=== PATIENT | female | born 1940 | race Caucasian/White ===

== ENCOUNTER 2022-03-02 12:36 | Outpatient (CLI) | payer MEDICARE, BC, SELFPAY | END 2022-03-02 12:37 | disposition home or self-care (01) | LOC: CT 03-21 10:59 | PROVIDERS: Visit Provider Orthopaedic Surgery Sports Medicine | DX: Z41.9 Encounter for procedure for purposes other than remedying health state, unspecified (principal) | CPT/HCPCS: 73200 ==

== ENCOUNTER 2022-03-07 11:00 | Outpatient (RCR) | payer MEDICARE, BC, SELFPAY ==
--- NOTE | 2022-02-07 13:14 | PT.OPDNX ---
PT [place] [facility] Daily [facility] Start: 01/25/22 15:46 Freq: Status: Active Protocol: Document 01/25/22 15:46 ENM (Rec: 01/25/22 15:50 ENM [id number]) E-Signed By Pearl Nguyen DPT PT OP Daily Progress Note Visit Information Note Type No Charge Visit Number 0 Cancellation Note Cancelled Documentation This documentation is for the purpose of transferring information from old EMR to new EMR only. It is not attached to any specific visit or billing. Insurance Information Recert Due Date 02/08/22 Insurance Name Medicare B Medical Diagnosis s/p right reverse TSA Treating Diagnosis right shoulder pain, decreased shoulder ROM, decreased shoulder strength, impaired posture Referring MD Dr. Ventura Home Exercise Home Exercise Comments seated cane flexion, towel slides, OTB rows and shoulder ext Access Code: [email or web address] URL: [email or web address] Date: 12/14/2021 Prepared by: Pearl Nguyen Exercises Supine Shoulder Flexion AAROM with Hands Clasped - 2-3 x daily - 7 x weekly - 1 sets - 5 reps - 20- 30s hold Supine Shoulder Flexion Extension AAROM with Dowel - 2 -3 x daily - 7 x weekly - 1 sets - 10 reps Standing Shoulder External Rotation AAROM with Dowel - 2- 3 x daily - 7 x weekly - 1 sets - 10 reps Objective Other/Pertinent Objective PROM R: flexion 129 with stretch felt at end range abduction 104 ER 67 IR 65 AROM 76 flexion in standing Functional Test Performed & Score SPADI: pain 22/50 44% disability 85/130 Patient Instructed in Risks/Benefits Yes Therapeutic Exercise Therapeutic Exercise: To Restore UBE resistance 75% level 4 x4 Functional Status mins (2 fwd and backwards) supine flexion AROM 2x7 (weak still while performing) seated flexion 2x8 (slight discomfort) seated scaption 2x8 standing towel slide flexion x10 (trialed diagonal but painful) OTB R row x15 (added to HEP) OTB R shoulder ext x15 (added to HEP) standing robbers AROM x10 (RUE only) Manual Therapy Techniques Manual Therapy Techniques STM to mid-distal biceps as most tone and tension in this area Plan of Care Physical Therapy Goals In 3-4 visits: 1. Patient will improve elbow extension without biceps tightness for full elbow ROM MET 2. Patient will display L shoulder PROM elevation >120 in order to progress to AROM MET 3. Patient will implement proper body mechanics with cooking to decrease occurrance of neck tightness MET In 6-10 visits: 1. Patient will be ind with HEP and self management of symptoms 2. Patient will display pain free AROM elevation >120 in order to reach into cupboards comfortably 3. Patient will be able to wash hair without any difficulty or pain 4. Patient will be able to bake and cook with no shoulder pain following for improved cooking tolerance MET 5. Patient will improve SPADI from 85/130 to 72 (MDC 13) to demonstrate improvements in QOL Daily Plan of Care Continue per POC Daily Plan of Care Comments Plan: progress AROM flexion serratus punches in standing WB ex as able AAROM ball roll on wall robber with resistance as able lawnmower Recertification Information Clinical Certification # #[id number] Patient's H.I.C.N.# # I Certify That I Have Established All Therapy Services/Plan Physician Signature Shows Agreement Dates & Medical Necessity Physician Comment/Change Comment or Changes Physician Signature & Date Please Sign/Date Here Physician NPI Number # Document 02/07/22 08:56 ENM (Rec: 02/07/22 10:48 ENM [id number]) E-Signed By Pearl Nguyen DPT PT OP Daily Progress Note Visit Information Note Type Daily Note,Recert/Progress Note Visit Number 10 Insurance Information Recert Due Date 05/08/22 Insurance Name Medicare B Medical Diagnosis s/p right reverse TSA Treating Diagnosis right shoulder pain, decreased shoulder ROM, decreased shoulder strength, impaired posture Referring MD Dr. Ventura Subjective Subjective Patient states that she was working in the garden and she tripped then caught herself. Both of her shoulders have been sore but more on the right side. Today it is feeling better but painful and hard to use the arm. It is still tough reaching all the way into the cupboard. Pain Comments mild-moderate anterior right shoulder, mod in L shoulder Home Exercise Home Exercise Comments seated cane flexion, towel slides, OTB rows and shoulder ext Access Code: [email or web address] URL: [email or web address] Date: 12/14/2021 Prepared by: Pearl Nguyen Exercises Supine Shoulder Flexion AAROM with Hands Clasped - 2-3 x daily - 7 x weekly - 1 sets - 5 reps - 20- 30s hold Supine Shoulder Flexion Extension AAROM with Dowel - 2 -3 x daily - 7 x weekly - 1 sets - 10 reps Standing Shoulder External Rotation AAROM with Dowel - 2- 3 x daily - 7 x weekly - 1 sets - 10 reps Objective Other/Pertinent Objective PROM R: Flexion 129 with stretch felt at end range Abduction 104 AROM R: 70 flexion in standing supine AROM able to perform x3 times before fatigue and pain tender to palpation along short head of biceps Functional Test Performed & Score SPADI: pain 22/50 44% disability 85/130 Patient Instructed in Risks/Benefits Yes Therapeutic Exercise Therapeutic Exercise Minutes (minutes) 18 Therapeutic Exercise: To Restore supine salutes 2x10 Functional Status standing scaption x10 (unable to perform on L due to pain) towel slide incline 2x10 ( fatigued at end of set) pulleys flexion x2 mins ( reporting improvements in pain while performing) Discussed icing to help with symptoms felt in anterior R shoulder after the fall as well as focus on towel slides and pulleys for home along with TB rows *difficulty with AROM this session able to perform 3 reps before pain as well as serratus punches Manual Therapy Techniques Manual Therapy Minutes (minutes) 9 Manual Therapy Techniques STM to mid-distal biceps as most tone and tension in this area *patient reporting improved pains following Treatment Minutes Timed Code Treatment Minutes 27 Total Treatment Time 27 Billing Units Manual Therapy Units 1 Therapeutic Exercise Units 1 Assessment/Impression Assessment/Impression Patient is over 3 months out from reverse total shoulder ( DOS 11/01/21). Patient has made steady improvements in shoulder PROM since start of PT. Now displaying shoulder flexion PROM >120 and abduction >100. Patients shoulder AROM continues to be limited to less than 90 deg in supine and standing. AROM more limited this session compared to last likely due to patients recent fall. Therapist reinforced to patient continuing to work on HEP as well as icing to help with symptoms of soreness from fall in the garden. Therapist will contact MD about current slow gains in motion as patient does not have as much active range of the right shoulder as one would expect this far out from surgery. Will reassess and progress patient as able next session. Plan of Care Physical Therapy Goals In 3-4 visits: 1. Patient will improve elbow extension without biceps tightness for full elbow ROM MET 2. Patient will display L shoulder PROM elevation >120 in order to progress to AROM MET 3. Patient will implement proper body mechanics with cooking to decrease occurrance of neck tightness MET In 6-10 visits: 1. Patient will be ind with HEP and self management of symptoms 2. Patient will display pain free AROM elevation >120 in order to reach into cupboards comfortably 3. Patient will be able to wash hair without any difficulty or pain 4. Patient will be able to bake and cook with no shoulder pain following for improved cooking tolerance MET 5. Patient will improve SPADI from 85/130 to 72 (MDC 13) to demonstrate improvements in QOL Daily Plan of Care Continue per POC Daily Plan of Care Comments Plan: progress AROM flexion serratus punches in standing deltoid strengthening WB ex as able AAROM ball roll on wall robber with resistance as able lawnmower Recertification Information Clinical Certification # #[id number] Patient's H.I.C.N.# # Initial Certification Date 11/16/21 Most Recent Visit 02/07/22 Recertification Start Date 02/07/22 Recertification Due Date 05/08/22 Reasons to Continue Skilled Therapy Patient continues to benefit from skilled PT to further progress functional shoulder strength and ROM. Patient has made steady improvements in shoulder PROM since start of PT. Shoulder AROM has been very slow to progress and limited to less than 90 deg. Rehabilitation Potential fair Continued Plan of Care and Interventions Plan to continue with manual therapy as needed to improve joint mobility and tissue tension. As well as therapeutic exercise to increase functional range and strength. I Certify That I Have Established All Therapy Services/Plan Physician Signature Shows Agreement Dates & Medical Necessity Physician Comment/Change Comment or Changes Physician Signature & Date Please Sign/Date Here Physician NPI Number #
== END 2022-03-07 13:27 | disposition home or self-care (01) ==
PROVIDERS: PCP Family Medicine; Visit Provider Orthopaedic Surgery Sports Medicine
DX: M25.511 Pain in right shoulder (principal)
CPT/HCPCS: 97110; 97140

== ENCOUNTER 2022-03-21 14:07 | Outpatient (CLI) | payer MEDICARE, BC, SELFPAY ==
[2022-03-21 17:55] LABS: Chloride* 103 mmol/L (96-114); Potassium* 4.4 mmol/L (3.6-5.1); Sodium* 139 mmol/L (135-149)
[2022-03-21 17:58] LABS: Blood Urea Nitrogen* 20 mg/dL (7-30); Calcium* 9.4 mg/dL (8.4-10.6); Carbon Dioxide* 28 mmol/L (20-32); Creatinine* 0.8 mg/dL (0.5-1.5); Estimated Glomerular Filt Rate 73 ml/min; Glucose* 97 mg/dL (60-115)
[2022-03-21 20:12] LABS: SARS PCR* Negative SARS-CoV-2 (Negative)
== END 2022-03-21 14:08 | disposition home or self-care (01) ==
PROVIDERS: Visit Provider Family Medicine
DX: Z20.822 Contact with and (suspected) exposure to COVID-19 (principal); Z01.818 Encounter for other preprocedural examination
CPT/HCPCS: 80048; 87635

== ENCOUNTER 2022-03-23 08:26 | Day surgery (SDC) | payer MEDICARE, BC, SELFPAY ==
[2022-03-23] VITALS (22 sets, daily range): BP systolic 98–141; BP diastolic 54–79; PULSE 61–78; RESP 16–20; TEMP 35.4–36.8; O2SAT 90–99; BMI 28.1
[2022-03-23] MEDS: CELECOXIB 200 MG CAPSULE PO (09:00)
[2022-03-23] MEDS: OXYCODONE (CR) 10 MG TAB.ER.12H PO (09:00)
[2022-03-23] MEDS: ACETAMINOPHEN 500 MG TABLET 1000 MG PO ×2 (09:00→18:25)
[2022-03-23] MEDS: SODIUM CHLORIDE 0.9 % (FLUSH) 10 ML SYRINGE IVF (09:15)
[2022-03-23] MEDS: LACTATED RINGERS 1000 ML 1,000 ML 100 ML IV (09:15)
[2022-03-23] MEDS: fentaNYL 100 MCG/2 ML inj IVP (09:54)
[2022-03-23] MEDS: MIDAZOLAM HCL 1 MG/ML inj IVP (09:54)
--- NOTE | 2022-03-23 09:58 | SUR.PREOP ---
TIME?OUT:?0953 PT/RN/MDA?VERIFICATION?OF?SURGICAL?SITE,?PROCEDURE,?AND?CONSENT OBTAINED?PRIOR?TO?INVASIVE?PROCEDURE.
--- NOTE | 2022-03-23 09:59 | W.PM.NB ---
Nerve Block Nerve Block Time Seen by Provider: 09:59 Date Seen: 03/23/22 Type of block requested by surgeon for post-operative analgesia: interscalene Side: left Time out performed: Yes Verification of patient name: Yes Verification of date of : Yes Site marking: site marked Name of person performing procedure: Richie Continuous monitoring Was continuous monitoring of O2 sat, B/P, insurance claims representative, recorded every 15 minutes?: Yes Procedure Checklist: sterile prep, needles and gloves Ultrasound guided. Images saved: Yes Medications given in 5ml increments after negative aspiration: Ropivicaine %: 0.5 mL: 20 Needle gauge: 22 Decadron (mg): 10 Precedex (mcg): 25 Patient tolerated procedure well: Yes Block Charges Block Charge (with Pro Fee): Brachial Plexus Use of Ultrasound Machine for Block: Yes- US Guidance/pain block
--- NOTE | 2022-03-23 10:40 | CRLHL7_ITS ---
For Patients: As a result of the Cures Act, medical imaging exams and procedure reports are released immediately into your electronic medical record. You may view this report before your referring provider. If you have questions, please contact your health care provider. Indication: POST OP Technique: Four views left shoulder Findings/Impression: Hardware from a reverse left total shoulder arthroplasty is in satisfactory position. Bone alignment is normal. No sign of acute fracture. Postop changes are within normal limits. Dictated by Yonatan Kay MD @ 03/24/2022 8:26:16 AM (Electronically Signed)
[2022-03-23] MEDS: CEFAZOLIN 2 GM in 0.9 % SODIUM CHLORIDE Mini-bag 100 ML IVPB (10:48)
--- NOTE | 2022-03-23 12:08 | PM.ORPRC ---
Procedure Note Date of procedure: 03/23/22 Procedure: PREOPERATIVE DIAGNOSIS: 1. Left shoulder cuff tear arthropathy 2. Left long head of the biceps tendinopathy and tenosynovitis POSTOPERATIVE DIAGNOSIS: 1. Left shoulder cuff tear arthropathy 2. Left long head of the biceps tendinopathy and tenosynovitis PROCEDURE: 1. Left reverse shoulder arthroplasty. 2. Left long head of biceps open tenodesis SURGEON: Kristofer Ventura MD. [employer] DIV[employer] DIRECTOR: Roberth Barry PA-C; Stan ESCOBAR - Of note, a skilled blood and plasma laboratory assistant was critical for this case to aid in patient positioning, tissue retraction, limb manipulation/positioning, retraction for glenoid exposure, which was challenging, awareness and protection of critical structures, and closure. ANESTHESIA: General plus supraclavicular block IMPLANTS: DJ0 surgical Altivate humeral stem size 10 small shell, short with P2 porous coating vitamin E neutral poly small socket insert RSP glenoid base plate P2 porous coating with 4 perimeter locking screws 32 neutral glenosphere with retaining screw COMPLICATIONS: None evident INDICATIONS: The patient is a pleasant 81-year-old female who has experienced severe left shoulder pain and difficulty with use. Workup included imaging which revealed severe osteoarthrosis along with concern for rotator cuff quality. Physical exam was consistent with associated pain. Given the deformity, the dysfunction, and the pain, and failure of nonoperative management, recommendation was made for surgery. * Of note, the humeral head was resting subluxed anteriorly/anterosuperiorly during positioning and preparation. It was reducible with a posterior directed force, but was greater than 50% subluxed. This is consistent with her cuff tear arthropathy pathology. DESCRIPTION OF PROCEDURE: Following a thorough discussion of risks, benefits, and alternatives, consent was obtained and the left shoulder was marked. The patient was brought to the operating room and placed supine on the operating table. Induction of anesthesia was undertaken. 1 g IV Ancef and 1 g tranexamic acid was administered within 1 hr of incision preoperatively. Appropriate time-out was performed identifying proper patient, site, and procedure. The operative extremity was prepped and draped in the appropriate sterile fashion using ChloraPrep after the patient was positioned in the lazy beach chair position with head in neutral alignment and all bony prominences well padded. A longitudinal incision was made for deltopectoral approach. Deltoid was retracted laterally. Cephalic vein was retracted laterally as well. The clavipectoral fascia was identified and divided longitudinally staying lateral to the conjoined tendon / coracoid. The conjoined tendon was protected with a blunt Hohmann. The long head of the biceps tendon was identified and the bicipital sheath released. The upper 1/5 of the pectoralis major was also released from its insertion. The long head of the biceps was tenodesed to the pectoralis major tendon. The remaining proximal tendon tissue was excised. The rotator cuff was inspected and found to have good integrity with the subscapularis but fair integrity with a supraspinatus], and a decision for a reverse shoulder arthroplasty was confirmed. The long head of biceps, of note, was significant flattened, thickened, with abundant tenosynovitis. A subscapularis cuff of tissue was left via tenotomy for later repair with the remaining subscapularis released in a subperiosteal fashion with the Bovie. This was tagged for later repair. The 3 sisters were cauterized. The upper subscapularis was released from the capsule with a curved Bishop scissors towards the glenoid. The inferior subscapularis was divided from the capsular tissue on its caudal surface with particular caution for the axillary nerve. This was palpated anterior to the subscapularis both prior to and near the finish of the case. Inferior humeral head osteophytes were excised with caution taken throughout the case with regards to the axillary nerve. The humerus was dislocated, and humeral head cut completed. The Sizer was placed and the central drill hole created. Then a protector plate was applied. We turned our attention to the glenoid. The humerus was retracted posteriorly. The subscap was protected anteriorly and the labrum/long head biceps origin was excised circumferentially. The capsule was released along the anterior and inferior portions of the glenoid cautiously with a Contreras elevator being careful not to penetrate deep. The glenoid had appropriate exposure, and was prepared with the cannulated system with a target of approximately 5-10? of inferior tilt and neutral anteversion (patient had 4 ? of retroversion initially). After placing the guide pin, the tap was placed followed by the glenoid reaming with the 2 different sized Reamer. Following this, preparation was complete with this central drill, the real base plate was opened, and inserted, and excellent purchase was achieved with the central screw. Peripheral screws were then drilled, measured, and placed accordingly again achieving excellent purchase. The glenosphere was then placed consistent with the preoperative plan utilizing the above noted glenosphere. After securing the glenosphere with the locking torque limited screw, attention was turned back to the humerus. A canal finer was placed followed by various reamers. The real humeral stem was then opened and inserted with excellent metaphyseal fit and stability. Trial poly was placed and the shoulder reduced. Excellent reduction and stability achieved. At this stage, the trial implants were removed, and the real implants inserted. A 3 minute Betadine soak was performed followed by a thorough irrigation with normal saline. Subscapularis was repaired with # 1 PDS to the cuff of tissue on the lesser tuberosity. Excellent reapproximation of tissue achieved. No rotator interval tissue repair was possible as the supraspinatus was nonexistent. Hemostasis was found to be appropriate. The deltopectoral interval was reapproximated with 0 Vicryl, subcutaneous and subcuticular closure was then performed with number 2-0 Vicryl and 4-0 Monocryl, respectively. A skilled blood and plasma laboratory assistant was critical for this case to aid in patient positioning, tissue retraction, limb manipulation/positioning, retraction for glenoid exposure, which was challenging, awareness and protection of critical structures, and closure. PLAN: 1. Sling at all times for the operative upper extremity. 2. AROM of elbow, forearm, wrist, and digits as tolerated. 3. PT/OT consults for education and assistance. 4. Social consult for discharge planning. 5. 23 hr perioperative antibiotics. 6. Early ambulation, and SCDs for DVT prophylaxis. 7. Admit to the hospital for the above 8. Analgesics p.r.n.
--- NOTE | 2022-03-23 12:44 | SUR.OPER ---
Patient transferred to OR3 from Same day surgery via bed. Patient was assisted to transfer to OR table. Patient was positioned per SAND TECHNICIAN and PA. patient was covered with warm blankets x2 to provide warmth and comfort.
--- NOTE | 2022-03-23 12:52 | W.ANESCHARGE ---
Anesthesia Charges Start Date/Time Anesthesia Start Date: 03/23/22 Anesthesia Start Time: 10:34 Stop Date/Time Anesthesia Stop Date: 03/23/22 Anesthesia Stop Time: 12:47 Summary Emergency: No Extremes of Age: Over 70-CPT 71544
--- NOTE | 2022-03-23 13:08 | W.ANESCHARGE ---
Anesthesia Charges Start Date/Time Anesthesia Start Date: 03/23/22 Anesthesia Start Time: 10:34 Stop Date/Time Anesthesia Stop Date: 03/23/22 Anesthesia Stop Time: 12:47 Summary Emergency: No Extremes of Age: Over 70-CPT 18784
[2022-03-23] MEDS: LACTATED RINGERS 1000 ML 1,000 ML 75 ML IV (13:25)
--- NOTE | 2022-03-23 14:11 | PM.IMCN1 ---
Date of Consult Consult date: 03/23/22 Primary Care Provider: Piero Vega MD Consult Narrative Reason for consult: Medical Management Narrative: Mariposa Dukes is a 81 year old female who underwent a successful Left Total Shoulder Arthroplasty today who is now resting comfortably. She has no complaints or concerns and states her pain is under good control Review of Systems Status of ROS: Reports: 10 or more systems reviewed and unremarkable except as noted in History and below PFSH PFSH Medical History (Updated 03/23/22 @ 14:24 by Evert Pierre MD) Diverticulosis (12/09/10) Hyperlipidemia (12/01/09) Hypertension (12/01/09) Left knee DJD Surgical History (Updated 03/23/22 @ 14:22 by Evert Pierre MD) History of arthroplasty of left shoulder History of right inguinal hernia repair (12/01/09) S/P cataract extraction S/p reverse total shoulder arthroplasty Status post reverse arthroplasty of left shoulder Family History Father Colon cancer Mother Heart problem Social History Highest level of school completed/degree received: GED or equivalent Smoking Status: Never smoker Do you use any of these nicotine containing products: None Second hand tobacco smoke exposure: No How often do you have a drink containing alcohol: 2-4 times a month Alcohol type: hard liquor How many standard drinks containing alcohol do you have on a typical day: 1 or 2 How often do you have six or more drinks on one occasion: Never AUDIT-C Alcohol total score: 2 Non-prescribed substance use: denies use Caffeine: Yes (coffee, 1 cup/am) Are you now , , , , never or living with a partner: Social isolation score (0-1 are the most socially isolated patients): 1 service: No Meds Home Medications and Allergies Home Medication Comments: Amlodipine 5 mg daily and Celebrex 200 mg daily Allergies Allergy/AdvReac Type Severity Reaction Status Date / Time No Known Allergies Allergy Verified 03/23/22 08:41 Exam Narrative: Exam Narrative: EXAM GENERAL: Patient appears comfortable and well. L shoulder is in a sling. EYES: No scleral icterus. THYROID: no thyroid nodules or thyromegaly. LYMPH: No supraclavicular or cervical lymphadenopathy. SKIN: Visible skin seen during exam normal or with benign process only. EXT: No dependent lower extremity pedal edema. HEART: Regular rate and rhythm with no murmurs, rubs, or gallops. LUNGS: Clear to auscultation bilaterally with no crackles or wheezes. ABD: Soft, non tender, non distended. PSYCH: Good eye contact, speech is not pressured. Const: Vital Signs, click to edit/add: Vital Signs - 24 hr 03/23/22 08:46 03/23/22 09:55 03/23/22 10:00 Temperature 98.1 F Pulse Rate 68 66 61 Respiratory Rate 16 16 16 Blood Pressure 124/79 123/71 104/55 L Pulse Oximetry 95 96 96 Oxygen Delivery Me thod Room Air Nasal Cannula Nasal Cannula Oxygen Flow Rate 2 2 03/23/22 10:05 03/23/22 10:15 03/23/22 12:45 Temperature 97.4 F L Pulse Rate 61 62 67 Respiratory Rate 16 16 16 Blood Pressure 105/57 L 98/54 L 141/74 H Pulse Oximetry 95 96 97 Oxygen Delivery Me thod Nasal Cannula Nasal Cannula Nasal Cannula Oxygen Flow Rate 2 2 1 03/23/22 12:50 03/23/22 12:55 03/23/22 13:00 Temperature Pulse Rate 65 66 67 Respiratory Rate 16 16 20 Blood Pressure 129/69 131/70 124/72 Pulse Oximetry 96 96 93 Oxygen Delivery Me thod Room Air Oxygen Flow Rate 03/23/22 13:05 03/23/22 13:10 Temperature Pulse Rate 67 69 Respiratory Rate 18 16 Blood Pressure 132/72 133/70 Pulse Oximetry 92 90 Oxygen Delivery Me thod Oxygen Flow Rate Labs Labs: Reviewed Assessment and Plan Assessment and plan (1) History of arthroplasty of left shoulder: Status: Acute Assessment and Plan: Pt doing well with no complaints. She states her pain is under good control and anticipates going home tomorrow. Pre op labs reasonable. Will hold Celebrex for now. Pt is to be a full code. (2) Hypertension: Status: Chronic Assessment and Plan: Will continue to monitor vital signs carefully and plan to resume her Amlodipine at 5 mg daily.
--- NOTE | 2022-03-23 15:58 | PC.NURSE ---
Pt. alert and oriented x4. Pleasant and cooperative. up to floor at 1320. Pt. rated pain 0/10. Dressing to left shoulder C/D/I. Cryocuff to site. Bilateral teds and plexi pulses applied. Pt. denies N/V and dizziness. Pt. up to bedside commode at 1445, voided and tolerated fine. Pt. tolerating ice chips and sips of water. Family at bedside. LR running at 75mls. IV to right hand intact and patent.
[2022-03-23] MEDS: CEFAZOLIN 1 GM in 0.9 % SODIUM CHLORIDE Mini-bag 100 ML IVPB (18:25)
[2022-03-23] MEDS: SENNOSIDES 1 TAB TABLET 2 TAB PO (21:09)
--- NOTE | 2022-03-23 23:39 | PC.NURSE ---
Pt up with SBA within the room. Denies N/V, and pain in left shoulder No feeling or movement of left fingers. Left fingers are warm with good capillary refill. This is patient's second shoulder surgery and understand POC when returning home. Cryocuff to left shoulder.
[2022-03-24] VITALS: BP 140/71; PULSE 84; RESP 20; TEMP 36.2; O2SAT 100
[2022-03-24] MEDS: ACETAMINOPHEN 500 MG TABLET 1000 MG PO ×2 (00:25→05:50)
[2022-03-24] MEDS: CEFAZOLIN 1 GM in 0.9 % SODIUM CHLORIDE Mini-bag 100 ML IVPB ×2 (00:31→08:43)
[2022-03-24] MEDS: MELATONIN 3 MG TABLET PO (01:04)
[2022-03-24 03:15] VITALS: BP 129/70; PULSE 73; RESP 20; TEMP 36.1; O2SAT 97
[2022-03-24] MEDS: LACTATED RINGERS 1000 ML 1,000 ML 75 ML IV (03:17)
[2022-03-24 06:28] LABS: Hematocrit 40.2 % (33.0-51.0); Mean Corpuscular HGB Conc 32 gm/dL (32-36); Mean Corpuscular Hemoglobin 32 pg (26-34); Mean Corpuscular Volume 99 fL (80-100); Platelet Count* 310 K/uL (140-440); Red Blood Count 4.05 m/uL (4.00-5.20); White Blood Count* 12.37 K/uL (4.50-11.00)
--- NOTE | 2022-03-24 06:39 | PC.NURSE ---
END OF SHIFT NOTE: PT PLEASANT AND COOPERATIVE. PT AMBULATES WITH GB, SBA. TOLERATES WELL. PT DENIES CP, SOB, N/V. PT DENIES PAIN TO RIGHT SHOULDER 0/10. CRYO CUFF PLACED ON RIGHT SHOULDER AND SUPPORTED WITH A PILLOW. LSCTA. VSS ON RA; AFEBRILE. ?
[2022-03-24 06:46] LABS: Potassium* 4.1 mmol/L (3.6-5.1); Sodium* 137 mmol/L (135-149)
[2022-03-24 06:49] LABS: Blood Urea Nitrogen* 15 mg/dL (7-30); Creatinine* 0.6 mg/dL (0.5-1.5); Est. Creatinine Clearance* 32.17; Estimated Glomerular Filt Rate 89 ml/min
[2022-03-24 07:06] LABS: Slide Review Reflex No
[2022-03-24] MEDS: SENNOSIDES 1 TAB TABLET 2 TAB PO (08:43)
[2022-03-24] MEDS: AMLODIPINE 5 MG TABLET PO (08:44)
[2022-03-24 08:45] VITALS: BP 107/82; PULSE 80; RESP 16; TEMP 36; O2SAT 100
--- NOTE | 2022-03-24 09:11 | P.DS_ITS ---
DS: Providers Provider Date Seen: 03/24/22 Primary care physician: Piero Vega MD Consults: 03/23/22 13:12 Consult to Occupational Therapy [CONS] Routine Comment: Reason(s) for OT Consult:: Evaluate and Treat Any Restrictions?:: See Comment Comment: ROM elbow, forearm, wrist, digits PRN Shoulder pendulums okay No active shoulder ROM Consult to Physical Therapy [CONS] Routine Comment: Reason(s) for PT Consult:: Evaluate and Treat Any Restrictions?:: No Restrictions Consult to Physician [CONS] Routine Comment: Consulting Provider: Hospitalists Has provider been notified: No Consult to Wood Pattern Maker [CONS] Routine Comment: Reason for Consult:: Discharge Planning Needs Attending Physician on discharge: Kristofer Ventura MD Date of Discharge: 03/24/22 DS: Diagnosis Discharge Diagnosis (1) Status post reverse arthroplasty of left shoulder: Status: Acute (2) Hypertension: Status: Chronic DS: Summary Hospital Course Hospital Course: 81-year-old female admitted to the hospital for left reverse total shoulder arthroplasty. Procedure was performed on the day of admission by Dr. Ventura. There were no operative complications. Postoperatively she has done well. Pain has been adequately controlled. She has noted no respiratory problems. She has been eating normally. Without nausea. Previous right shoulder surgery led to fairly severe problems with constipation. She is concerned about this. Status at Discharge Functional status at discharge: independent ambulation Overall status at discharge: patient is back to baseline Time Spent with Patient Time attestation: Total time spent providing and/or coordinating discharge services: Time spent: Less than 30 minutes Exam Narrative: Exam Narrative: She is alert and appears in no distress. Speech is normal. Breathing is unlabored. She has return of sensation and motion in her left hand. Good peripheral pulses. Good capillary refill. Const: Vital Signs, click to edit/add: Vital Signs - 24 hr 03/23/22 09:55 03/23/22 10:00 03/23/22 10:05 Temperature Pulse Rate 66 61 61 Pulse Rate [Left P ulse Oximeter] Respiratory Rate 16 16 16 Blood Pressure 123/71 104/55 L 105/57 L Blood Pressure [Ri ght Arm] Pulse Oximetry 96 96 95 Oxygen Delivery Me thod Nasal Cannula Nasal Cannula Nasal Cannula Oxygen Flow Rate 2 2 2 03/23/22 10:15 03/23/22 12:45 03/23/22 12:50 Temperature 97.4 F L Pulse Rate 62 67 65 Pulse Rate [Left P ulse Oximeter] Respiratory Rate 16 16 16 Blood Pressure 98/54 L 141/74 H 129/69 Blood Pressure [Ri ght Arm] Pulse Oximetry 96 97 96 Oxygen Delivery Me thod Nasal Cannula Nasal Cannula Oxygen Flow Rate 2 1 03/23/22 12:55 03/23/22 13:00 03/23/22 13:05 Temperature Pulse Rate 66 67 67 Pulse Rate [Left P ulse Oximeter] Respiratory Rate 16 20 18 Blood Pressure 131/70 124/72 132/72 Blood Pressure [Ri ght Arm] Pulse Oximetry 96 93 92 Oxygen Delivery Me thod Room Air Oxygen Flow Rate 03/23/22 13:10 03/23/22 13:20 03/23/22 13:30 Temperature 95.7 F L 97.6 F Pulse Rate 69 67 Pulse Rate [Left P ulse Oximeter] 67 Respiratory Rate 16 16 16 Blood Pressure 133/70 Blood Pressure [Ri ght Arm] 133/57 L 125/65 Pulse Oximetry 90 98 Oxygen Delivery Me thod Room Air Room Air Oxygen Flow Rate 03/23/22 13:45 03/23/22 14:00 03/23/22 14:15 Temperature 97.6 F 97.8 F Pulse Rate Pulse Rate [Left P ulse Oximeter] 68 69 72 Respiratory Rate 16 16 16 Blood Pressure Blood Pressure [Ri ght Arm] 126/68 130/72 127/64 Pulse Oximetry 98 97 97 Oxygen Delivery Me thod Room Air Room Air Room Air Oxygen Flow Rate 03/23/22 14:45 03/23/22 15:00 03/23/22 19:00 Temperature 97.8 F 98.2 F Pulse Rate Pulse Rate [Left P ulse Oximeter] 69 68 78 Respiratory Rate 16 18 18 Blood Pressure Blood Pressure [Ri ght Arm] 120/65 127/70 115/61 Pulse Oximetry 98 99 97 Oxygen Delivery Me thod Room Air Room Air Room Air Oxygen Flow Rate 03/23/22 18:00 03/23/22 17:00 03/23/22 16:00 Temperature 98.0 F 97.8 F Pulse Rate Pulse Rate [Left P ulse Oximeter] 74 75 76 Respiratory Rate 18 18 18 Blood Pressure Blood Pressure [Ri ght Arm] 101/60 103/71 102/73 Pulse Oximetry 98 97 97 Oxygen Delivery Me thod Room Air Room Air Room Air Oxygen Flow Rate 03/24/22 00:00 03/24/22 03:15 03/24/22 08:45 Temperature 97.1 F L 96.9 F L 96.8 F L Pulse Rate Pulse Rate [Left P ulse Oximeter] 84 73 80 Respiratory Rate 20 20 16 Blood Pressure Blood Pressure [Ri ght Arm] 140/71 H 129/70 107/82 Pulse Oximetry 100 97 100 Oxygen Delivery Me thod Room Air Room Air Room Air Oxygen Flow Rate Documenting provider has reviewed patient's vital signs: yes DS: Data Data Completed and Pending Labs on day of discharge: Labs from last 24 hours 03/24/22 03/24/22 05:49 05:49 WBC 12.37 H RBC 4.05 Hgb 13.0 Hct 40.2 MCV 99 MCH 32 MCHC 32 Plt Count 310 Sodium 137 Potassium 4.1 BUN 15 Creatinine 0.6 Estimated Creat Clear 32.17 Estimated GFR 89 Discharge Plan Discharge Disposition: Home, Self-Care Discharging Surgeon: Kristofer Ventura Follow-Up Appointment: 1 week PO with TERRANCE Prescriptions: New acetaminophen 500 mg capsule 500 - 1,000 mg PO Q6H MDD 4000mg PRNQty: 100 0RF oxycodone 5 mg tablet 2.5 - 5 mg PO Q4-6H MDD 6 PRN (Reason: pain) Qty: 30 0RF Rx Instructions: Take as needed for postop pain: 2.5mg mild pain, 5mg moderate-severe pain; wean as tolerated. senna 8.6 mg capsule 8.6 mg PO BID PRN (Reason: constipation) Qty: 100 0RF Rx Instructions: 1-4 capsules twice daily as needed Continued amlodipine 5 mg tablet 5 mg PO DAILY Qty: 90 3RF celecoxib [Celebrex] 200 mg capsule 200 mg PO QDAY Qty: 90 3RF Activity Level: Activity as Tolerated Activity Detail: No left upper extremity weight-bearing, or lifting; wear sling at all times except for elbow range of motion. Wound: ?Do not remove original dressing; we will remove this at first postop visit in 1 week. Only remove dressing if integrity is in question. ?No immersing wound in water; showering okay; light scrub with your hand and body soap, rinse, dab dry ?Sutures are under the skin, will dissolve; allow surgical glue to come off naturally; do not scrub the wound or apply ointments/lotions ?Call our office with any redness that streaks, excessive drainage from the wound, or wound gapping. Ice/Elevate: ?Ice as needed for swelling and discomfort (cryocuff or ice pack); elevate frequently above the heart DAVID socks: ?Wear for 1 month, remove for 1 hour 3 times per day ?These are frustrating to take on/off, but are important for blood clot prevention for 1 month after surgery Blood Clot Prevention (DVT): David socks Driving: ?Do not drive while taking narcotic pain medication ?No elective dental work for 6 months post-op. If there is an urgent/emergent dental need, contact our office for an antibiotic prescription. Smoking/Alcohol: ?Do not smoke; do no drink alcohol especially when taking postoperative oral narcotic medication Seek Care from you Primary Care Provider if you experience the following issues in the postoperative phase and beyond: ?Bacterial infections such as: pneumonia, bacterial skin infection (cellulitis), UTI, high fever, chills unrelated to the operative body part - call your primary care physician urgently for treatment in hopes to protect your health and the metal implant. Referrals: ?PT, OT per patient preference - evaluate/treat total left reverse total shoulder arthroplasty protocol (ROM, ADLs) Follow up: ?Ortho surgeon follow-up in 6 weeks; repeat radiographs 3 views left shoulder ?GAVIN-Sukh visit in 1 week *If there are any acute concerns regarding your surgery, please call our orthopedic clinic ([phone]) Discharge Diet: Regular Patient Instructions: Surgical Site Infections (DC) Forms: Work/Release Restrictions Follow-up: [facility] [Other] - 04/07/22 11:00 am Piero Vega MD [Primary Care Provider] - Roberth Barry PA-C [Physician Public Relations Associate] - 03/31/22 8:50 am Discharge Orders: Discharge Order (Routine); Ordered 03/24/22 Ordered By: Júnior Sears
--- NOTE | 2022-03-24 09:17 | P.ORPN_ITS ---
Subjective Subjective Date Seen: 03/24/22 Principal diagnosis: Status postop day 1, left reverse total shoulder arthroplasty Interval history: Patient reports doing well. No acute events over night. Pain managed with scheduled /PRN medications and ice (has not needed oxycodone). DVT protection: bilateral knee high Maximilian stockings, and SCDs. Denies fevers, chills, aches, N/V, CP, SOB/SHANE, tachycardia, or lightheadedness. Ortho Exam Narrative Exam Narrative: -Patient appears comfortable in recliner; no apparent acute distress -Alert and oriented times 3 -Operative left shoulder mildly swollen; soft tissues supple; no obvious erythema. Ecchymosis minimal. Warmth appropriate -Surgical dressing clean, dry, intact; no obvious drainage, no erythematous streaking peripheral to the bandage -bilateral calves are soft, nontender no swelling, edema, tenderness, erythema, discoloration, warmth, or palpable cords -2+ radial pulse, intact dermatomes and myotomes distally (5/5 strength) Const Vital Signs, click to edit/add: Vital Signs - 24 hr 03/23/22 09:55 03/23/22 10:00 03/23/22 10:05 Temperature Pulse Rate 66 61 61 Pulse Rate [Left Pulse Oximeter] Respiratory Rate 16 16 16 Blood Pressure 123/71 104/55 L 105/57 L Blood Pressure [Right Arm] Pulse Oximetry 96 96 95 Oxygen Delivery Method Nasal Cannula Nasal Cannula Nasal Cannula Oxygen Flow Rate 2 2 2 03/23/22 10:15 03/23/22 12:45 03/23/22 12:50 Temperature 97.4 F L Pulse Rate 62 67 65 Pulse Rate [Left Pulse Oximeter] Respiratory Rate 16 16 16 Blood Pressure 98/54 L 141/74 H 129/69 Blood Pressure [Right Arm] Pulse Oximetry 96 97 96 Oxygen Delivery Method Nasal Cannula Nasal Cannula Oxygen Flow Rate 2 1 03/23/22 12:55 03/23/22 13:00 03/23/22 13:05 Temperature Pulse Rate 66 67 67 Pulse Rate [Left Pulse Oximeter] Respiratory Rate 16 20 18 Blood Pressure 131/70 124/72 132/72 Blood Pressure [Right Arm] Pulse Oximetry 96 93 92 Oxygen Delivery Method Room Air Oxygen Flow Rate 03/23/22 13:10 03/23/22 13:20 03/23/22 13:30 Temperature 95.7 F L 97.6 F Pulse Rate 69 67 Pulse Rate [Left Pulse Oximeter] 67 Respiratory Rate 16 16 16 Blood Pressure 133/70 Blood Pressure [Right Arm] 133/57 L 125/65 Pulse Oximetry 90 98 Oxygen Delivery Method Room Air Room Air Oxygen Flow Rate 03/23/22 13:45 03/23/22 14:00 03/23/22 14:15 Temperature 97.6 F 97.8 F Pulse Rate Pulse Rate [Left Pulse Oximeter] 68 69 72 Respiratory Rate 16 16 16 Blood Pressure Blood Pressure [Right Arm] 126/68 130/72 127/64 Pulse Oximetry 98 97 97 Oxygen Delivery Method Room Air Room Air Room Air Oxygen Flow Rate 03/23/22 14:45 03/23/22 15:00 03/23/22 19:00 Temperature 97.8 F 98.2 F Pulse Rate Pulse Rate [Left Pulse Oximeter] 69 68 78 Respiratory Rate 16 18 18 Blood Pressure Blood Pressure [Right Arm] 120/65 127/70 115/61 Pulse Oximetry 98 99 97 Oxygen Delivery Method Room Air Room Air Room Air Oxygen Flow Rate 03/23/22 18:00 03/23/22 17:00 03/23/22 16:00 Temperature 98.0 F 97.8 F Pulse Rate Pulse Rate [Left Pulse Oximeter] 74 75 76 Respiratory Rate 18 18 18 Blood Pressure Blood Pressure [Right Arm] 101/60 103/71 102/73 Pulse Oximetry 98 97 97 Oxygen Delivery Method Room Air Room Air Room Air Oxygen Flow Rate 03/24/22 00:00 03/24/22 03:15 03/24/22 08:45 Temperature 97.1 F L 96.9 F L 96.8 F L Pulse Rate Pulse Rate [Left Pulse Oximeter] 84 73 80 Respiratory Rate 20 20 16 Blood Pressure Blood Pressure [Right Arm] 140/71 H 129/70 107/82 Pulse Oximetry 100 97 100 Oxygen Delivery Method Room Air Room Air Room Air Oxygen Flow Rate Assessment and Plan Assessment and plan (1) Status post reverse arthroplasty of left shoulder: Problem details: POD 1 Status: Acute (2) Hypertension: Status: Chronic Plan * PT/OT consult while in hospital * Complete 23 hour postop antibiotics * Medical management per hospitalist is appreciated * DVT ppx: teds and SCDs * Pain management as prescribed (she did not use very many narcotics for pain control in October 2021 for her right shoulder. * Discharge plan: Home today with (03/24/22) if medical appropriate, pain is well controlled, and safe deemed by therapy
--- NOTE | 2022-03-24 10:03 | PM.DS1 ---
DS: Providers Provider Date Seen: 03/24/22 Date of admission: 03/23/22 med/surg recovery Primary care physician: Piero Vega MD Consults: 03/23/22 13:12 Consult to Occupational Therapy [CONS] Routine Comment: Reason(s) for OT Consult:: Evaluate and Treat Any Restrictions?:: See Comment Comment: ROM elbow, forearm, wrist, digits PRN Shoulder pendulums okay No active shoulder ROM Consult to Physical Therapy [CONS] Routine Comment: Reason(s) for PT Consult:: Evaluate and Treat Any Restrictions?:: No Restrictions Consult to Physician [CONS] Routine Comment: Consulting Provider: Hospitalists Has provider been notified: No Consult to Thermostat Mechanic [CONS] Routine Comment: Reason for Consult:: Discharge Planning Needs Attending Physician on discharge: Kristofer Ventura MD Date of Discharge: 03/24/22 DS: Diagnosis Discharge Diagnosis (1) Status post reverse arthroplasty of left shoulder: Status: Acute Problem details: POD 1 DS: Summary Hospital Course Hospital Course: 81-year-old female admitted to the hospital for left reverse total shoulder arthroplasty. Procedure was performed on the day of admission by Dr. Ventura. There were no operative complications. Postoperatively she has done well. Pain has been adequately controlled. She has noted no respiratory problems. She has been eating normally. Without nausea. Previous right shoulder surgery led to fairly severe problems with constipation. She is concerned about this. The patient has a history of left shoulder cuff tear arthropathy, and long head biceps tendinopathy. After appropriate preoperative evaluation, the patient underwent left reverse total shoulder arthroplasty. Postoperatively, patient did quite well without significant pain. The patient was progressed to PT/OT and was felt ready for discharge to home with spouse. Status at Discharge Functional status at discharge: independent ambulation Overall status at discharge: patient is progressing back to baseline Time Spent with Patient Time attestation: Total time spent providing and/or coordinating discharge services: Time spent: Less than 30 minutes Exam Const: Vital Signs, click to edit/add: Vital Signs - 24 hr 03/23/22 10:05 08/24/22 10:15 03/23/22 12:45 Temperature 97.4 F L Pulse Rate 61 62 67 Pulse Rate [Left P ulse Oximeter] Respiratory Rate 16 16 16 Blood Pressure 105/57 L 98/54 L 141/74 H Blood Pressure [Ri ght Arm] Pulse Oximetry 95 96 97 Oxygen Delivery Me thod Nasal Cannula Nasal Cannula Nasal Cannula Oxygen Flow Rate 2 2 1 03/23/22 12:50 03/23/22 12:55 03/23/22 13:00 Temperature Pulse Rate 65 66 67 Pulse Rate [Left P ulse Oximeter] Respiratory Rate 16 16 20 Blood Pressure 129/69 131/70 124/72 Blood Pressure [Ri ght Arm] Pulse Oximetry 96 96 93 Oxygen Delivery Me thod Room Air Oxygen Flow Rate 03/23/22 13:05 03/23/22 13:10 03/23/22 13:20 Temperature 95.7 F L Pulse Rate 67 69 67 Pulse Rate [Left P ulse Oximeter] Respiratory Rate 18 16 16 Blood Pressure 132/72 133/70 Blood Pressure [Ri ght Arm] 133/57 L Pulse Oximetry 92 90 Oxygen Delivery Me thod Room Air Oxygen Flow Rate 03/23/22 13:30 03/23/22 13:45 03/23/22 14:00 Temperature 97.6 F 97.6 F Pulse Rate Pulse Rate [Left P ulse Oximeter] 67 68 69 Respiratory Rate 16 16 16 Blood Pressure Blood Pressure [Ri ght Arm] 125/65 126/68 130/72 Pulse Oximetry 98 98 97 Oxygen Delivery Me thod Room Air Room Air Room Air Oxygen Flow Rate 03/23/22 14:15 03/23/22 14:45 03/23/22 15:00 Temperature 97.8 F 97.8 F Pulse Rate Pulse Rate [Left P ulse Oximeter] 72 69 68 Respiratory Rate 16 16 18 Blood Pressure Blood Pressure [Ri ght Arm] 127/64 120/65 127/70 Pulse Oximetry 97 98 99 Oxygen Delivery Me thod Room Air Room Air Room Air Oxygen Flow Rate 03/23/22 19:00 03/23/22 18:00 03/23/22 17:00 Temperature 98.2 F 98.0 F Pulse Rate Pulse Rate [Left P ulse Oximeter] 78 74 75 Respiratory Rate 18 18 18 Blood Pressure Blood Pressure [Ri ght Arm] 115/61 101/60 103/71 Pulse Oximetry 97 98 97 Oxygen Delivery Me thod Room Air Room Air Room Air Oxygen Flow Rate 03/23/22 16:00 03/24/22 00:00 03/24/22 03:15 Temperature 97.8 F 97.1 F L 96.9 F L Pulse Rate Pulse Rate [Left P ulse Oximeter] 76 84 73 Respiratory Rate 18 20 20 Blood Pressure Blood Pressure [Al ght Arm] 102/73 140/71 H 129/70 Pulse Oximetry 97 100 97 Oxygen Delivery Me thod Room Air Room Air Room Air Oxygen Flow Rate 03/24/22 08:45 Temperature 96.8 F L Pulse Rate Pulse Rate [Left P ulse Oximeter] 80 Respiratory Rate 16 Blood Pressure [facility] 107/82 Pulse Oximetry 100 Oxygen Delivery Me thod Room Air Oxygen Flow Rate DS: Data Data Completed and Pending Labs on day of discharge: Labs from last 24 hours 03/24/22 03/24/22 05:49 05:49 WBC 12.37 H RBC 4.05 Hgb 13.0 Hct 40.2 MCV 99 MCH 32 MCHC 32 Plt Count 310 Sodium 137 Potassium 4.1 BUN 15 Creatinine 0.6 Estimated Creat Clear 32.17 Estimated GFR 89 Discharge Plan Discharge Disposition: Home, Self-Care Discharging Surgeon: Kristofer Ventura Follow-Up Appointment: 1 week PO with TERRANCE Prescriptions: New acetaminophen 500 mg capsule 500 - 1,000 mg PO Q6H MDD 4000mg PRNQty: 100 0RF oxycodone 5 mg tablet 2.5 - 5 mg PO Q4-6H MDD 6 PRN (Reason: pain) Qty: 30 0RF Rx Instructions: Take as needed for postop pain: 2.5mg mild pain, 5mg moderate-severe pain; wean as tolerated. senna 8.6 mg capsule 8.6 mg PO BID PRN (Reason: constipation) Qty: 100 0RF Rx Instructions: 1-4 capsules twice daily as needed Continued amlodipine 5 mg tablet 5 mg PO DAILY Qty: 90 3RF celecoxib [Celebrex] 200 mg capsule 200 mg PO QDAY Qty: 90 3RF Activity Level: Activity as Tolerated Activity Detail: No left upper extremity weight-bearing, or lifting; wear sling at all times except for elbow range of motion. Wound: ?Do not remove original dressing; we will remove this at first postop visit in 1 week. Only remove dressing if integrity is in question. ?No immersing wound in water; showering okay; light scrub with your hand and body soap, rinse, dab dry ?Sutures are under the skin, will dissolve; allow surgical glue to come off naturally; do not scrub the wound or apply ointments/lotions ?Call our office with any redness that streaks, excessive drainage from the wound, or wound gapping. Ice/Elevate: ?Ice as needed for swelling and discomfort (cryocuff or ice pack); elevate frequently above the heart DAVID socks: ?Wear for 1 month, remove for 1 hour 3 times per day ?These are frustrating to take on/off, but are important for blood clot prevention for 1 month after surgery Blood Clot Prevention (DVT): David socks Driving: ?Do not drive while taking narcotic pain medication ?No elective dental work for 6 months post-op. If there is an urgent/emergent dental need, contact our office for an antibiotic prescription. Smoking/Alcohol: ?Do not smoke; do no drink alcohol especially when taking postoperative oral narcotic medication Seek Care from you Primary Care Provider if you experience the following issues in the postoperative phase and beyond: ?Bacterial infections such as: pneumonia, bacterial skin infection (cellulitis), UTI, high fever, chills unrelated to the operative body part - call your primary care physician urgently for treatment in hopes to protect your health and the metal implant. Referrals: ?PT, OT per patient preference - evaluate/treat total left reverse total shoulder arthroplasty protocol (ROM, ADLs) Follow up: ?Ortho surgeon follow-up in 6 weeks; repeat radiographs 3 views left shoulder ?PA-C visit in 1 week *If there are any acute concerns regarding your surgery, please call our orthopedic clinic ([phone]) Discharge Diet: Regular Patient Instructions: Acetaminophen (By mouth), Oxycodone, Rapid Release (By mouth), Senna (By mouth), Surgical Site Infections (DC), Joint Replacement Surgery (DC) Forms: Work/Release Restrictions Follow-up: [facility] [Other] - 04/07/22 11:00 am Piero Vega MD [Primary Care Provider] - Roberth Barry PA-C [Physician Knife Machine Operator] - 03/31/22 8:50 am Discharge Orders: Discharge Order (Routine); Ordered 03/24/22 Ordered By: Júnior Sears
--- NOTE | 2022-03-24 10:35 | PC.SOCIAL ---
Checked in with Pt about discharging to home. Pt stated that she is feeling well and ready to go home. Pt stated that she has everything she needs at home. Pt states that she lives with her and he is very helpful and will make sure she is taken care of. Pt states that there are two stories but she will be able to stay in one area and be fine. Pt requested the phone number to the Social Work Department at [facility]. This worker provided her with the phone number.
--- NOTE | 2022-03-24 13:41 | PC.NURSE ---
Discharge-- Very pleasant and cooperative patient discharged to home with via wheelchair at approximately 1130. VSS and pt is afebrile. SPO2 maintained >90% on RA. Pain appeared well managed with scheduled Tylenol only. Dressing to left shoulder is C/D/I. Fingers remain somewhat numb on left hand r/t block, CMS otherwise WNL. LS CTA though mildly diminished in bases. She denied nausea and tolerated a regular diet without difficulty. Pt has had no post op BM yet, but is passing flatus. Discharge education was provided including diagnosis info, symptoms to report, medications and follow up plan. All questions answered. SL was removed with tip intact.
== END 2022-03-24 11:30 | disposition home or self-care (01) ==
LOC: OR 10:52 → MEDSURG 10:53
PROVIDERS: PCP Family Medicine; Visit Provider Orthopaedic Surgery Sports Medicine
PROC: 0RRJ0JZ Replacement of Right Shoulder Joint with Synthetic Substitute, Open Approach (ICD-10-PCS; CPT 23472; principal; 2022-03-23 10:45)
DX: M75.102 Unspecified rotator cuff tear or rupture of left shoulder, not specified as traumatic (principal); M75.22 Bicipital tendinitis, left shoulder; I10 Essential (primary) hypertension
CPT/HCPCS: 23472; 23430; 01638; 36415; 64415; 73030; 76942; 82565; 84132; 84295; 84520; 85027; 97110; 97116; 97161; 97165; 99100; A9270; C1713; C1776; J0330; J0690; J1100; J2250; J2370; J2405; J2704; J2795; J3010; J7120; L3670

== ENCOUNTER 2022-08-02 10:45 | Outpatient (RCR) | payer MEDICARE, BC, SELFPAY ==
--- NOTE | 2022-04-25 15:26 | PT.OPEX ---
PT [facility] Outpatient Eval PT [facility] Outpatient Eval Start: 04/25/22 12:48 Freq: Status: Active Protocol: Document 04/25/22 12:48 JUAN (Rec: 04/25/22 12:49 AVIGurvinder [id number]) E-signed By Celio Burdick DPT, MS Physical Therapy Outpatient Evaluation Insurance Information Recert Due Date 07/24/22 Insurance Name Medicare B,Blue Cross/Blue Shield Medical Diagnosis Left reverse total shoulder arthroplasty Treating Diagnosis L shoulder and biceps pain, decreased L shoulder PROM and AROM, and L UE weakness Subjective Subjective Pt presents to PT following L reverse total shoulder arthroplasty on 03/23/22. Pain levels have improved over the past week with high levels of pain the first 1.5 weeks post- op. Burning sensation in L biceps chief complaint. Injured shoulder falling on ice last winter with a successful R reverse TSA in October. Pt hopes to return to cooking and baking without pain. Denies significant PMH. AGGR factors: All activities with L UE, sleeping. ALLEV factors: rest , ice. Pain Comments -04/09 Current Work Status Retired Precautions Therapy Limitations/Systems Review Not Limited Objective Functional Test Performed & Score Quick DASH 72% Assessment Assessment/Impression Pt is doing well 4 weeks post- op with minimal pain and good precaution compliance. She responded very well to MT, pulleys, passive ROM and all exercises. Reviewed importance of avoiding shoulder IR, AROM and continued sling usage until 6 weeks post-op follow up. She will benefit from continued skilled therapy to address these limitations. Primary Functional Limitations All activities with L UE, sleeping Plan of Care Rehabilitation Potential Excellent Physical Therapy Goals Short-term goals to be completed in 4 weeks: 1. Pt will display improved L shoulder flex passive ROM >155 deg to progress to AROM stages of rehab. 2. Pt will report improved quality of sleep waking <2x per night due to L shoulder pain. Long-term goals to be completed in 12 weeks: 1. Pt will be independent and compliant with HEP 2. Pt will display improved L shoulder flex AROM >150 deg to perform lifting and dressing activities. 3. Pt will display improved L shoulder flex, ABD, ER, IR, low and mid trap strength of > 4/5 each to lift objects into overhead cabinets and cooking duties. 4. Pt will report >75% improvement in quick DASH questionnaire to significantly improve colt to daily activities. Coordination/Communication With Referral Source Treatment Plan/Direct Interventions Joint Mobilization,Manual Therapy,Therapeutic Exercises Frequency/Duration 1-2x per week for at least 8- 12 visits, decreasing visit frequency as able. Patient Will Be Discharged From Therapy Completion of LTG(s),Skills Plateau,Independent w/HEP, Independently Progressing Evaluation Billing Untimed Code Treatment Minutes 22 Complexity Moderate Certification Information Initial Certification Date 04/25/22 Ending Certification Date 07/24/22 Provider Signature Shows Agreement With POC & Medical Necessity Physician Comment/Change Comment or Changes Physician NPI Number #
--- NOTE | 2022-08-02 12:21 | PT.OPDNX ---
PT [place] Outpatient Daily Note PT [facility] Outpatient Daily Note Start: 04/25/22 12:48 Freq: Status: Active Protocol: Document 08/02/22 11:59 JUAN (Rec: 08/02/22 12:20 JUAN [id number]) E-signed By JANUARY SmallT, MS PT OP Daily Progress Note Visit Information Note Type Recert/Progress Note Visit Number [id number] Insurance Authorized Visits - Physician Authorized Visits Open order Insurance Information Recert Due Date 10/22/22 Insurance Name Medicare B,Blue Cross/Blue Shield Medical Diagnosis Left reverse total shoulder arthroplasty Treating Diagnosis L shoulder and biceps pain, decreased L shoulder PROM and AROM, and L UE weakness Subjective Subjective Pt reports her shoulder continues to feel better every few days being able to do more daily activities with no pain. Lifting above shoulder height remains difficult due to weakness, but knows this will take time. Able to do her hair by herself over the past 2 weeks. HEP going very well. Pain Comments 0-1/10 Objective Other/Pertinent Objective L UE PROM Flex: 160 deg ABD: 150 deg ER: 85 deg IR: 55 deg L shoulder AROM seated Flex 95 deg ABD: 80 deg ER: 85 deg IR: 55 deg Strength L UE Flex: 3-/5 ABD: 3-/5 Biceps: 4+/5 ER: 3+/5 IR: 4-/5 Patient Instructed in Risks/Benefits Yes Therapeutic Exercise Therapeutic Exercise Minutes (minutes) 28 Therapeutic Exercise: To Restore Biceps curl progressed 4# 10 x Functional Status 3 with fatigue Kwesi flex and scaption passive ROM correcting to perform slowly Supine chest press progressed AROM 6 x 3 Shoulder flex AAROM in supine clasped hands 90% on L with fatigue Progressed to shoulder flex I 5 x 3 Rows progressed BTB 14 x 3 Table shoulder alphabet x 3 Progressed to supine shoulder [place] AROM UBE fwd/bwd x 3 min for warmup Progressed to B shoulder ER RTB 8 x 3 Treatment Minutes Timed Code Treatment Minutes 28 Total Treatment Time 28 Billing Units Therapeutic Exercise Units 2 Assessment/Impression Assessment/Impression Pt continues to progress well overall in PT with continued R UE weakness and tightness limiting her ability to perform activities above shoulder height. Months of limited use of L shoulder AROM and use has led to slower than typical return for strength and AROM. She is making slow but steady progress towards her PT goals with excellent HEP compliance. She will attempt I sx management over the next 2-3 weeks, returning prn. Her chart will remain open for 60 days due to chronic nature of sxs. Plan of Care Physical Therapy Goals Short-term goals to be completed in 4 weeks: 1. Pt will display improved L shoulder flex passive ROM >155 deg to progress to AROM stages of rehab. MET. 2. Pt will report improved quality of sleep waking <2x per night due to L shoulder pain. MET Long-term goals to be completed in 12 weeks: 1. Pt will be independent and compliant with HEP. MET 2. Pt will display improved L shoulder flex AROM >150 deg to perform lifting and dressing activities. Progressing 3. Pt will display improved L shoulder flex, ABD, ER, IR, low and mid trap strength of > 4/5 each to lift objects into overhead cabinets and cooking duties. Progressed. 4. Pt will report >75% improvement in quick DASH questionnaire to significantly improve colt to daily activities. Progressing. Daily Plan of Care Change POC; See Comments Daily Plan of Care Comments See assessment Recertification Information Initial Certification Date 04/25/22 Recertification Start Date 07/24/22 Recertification Due Date 10/22/22 Reasons to Continue Skilled Therapy See assessment. Pt continues to display limited L shoulder AROM, weakness and decreased ability to perform daily activities. Rehabilitation Potential Good due to chronic nature of sxs. Continued Plan of Care and Interventions Continue 1x every 2-3 weeks with therapeutic exercise, manual therapy, and NM re-ed, transitioning to I sx management with her HEP, as able. Provider Signature Shows Agreement With POC & Medical Necessity Physician Comment/Change Comment or Changes Physician NPI Number #
== END 2023-02-16 23:59 | disposition home or self-care (01) ==
PROVIDERS: PCP Family Medicine; Visit Provider Orthopaedic Surgery Sports Medicine
DX: Z96.612 Presence of left artificial shoulder joint (principal); Z51.89 Encounter for other specified aftercare
CPT/HCPCS: 97110; 97140; 97162

== ENCOUNTER 2023-03-06 08:57 | Outpatient (CLI) | payer MEDICARE, BC, SELFPAY | END 2023-03-06 08:58 | disposition home or self-care (01) | PROVIDERS: PCP Family Medicine; Visit Provider Family Medicine | DX: I10 Essential (primary) hypertension (principal) | CPT/HCPCS: 80048 ==

== ENCOUNTER 2023-08-12 10:45 | Outpatient (CLI) | payer MEDICARE, BC, SELFPAY | END 2023-08-12 10:46 | disposition home or self-care (01) | LOC: NFLDREF 08-17 20:15 | PROVIDERS: PCP Family Medicine; Referring Provider Family Medicine; Visit Provider Nurse Practitioner Family | DX: R39.9 Unspecified symptoms and signs involving the genitourinary system (principal) | CPT/HCPCS: 87086; 87186 ==

== ENCOUNTER 2024-03-03 08:04 | Inpatient (IN) | payer MEDICARE, BC, SELFPAY ==
[2024-03-03] VITALS (28 sets, daily range): BP systolic 111–154; BP diastolic 58–84; PULSE 72–90; RESP 12–40; TEMP 36.8–38.4; O2SAT 88–97; BMI 25.9
--- NOTE | 2024-03-03 08:30 | ED.GENADULT ---
HPI - General Adult General Chief complaint: Chest Pain Stated complaint: Whole left side of body pain Time Seen by Provider: 03/03/24 08:09 Source: patient Mode of arrival: ambulatory Limitations: no limitations History of Present Illness HPI narrative: 83-year-old female coming in today complaining of back pain that radiates from her left shoulder all the way to her left hip that started approximately 4-1/2 hours ago. Patient states that this has happened to her in the past however a heating pad generally resolved the issue. This time the pain is constant and is not letting up. It causes her to feel short of breath as she cannot take a deep breath. Patient denies fevers or chills. She denies trauma, tripping or falling. She denies coughing. Nothing seems to make the pain better, deep breathing or movement makes it worse. 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) ?Z96.619 - Presence of unspecified artificial shoulder joint (ICD-10) Status post reverse arthroplasty of left shoulder (03/23/22) ?Z96.612 - Presence of left artificial shoulder joint (ICD-10) History of arthroplasty of left shoulder ?Z96.612 - Presence of left artificial shoulder joint (ICD-10) S/P cataract extraction ?Z98.49 - Cataract extraction status, unspecified eye (ICD-10) History of right inguinal hernia repair (12/01/09) ?Z98.890 - Other specified postprocedural states (ICD-10) ?Z87.19 - Personal history of other diseases of the digestive system (ICD-10) Family History Father Colon cancer Mother Heart problem Social History Narrative: -Leonel What is your current living situation?: I presently have a place to live Problems where you live: no known problems In the past 12 months, utilities in danger of being shut off: no In past 12 months, lack of transportation kept you from medical appts, meetings, work, or getting things needed for daily living: no In the past 12 mos, have been you worried that your food would run out before you had money to buy more?: never true In the past 12 mos, the food you bought just didn't last and you didn't have money to buy more?: never true Highest level of school completed/degree received: GED or equivalent Smoking Status: Never smoker Do you use any of these nicotine containing products: None Second hand tobacco smoke exposure: No How often do you have a drink containing alcohol: 2-4 times a month Alcohol type: hard liquor How many standard drinks containing alcohol do you have on a typical day: 1 or 2 How often do you have six or more drinks on one occasion: Never AUDIT-C Alcohol total score: 2 Non-prescribed substance use: denies use Caffeine: Yes (coffee, 1 cup/am) Are you now , , , , never or living with a partner: Social isolation score (0-1 are the most socially isolated patients): 1 How often does anyone, including family, friends and others, physically hurt you: never How often does anyone, including family, friends and others, insult or talk down to you: never How often does anyone, including family, friends and others, threaten you with harm: never How often does anyone, including family, friends and others, scream or curse at you: never Little interest or pleasure in doing things: more than half the days Feeling down, depressed, or hopeless: not at all service: No Exam Narrative: Exam Narrative: Well-nourished well-developed elderly patient in a moderate distress. Alert and oriented. Answers questions appropriately. Patient is tachypneic and hyperventilating-taking very fast short breaths. Her oxygen saturation is ranging from 88-92%. Patient is sitting in the bed, back is elevated. When I ask her if she lean forward so I can listen to her back she refuses stating that she can not move. HEENT: Normocephalic atraumatic. Pupils are equally round reactive to light. Extraocular muscles are intact. Conjunctivae are moist without any icterus noted. Moist mucous membranes. Cardiovascular: Heart is regular rate and rhythm S1 and S2 are present without any murmurs. Lungs: Clear to auscultation bilaterally no wheezes rhonchi or rales are appreciated. Patient cannot/will not take deep breaths. Abdomen: Soft and nontender nondistended with normal bowel sounds. Abdomen is slightly distended. I can palpate the left inguinal hernia, it is not tender to palpation. Extremities: Bilateral lower extremities are without edema. Normal DP and PT pulses. Skin: Well perfused. Const: Vital Signs, click to edit/add: Vital Signs - 24 hr 03/03/24 08:19 03/03/24 08:20 03/03/24 08:25 Temperature 98.3 F Pulse Rate Pulse Rate [Pulse Oximeter] 74 Respiratory Rate 40 H Blood Pressure Blood Pressure [Ri ght Upper Arm] 151/75 H Pulse Oximetry 89 89 94 Oxygen Delivery Me thod Room Air Nasal Cannula Oxygen Flow Rate 2 03/03/24 08:25 03/03/24 08:30 03/03/24 08:32 Temperature Pulse Rate 76 77 76 Pulse Rate [Pulse Oximeter] Respiratory Rate 38 H Blood Pressure 148/81 H Blood Pressure [Ri ght Upper Arm] Pulse Oximetry 96 97 97 Oxygen Delivery Me thod Oxygen Flow Rate 03/03/24 08:45 03/03/24 08:48 03/03/24 09:00 Temperature Pulse Rate 77 81 79 Pulse Rate [Pulse Oximeter] Respiratory Rate Blood Pressure 111/69 Blood Pressure [Ri ght Upper Arm] Pulse Oximetry 96 95 93 Oxygen Delivery Me thod Oxygen Flow Rate 03/03/24 09:03 03/03/24 09:15 03/03/24 09:17 Temperature Pulse Rate 80 80 80 Pulse Rate [Pulse Oximeter] Respiratory Rate 32 H Blood Pressure 141/73 H 140/84 H Blood Pressure [Ri ght Upper Arm] Pulse Oximetry 92 92 92 Oxygen Delivery Me thod Oxygen Flow Rate Course Course ED Course: IV was established and patient is given a dose of IV morphine. This helps the pain for short amount of time but the pain does come back. CBC shows a slightly elevated white cell count at 13.8, normal hemoglobin and platelet count. She does have 83.7% neutrophils. Her D-dimer is elevated at 1.6. Chemistries are unremarkable. LFTs unremarkable. Normal troponin. CRP is elevated at 4.2. Urine is orange in color with 2+ bilirubin which is not new for this patient. Patient given Toradol at this time, this seemed to help her pain quite a bit. Chest CT, PE protocol was done which did not show evidence of PE. Did show a left-sided pleural effusion with atelectasis favored over pneumonia. Abdominal CT done without contrast to look for renal stones, showed left-sided inguinal hernia containing colon. Discussed results of the abdominal CT scan with Dr. Mac, who recommends admission re-examination and potential surgery for inguinal hernia containing colon. Other things to consider would be a potential pneumonia causing her back pain. Vital Signs Vital signs: Initial Vital Signs Temperature 98.3 F 03/03/24 08:19 Temperature Source Temporal Artery Scan 03/03/24 08:19 Pulse Rate 74 03/03/24 08:19 Respiratory Rate 40 H 03/03/24 08:19 Blood Pressure 151/75 H 03/03/24 08:19 Blood Pressure Mean 100 03/03/24 08:19 Blood Pressure Position High-Fowlers 03/03/24 08:19 Pulse Oximetry 89 03/03/24 08:19 Oxygen Delivery Method Room Air 03/03/24 08:19 Vital Signs Temperature 98.3 F 03/03/24 08:19 Pulse Rate 74 03/03/24 08:19 Respiratory Rate 40 H 03/03/24 08:19 Blood Pressure 151/75 H 03/03/24 08:19 Pulse Oximetry 89 03/03/24 08:19 Oxygen Delivery Method Room Air 03/03/24 08:19 Temperature 98.3 F 03/03/24 08:19 Pulse Rate 80 03/03/24 09:17 Respiratory Rate 32 H 03/03/24 09:15 Blood Pressure 140/84 H 03/03/24 09:17 Pulse Oximetry 92 03/03/24 09:17 Oxygen Delivery Method Nasal Cannula 03/03/24 08:25 Oxygen Flow Rate 2 03/03/24 08:25 Medications Administered Medications: Discontinued Medications Generic Name Dose Route Start Last Admin Trade Name Antoinette PRN Reason Stop Dose Admin Ketorolac Tromethamine 15 mg 03/03/24 09:22 03/03/24 09:24 Ketorolac 15 Mg/Ml Inj IVP 03/03/24 09:23 15 mg ONCE ONE Administration Morphine Sulfate 2 mg 03/03/24 08:23 03/03/24 08:40 Morphine 2 Mg/Ml Inj IVP 03/03/24 08:24 2 mg ONCE ONE Administration Medical Decision Making MDM Narrative Medical decision making narrative: 83-year-old female presenting with back pain, finding of inguinal hernia containing colon. Patient will be admitted for further management and surgical consultation. Again, will consider possible pneumonia as cause of patient's symptoms. Lab Data Lab results reviewed: Yes I reviewed the patient's lab results Labs: Lab Results 03/03/24 03/03/24 03/03/24 Range/Units 08:25 08:30 09:35 WBC 13.84 H (4.50-11.00) K/uL RBC 4.42 (4.00-5.20) m/uL Hgb 14.0 (12.0-16.0) gm/dL Hct 44.9 (33.0-51.0) % MCV 102 H (80-100) fL MCH 32 (26-34) pg MCHC 31 L (32-36) gm/dL RDW Coeff of Reuben 14.2 (11.5-15.5) % Plt Count 325 (140-440) K/uL Neut % (Auto) 83.7 H (42.0-72.0) % Lymph % (Auto) 10.0 L (20-44) % [place] % (Auto) 5.4 (0.0-11.0) % Eos % (Auto) 0.1 (0.0-7.0) % Baso % (Auto) 0.1 (0.0-3.0) % Neut # (Auto) 11.60 H (1.7-7.0) K/uL Lymph # (Auto) 1.40 (0.90-2.90) K/uL [place] # (Auto) 0.70 (0.00-0.90) K/UL Eos # (Auto) 0.00 (0.00-0.50) K/uL Baso # (Auto) 0.00 (0.00-0.30) K/uL Abs Immat Gran (auto) 0.10 (0.00-0.30) K/uL Imm/Tot Granulo (auto) 0.7 % ESR 40 H (2-20) mm/hr D-Dimer Quant (PE/DVT) 1.63 H (0.00-0.50) ug/ml Sodium 140 (135-149) mmol/L Potassium 4.1 (3.6-5.1) mmol/L Chloride 107 (96-114) mmol/L Carbon Dioxide 24 (20-32) mmol/L Anion Gap 9 (7-15) mEq/L BUN 15 (7-30) mg/dL Creatinine 0.6 (0.5-1.5) mg/dL Estimated GFR 88 ml/min Glucose 134 H (60-115) mg/dL Lactate 1.6 (0.5-1.9) mmol/L Calcium 9.2 (8.4-10.6) mg/dL Total Bilirubin 0.7 (0.1-1.5) mg/dL Direct Bilirubin 0.4 (0.0-0.5) mg/dL AST 21 (12-35) U/L ALT 12 (4-35) U/L Alkaline Phosphatase 101 (40-150) U/L Troponin I < 0.01 L (0.01-0.04) ng/mL C-Reactive Protein 4.2 H (0.5-1.0) mg/dL NT-Pro-B Natriuret Pep 342 pg/mL Total Protein 7.5 (6.0-8.3) g/dL Albumin 4.2 (3.3-5.0) g/dL Urine Color [place] A (Yellow) Urine Appearance Slightly Cloudy A (Clear) Urine pH 7.5 (5.0-8.5) Ur Specific [place] 1.015 (1.000-1.030) Urine Protein Trace A (Negative) Urine Glucose (UA) Negative (Negative) Urine Ketones Negative (Negative) Urine Blood Negative (Negative) Urine Nitrite Negative (Negative) Urine Bilirubin 2+ A (Negative) Urine Urobilinogen 4.0 A (0.2-1.0) Ur Leukocyte Esterase Negative (Negative) Urine RBC 0-2 (0-2) Urine WBC 0-2 (0-5) Ur Squamous Epith Cells Few (None-Few) Urine Bacteria Few A (None) SARS-CoV-2 (PCR) Negative SARS-CoV-2 (Negative) Influenza Type A (PCR) Negative PCR FLU A (Negative) Influenza Type B (PCR) Negative PCR FLU B (Negative) RSV (PCR) Negative PCR RSV (Negative) POC Troponin I 0.01 (0.01-0.04) ng/ml Imaging Data CT scan - chest: Attestation: I have reviewed the pertinent imaging results. Radiologist's impression: CT chest PE was acquired with 95 cc Isovue 370 IV contrast. COMPARISON: None. FINDINGS: Heart and vasculature: Contrast opacification of the pulmonary arterial tree is adequate. No sign of pulmonary embolism. Heart size is normal. Thoracic aorta and pulmonary artery are normal in caliber. Lungs and pleura: Small left basilar pleural effusion with adjacent atelectasis favored over infiltrate. Small consolidation in the lingula could represent chronic scarring favored over pneumonia. Small areas of scarring also present in the right lung. No suspicious nodules. There are calcified granulomas. No pneumothorax. Lymph nodes/mediastinum: No mediastinal, hilar, or axillary adenopathy. Chest wall: No masses. Upper abdomen: No acute or significant findings. Bones: Unremarkable for age. IMPRESSION: 1. No pulmonary embolism. 2. Small left basilar pleural effusion with adjacent atelectasis favored over infiltrate. Scattered areas of scarring in both lungs. 3. No other acute or specific findings to explain shortness of breath. CT scan - abdomen: Attestation: I have reviewed the pertinent imaging results. Radiologist's impression: TECHNIQUE: CT abdomen and pelvis without contrast. COMPARISON: None. FINDINGS: Lower chest: Lingular and left lower lobe atelectasis and consolidation. Small left effusion. Right basilar atelectasis. Liver: Too small low-attenuation lesion left hepatic lobe.. To characterize Gallbladder and bile ducts: No stones or inflammation. No biliary dilatation. Pancreas: Unremarkable. No mass or inflammation. Spleen: Normal in size. No masses. Adrenal glands: Normal in size. No nodules. Kidneys: No renal calculi. No hydronephrosis. 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 GI tract: Diverticulosis. Vasculature: Abdominal aorta is normal in caliber. Lymph nodes: No lymphadenopathy. Peritoneum/Abdominal Wall: Left inguinal hernia containing colon. There is fat stranding within the inguinal hernia sac. Mild diverticulitis not excluded. Bowel is otherwise unremarkable. Normal appendix. There is no obstruction visualized. Pelvis: Unremarkable. No pelvic masses. Bones: Unremarkable for age. IMPRESSION: 1. No renal calculi or hydronephrosis. 2. Diverticulosis. Small left inguinal hernia containing colon. There is fat stranding within the hernia sac. Mild diverticulitis not excluded. There is no bowel obstruction seen. Discharge Plan Discharge Clinical Impression: Incarcerated inguinal hernia, Back pain Patient Disposition: Admitted As Observation Condition: Stable Prescriptions: No Action amlodipine 5 mg tablet 5 mg PO DAILY Qty: 90 3RF tramadol 50 mg tablet 50 mg PO Q6H PRN (Reason: pain) Qty: 30 1RF celecoxib [Celebrex] 200 mg capsule 200 mg PO QDAY Qty: 90 3RF Follow Up/Referrals: Piero Vega MD [Primary Care Provider] -
[2024-03-03 08:38] LABS: Lactate* 1.6 mmol/L (0.5-1.9)
[2024-03-03] MEDS: MORPHINE 2 MG/ML inj IVP ×2 (08:40→20:18)
[2024-03-03 08:46] LABS: Troponin, Point-of-Care* 0.01 ng/ml (0.01-0.04)
[2024-03-03 08:50] LABS: Basophils Percent Auto 0.1 % (0.0-3.0); Eosinophils Percent Auto 0.1 % (0.0-7.0); Hematocrit 44.9 % (33.0-51.0); Immature Granulocytes Pct Auto 0.7 %; Mean Corpuscular HGB Conc 31 gm/dL (32-36); Mean Corpuscular Hemoglobin 32 pg (26-34); Mean Corpuscular Volume 102 fL (80-100); Monocytes Percent Auto 5.4 % (0.0-11.0); Neutrophils Percent Auto 83.7 % (42.0-72.0); Platelet Count* 325 K/uL (140-440); RDW Coefficient of Variation % 14.2 % (11.5-15.5); Red Blood Count 4.42 m/uL (4.00-5.20); Slide Review Reflex No; White Blood Count* 13.84 K/uL (4.50-11.00)
[2024-03-03 08:56] LABS: Albumin* 4.2 g/dL (3.3-5.0); Chloride* 107 mmol/L (96-114)
[2024-03-03 08:57] LABS: Potassium* 4.1 mmol/L (3.6-5.1); Sodium* 140 mmol/L (135-149)
[2024-03-03 08:59] LABS: Anion Gap 9 mEq/L (7-15); Aspartate Amino Transferase* 21 U/L (12-35); Bilirubin Direct* 0.4 mg/dL (0.0-0.5); Bilirubin Total* 0.7 mg/dL (0.1-1.5); Carbon Dioxide* 24 mmol/L (20-32); Creatinine* 0.6 mg/dL (0.5-1.5); D Dimer Quantitative* 1.63 ug/ml (0.00-0.50); Estimated Glomerular Filt Rate 88 ml/min
[2024-03-03 09:00] LABS: Alanine Aminotransferase* 12 U/L (4-35); Alkaline Phosphatase* 101 U/L (40-150); Blood Urea Nitrogen* 15 mg/dL (7-30); Calcium* 9.2 mg/dL (8.4-10.6); Glucose* 134 mg/dL (60-115); Total Protein* 7.5 g/dL (6.0-8.3)
[2024-03-03 09:03] LABS: C Reactive Protein* 4.2 mg/dL (0.5-1.0)
--- NOTE | 2024-03-03 09:09 | CRLHL7_ITS ---
For Patients: As a result of the Century Cures Act, medical imaging exams and procedure reports are released immediately into your electronic medical record. You may view this report before your referring provider. If you have questions, please contact your health care provider. INDICATION: Left flank pain TECHNIQUE: CT abdomen and pelvis without contrast. COMPARISON: None. FINDINGS: Lower chest: Lingular and left lower lobe atelectasis and consolidation. Small left effusion. Right basilar atelectasis. Liver: Too small low-attenuation lesion left hepatic lobe.. To characterize Gallbladder and bile ducts: No stones or inflammation. No biliary dilatation. Pancreas: Unremarkable. No mass or inflammation. Spleen: Normal in size. No masses. Adrenal glands: Normal in size. No nodules. Kidneys: No renal calculi. No hydronephrosis. 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 GI tract: Diverticulosis. Vasculature: Abdominal aorta is normal in caliber. Lymph nodes: No lymphadenopathy. Peritoneum/Abdominal Wall: Left inguinal hernia containing colon. There is fat stranding within the inguinal hernia sac. Mild diverticulitis not excluded. Bowel is otherwise unremarkable. Normal appendix. There is no obstruction visualized. Pelvis: Unremarkable. No pelvic masses. Bones: Unremarkable for age. IMPRESSION: 1. No renal calculi or hydronephrosis. 2. Diverticulosis. Small left inguinal hernia containing colon. There is fat stranding within the hernia sac. Mild diverticulitis not excluded. There is no bowel obstruction seen. Please note that all CT scans at this facility use dose modulation, iterative reconstruction, and/or weight-based dosing when appropriate to reduce radiation dose to as low as reasonably achievable. Dictated by Rossy Fish MD @ 03/03/2024 10:19:26 AM (Electronically Signed)
--- NOTE | 2024-03-03 09:09 | CRLHL7_ITS ---
For Patients: As a result of the Century Cures Act, medical imaging exams and procedure reports are released immediately into your electronic medical record. You may view this report before your referring provider. If you have questions, please contact your health care provider. INDICATION: Shortness of breath. Elevated D-dimer. TECHNIQUE: CT chest PE was acquired with 95 cc Isovue 370 IV contrast. COMPARISON: None. FINDINGS: Heart and vasculature: Contrast opacification of the pulmonary arterial tree is adequate. No sign of pulmonary embolism. Heart size is normal. Thoracic aorta and pulmonary artery are normal in caliber. Lungs and pleura: Small left basilar pleural effusion with adjacent atelectasis favored over infiltrate. Small consolidation in the lingula could represent chronic scarring favored over pneumonia. Small areas of scarring also present in the right lung. No suspicious nodules. There are calcified granulomas. No pneumothorax. Lymph nodes/mediastinum: No mediastinal, hilar, or axillary adenopathy. Chest wall: No masses. Upper abdomen: No acute or significant findings. Bones: Unremarkable for age. IMPRESSION: 1. No pulmonary embolism. 2. Small left basilar pleural effusion with adjacent atelectasis favored over infiltrate. Scattered areas of scarring in both lungs. 3. No other acute or specific findings to explain shortness of breath. Please note that all CT scans at this facility use dose modulation, iterative reconstruction, and/or weight-based dosing when appropriate to reduce radiation dose to as low as reasonably achievable. Dictated by Abner Cowan MD @ 03/03/2024 10:15:41 AM (Electronically Signed)
[2024-03-03 09:14] LABS: NT Pro B Type NatriureticPept* 342 pg/mL; Troponin I* < 0.01 ng/mL (0.01-0.04)
[2024-03-03] MEDS: KETOROLAC 15 MG/ML inj IVP (09:24)
[2024-03-03 09:28] LABS: Erythrocyte SedimentationRate* 40 mm/hr (2-20)
[2024-03-03 09:44] LABS: Appearance Urine Slightly Cloudy (Clear); Bilirubin Urine 2+ (Negative); Blood Urine Negative (Negative); Color Urine Orange (Yellow); Glucose Urine Negative (Negative); Ketones Urine Negative (Negative); Leukocyte Esterase Urine Negative (Negative); Nitrite Urine Negative (Negative); Protein Urine Trace (Negative); Specific Gravity Urine 1.015 (1.000-1.030); pH Urine 7.5 (5.0-8.5)
[2024-03-03 09:44] LABS: PCR FLU A Negative PCR FLU A (Negative); PCR FLU B Negative PCR FLU B (Negative); PCR RSV Negative PCR RSV (Negative); SARS PCR* Negative SARS-CoV-2 (Negative)
[2024-03-03 09:56] LABS: Bacteria Urine Few; RBC Urine 0-2 (0-2); Squamous Epithelial Cell Urine Few (None-Few); WBC Urine 0-2 (0-5)
[2024-03-03 11:42] LABS: HCO3 VBG 28 mmol/L (21-28); PCO2 VBG 46 mmHG (40-50); PO2 VBG 31.2 mmHG (25-47); pH VBG 7.387 (7.32-7.43)
--- NOTE | 2024-03-03 12:02 | P.GSCN_ITS ---
History of Present Illness Consult details Date Seen: 03/03/24 Consult date: 03/03/24 Narrative: Patient is an 83-year-old female who presented to the emergency department today with left-sided back pain. She states that last night she was awoke in with pain which radiated from her buttocks to her left shoulder blade. This was all posteriorly. She had similar symptoms a week ago. The occurred before she went to bed. At that time she use a heating pad which helped. Last night the heating pad did not take her pain away. This caused significant short of breath. She denies any chest pain with this. When she presented to the emergency department she was hypoxic and tachypneic with respiratory rate in the 30s and sats in the 80s. This improved with pain medication and oxygen administration. She had a CT PE protocol which did not show a PE. She has a small left pleural effusion and atelectasis on that side. CT scan stone protocol was obtained which showed no evidence of kidney stone, however she did have a bowel containing inguinal hernia with possibly fat stranding noted. Labs were significant for an elevated white blood cell count of 13 and CRP of 4. Electrolytes were normal. The patient denies nausea or vomiting. She denies abdominal pain. She states that she has had the hernia for several years. This was noticed on exam by her primary care provider. It has never been painful to her. She states that she never has had issues with this hernia ?like the other one. She is referring to her right side where she previously underwent a right inguinal hernia repair She had a bowel movement last night which she states was looser than usual. She has had colonoscopies in the past. She is not sure when her last 1 was but states she was told that she could stop because of her age. She has not had any urinary symptoms. She currently denies any pain in the abdomen or pain over her hernia. It is painful for her to take a deep breath. That pain is located in her posterior chest. 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) ?Z96.612 - Presence of left artificial shoulder joint (ICD-10) History of arthroplasty of left shoulder ?Z96.612 - Presence of left artificial shoulder joint (ICD-10) S/P cataract extraction ?Z98.49 - Cataract extraction status, unspecified eye (ICD-10) History of right inguinal hernia repair (12/01/09) ?Z98.890 - Other specified postprocedural states (ICD-10) ?Z87.19 - Personal history of other diseases of the digestive system (ICD-10) Family History Father Colon cancer Mother Heart problem Social History Narrative: -Leonel What is your current living situation?: I presently have a place to live Problems where you live: no known problems In the past 12 months, utilities in danger of being shut off: no In past 12 months, lack of transportation kept you from medical appts, meetings, work, or getting things needed for daily living: no In the past 12 mos, have been you worried that your food would run out before you had money to buy more?: never true In the past 12 mos, the food you bought just didn't last and you didn't have money to buy more?: never true Highest level of school completed/degree received: GED or equivalent Smoking Status: Never smoker Do you use any of these nicotine containing products: None Second hand tobacco smoke exposure: No How often do you have a drink containing alcohol: 2-4 times a month Alcohol type: hard liquor How many standard drinks containing alcohol do you have on a typical day: 1 or 2 How often do you have six or more drinks on one occasion: Never AUDIT-C Alcohol total score: 2 Non-prescribed substance use: denies use Caffeine: Yes (coffee, 1 cup/am) Are you now , , , , never or living with a partner: Social isolation score (0-1 are the most socially isolated patients): 1 How often does anyone, including family, friends and others, physically hurt you : never How often does anyone, including family, friends and others, insult or talk down to you: never How often does anyone, including family, friends and others, threaten you with harm: never How often does anyone, including family, friends and others, scream or curse at you: never Little interest or pleasure in doing things: more than half the days Feeling down, depressed, or hopeless: not at all service: No Meds Home Medications and Allergies Allergies Allergy/AdvReac Type Severity Reaction Status Date / Time No Known Allergies Allergy Verified 03/03/24 08:19 Exam Narrative: Exam Narrative: General appearance: Alert, cooperative, and in no distress Eyes: PERRLA, eye lids clear, and sclera white HENT Head: Normocephalic Ears: External ears normal Pulmonary: Sats are in the low 90s on room air. Her respiratory rate is approximately 20. She has pain with deep inspiration on her left back. Cardiovascular Heart: Regular rate Extremities: warm and well perfused Gastrointestinal Abdominal: Soft. Nontender. No scars. She does have a hernia noted in her left groin. This is not reducible. This is nontender to palpation. The patient denies any discomfort despite my attempts at reduction. Neurologic: No focal deficits Psychiatric: Alert, oriented, cooperative, normal affect. Const: Vital Signs, click to edit/add: Vital Signs - 24 hr 03/03/24 08:19 03/03/24 08:20 03/03/24 08:25 Temperature 98.3 F Pulse Rate Pulse Rate [Pulse Oximeter] 74 Respiratory Rate 40 H Blood Pressure Blood Pressure [Ri ght Upper Arm] 151/75 H Pulse Oximetry 89 89 94 Oxygen Delivery Me thod Room Air Nasal Cannula Oxygen Flow Rate 2 03/03/24 08:25 03/03/24 08:30 03/03/24 08:32 Temperature Pulse Rate 76 77 76 Pulse Rate [Pulse Oximeter] Respiratory Rate 38 H Blood Pressure 148/81 H Blood Pressure [Ri ght Upper Arm] Pulse Oximetry 96 97 97 Oxygen Delivery Me thod Oxygen Flow Rate 03/03/24 08:45 03/03/24 08:48 03/03/24 09:00 Temperature Pulse Rate 77 81 79 Pulse Rate [Pulse Oximeter] Respiratory Rate Blood Pressure 111/69 Blood Pressure [Ri t Upper Arm] Pulse Oximetry 96 95 93 Oxygen Delivery Me thod Oxygen Flow Rate 03/03/24 09:03 03/03/24 09:15 03/03/24 09:17 Temperature Pulse Rate 80 80 80 Pulse Rate [Pulse Oximeter] Respiratory Rate 32 H Blood Pressure 141/73 H 140/84 H Blood Pressure [Ri ght Upper Arm] Pulse Oximetry 92 92 92 Oxygen Delivery Me thod Oxygen Flow Rate 03/03/24 09:54 03/03/24 10:02 03/03/24 10:17 Temperature Pulse Rate 90 84 82 Pulse Rate [Pulse Oximeter] Respiratory Rate 14 12 16 Blood Pressure 137/67 114/58 L 116/59 L Blood Pressure [Ri ght Upper Arm] Pulse Oximetry 95 94 91 Oxygen Delivery Me thod OxyMask Oxygen Flow Rate 2 03/03/24 10:32 03/03/24 10:47 03/03/24 11:00 Temperature Pulse Rate 80 81 76 Pulse Rate [Pulse Oximeter] Respiratory Rate 12 14 Blood Pressure 128/63 127/68 Blood Pressure [Ri ght Upper Arm] Pulse Oximetry 90 93 88 Oxygen Delivery Me thod Room Air Room Air Oxygen Flow Rate 03/03/24 11:02 03/03/24 11:17 03/03/24 11:50 Temperature 98.3 F Pulse Rate 77 76 Pulse Rate [Pulse Oximeter] 74 Respiratory Rate 14 14 14 Blood Pressure 129/68 125/64 Blood Pressure [Ri ght Upper Arm] 151/75 H Pulse Oximetry 93 94 Oxygen Delivery Me thod OxyMask Oxygen Flow Rate 1 1 Results Labs Labs: Abnormal lab results 03/03/24 03/03/24 Range/Units 08:25 09:35 WBC 13.84 H (4.50-11.00) K/uL MCV 102 H (80-100) fL MCHC 31 L (32-36) gm/dL Neut % (Auto) 83.7 H (42.0-72.0) % Lymph % (Auto) 10.0 L (20-44) % Neut # (Auto) 11.60 H (1.7-7.0) K/uL ESR 40 H (2-20) mm/hr D-Dimer Quant (PE/DVT) 1.63 H (0.00-0.50) ug/ml Glucose 134 H (60-115) mg/dL Troponin I < 0.01 L (0.01-0.04) ng/mL C-Reactive Protein 4.2 H (0.5-1.0) mg/dL Urine Color [place] A (Yellow) Urine Appearance Slightly Cloudy A (Clear) Urine Protein Trace A (Negative) Urine Bilirubin 2+ A (Negative) Urine Urobilinogen 4.0 A (0.2-1.0) Urine Bacteria Few A (None) Diabetes panel 03/03/24 Range/Units 08:25 Sodium 140 (135-149) mmol/L Potassium 4.1 (3.6-5.1) mmol/L Chloride 107 (96-114) mmol/L Carbon Dioxide 24 (20-32) mmol/L BUN 15 (7-30) mg/dL Creatinine 0.6 (0.5-1.5) mg/dL Glucose 134 H (60-115) mg/dL Calcium 9.2 (8.4-10.6) mg/dL AST 21 (12-35) U/L ALT 12 (4-35) U/L Alkaline Phosphatase 101 (40-150) U/L Total Protein 7.5 (6.0-8.3) g/dL Albumin 4.2 (3.3-5.0) g/dL Calcium panel 03/03/24 Range/Units 08:25 Calcium 9.2 (8.4-10.6) mg/dL Albumin 4.2 (3.3-5.0) g/dL Pituitary panel 03/03/24 Range/Units 08:25 Sodium 140 (135-149) mmol/L Potassium 4.1 (3.6-5.1) mmol/L Chloride 107 (96-114) mmol/L Carbon Dioxide 24 (20-32) mmol/L BUN 15 (7-30) mg/dL Creatinine 0.6 (0.5-1.5) mg/dL Glucose 134 H (60-115) mg/dL Calcium 9.2 (8.4-10.6) mg/dL Adrenal panel 03/03/24 Range/Units 08:25 Sodium 140 (135-149) mmol/L Potassium 4.1 (3.6-5.1) mmol/L Chloride 107 (96-114) mmol/L Carbon Dioxide 24 (20-32) mmol/L BUN 15 (7-30) mg/dL Creatinine 0.6 (0.5-1.5) mg/dL Glucose 134 H (60-115) mg/dL Calcium 9.2 (8.4-10.6) mg/dL Total Bilirubin 0.7 (0.1-1.5) mg/dL AST 21 (12-35) U/L ALT 12 (4-35) U/L Alkaline Phosphatase 101 (40-150) U/L Total Protein 7.5 (6.0-8.3) g/dL Albumin 4.2 (3.3-5.0) g/dL All other labs normal. Imaging CT scan - chest: report reviewed and image reviewed Additional studies: CT chest with IV contrast IMPRESSION: 1. No pulmonary embolism. 2. Small left basilar pleural effusion with adjacent atelectasis favored over infiltrate. Scattered areas of scarring in both lungs. 3. No other acute or specific findings to explain shortness of breath. Please note that all CT scans at this facility use dose modulation, iterative reconstruction, and/or weight-based dosing when appropriate to reduce radiation dose to as low as reasonably achievable. Dictated by Abner Cowan MD @ 03/03/2024 10:15:[address] abdomen/Pelvis without contrast IMPRESSION: 1. No renal calculi or hydronephrosis. 2. Diverticulosis. Small left inguinal hernia containing colon. There is fat stranding within the hernia sac. Mild diverticulitis not excluded. There is no bowel obstruction seen. Please note that all CT scans at this facility use dose modulation, iterative reconstruction, and/or weight-based dosing when appropriate to reduce radiation dose to as low as reasonably achievable. Dictated by Rossy Fish MD @ 03/03/2024 10:19:26 AM Progress Note:A&P Assessment and plan (1) Back pain: Status: Acute (2) Incarcerated inguinal hernia: Status: Acute (3) Pleural effusion, left: Status: Acute Plan The patient is an 83-year-old female who presents the ER with left-sided back pain which seems pleuritic in nature. She is also noted to have an incarcerated left inguinal hernia containing colon. There is possibly some fat stranding here which could indicate diverticulitis. She has no sign of obstruction. Clinically she is not obstructed. I discussed the situation with the patient her . I explained that normally an incarcerated inguinal hernia containing bowel in the setting of elevated white blood cell count would need to be emergently repaired, however her symptoms seem to be pulmonary in nature, and she has no pain over the hernia itself. She states that she does not feel that it has changed. She does have a small pleural effusion and atelectasis per the radiologist. Is possible that she could have pneumonia which is causing her symptoms. Again her symptoms seem more related to a pulmonary process then the hernia. I explained that if she has an incarcerated hernia and the blood supply to the intestine was cut off then this would be a surgical emergency. Usually in this setting patients will have discomfort in the area of the hernia or some other symptoms. I stated that I had discussed simply repairing her hernia to ensure that that was not the cause of her pain, however after visiting with her in seeing her discomfort with deep breathing which is localized to her left posterior chest, I think that her reason for admission was related to her lungs and also if she has pneumonia or other pulmonary process, this could be worsened by general anesthetic. At this time I would recommend broad antibiotic coverage for pneumonia. This would also cover for diverticulitis. If at any point she did were to develop pain in her groin or an obstructive picture, then I would recommend proceeding to the OR for repair of the hernia regardless of pulmonary status. However this time we will take a watchful waiting approach. The patient and her expressed understanding. I did speak with the hospitalist Dr. Shane about this.
[2024-03-03 12:59] LABS: Procalcitonin* 0.07 ng/mL (<0.50)
[2024-03-03] MEDS: predniSONE 20 MG TABLET PO (15:36)
[2024-03-03] MEDS: TRAMADOL HCL 50 MG TABLET PO ×2 (15:36→22:32)
--- NOTE | 2024-03-03 15:54 | P.IMHP_ITS ---
Hospitalist- H&P: HPI History of Present Illness Date Seen: 03/03/24 Chief complaint: Whole left side of body pain Narrative: Mariposa Dukes is a 83 year old female admitted to the hospital with severe left-sided back and flank pain. Patient developed this pain at 4:00 a.m. today. It awoke her from sleep. She reported was so painful does difficult to move. Movement of her trunk made the pain worse. Taking a deep breath also made the pain worse. She describes the location of the pain is on the left side of her back extending from her left shoulder down to her left buttock. There has not been any injury to this area. The pain is described as sharp and constant. It is now better than it was earlier today. She is not aware of any specific treatment that has helped the pain. She had a similar episode 11 days ago where she awoke from sleep in the morning with the same location and type of pain. The symptoms resolved as the day went on and it did not bother her again until this morning. She has not had a fever, cough, cold, anterior chest pain, abdominal pain, nausea, vomiting, loss of appetite, constipation, diarrhea, urinary problems, kidney stones, neck pain, headache, visual disturbance, jaw claudication. She reports the pain takes her breath away. At rest she is not dyspneic and but she reports it is painful to take a deep breath. The pain does not extend into her left arm or her left leg. Does not cross the midline to the right side of her back. She reports he is generally healthy. She has hypertension for which she takes amlodipine and arthritis in her knees for which she takes Celebrex and acetaminophen. She has had both shoulders replaced a couple years ago without complications. She does have some chronic left shoulder pain that she reports is due to his always sleeping on her left shoulder at night. She is known to have a left inguinal hernia. This is been diagnosed a couple years ago by her primary care doctor. She has not had any problems with it such as pain or bowel obstruction. Review of Systems Narrative: She reports feeling well other than these 2 episodes of severe left back pain in the last 11 days. No other symptoms of illness. 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 Code status is DNR. She does not smoke. She drinks 1 drink a week. What is your current living situation?: I presently have a place to live Problems where you live: no known problems Problems where you live details: N/A In the past 12 months, utilities in danger of being shut off: no In past 12 months, lack of transportation kept you from medical appts, meetings, work, or getting things needed for daily living: no In the past 12 mos, have been you worried that your food would run out before you had money to buy more?: never true In the past 12 mos, the food you bought just didn't last and you didn't have money to buy more?: never true Highest level of school completed/degree received: some college, no degree Smoking Status: Never smoker Do you use any of these nicotine containing products: None Second hand tobacco smoke exposure: No How often do you have a drink containing alcohol: monthly or less Alcohol type: hard liquor How many standard drinks containing alcohol do you have on a typical day: 1 or 2 How often do you have six or more drinks on one occasion: Never AUDIT-C Alcohol total score: 1 Non-prescribed substance use: denies use Caffeine: Yes (1 cup coffee daily) Are you now , , , , never or living with a partner: Social isolation score (0-1 are the most socially isolated patients): 1 How often does anyone, including family, friends and others, physically hurt you : never How often does anyone, including family, friends and others, insult or talk down to you: never How often does anyone, including family, friends and others, threaten you with harm: never How often does anyone, including family, friends and others, scream or curse at you: never Little interest or pleasure in doing things: more than half the days Feeling down, depressed, or hopeless: not at all service: No Meds Home Medications and Allergies Home Medications ?Medication ?Instructions ?Recorded ?Confirmed ?Type celecoxib 200 mg capsule (Celebrex) 200 mg PO DAILY pain 03/03/24 03/03/24 History Allergies Allergy/AdvReac Type Severity Reaction Status Date / Time No Known Allergies Allergy Verified 03/03/24 08:19 Exam Narrative: Exam Narrative: She is alert and appears in no distress. She gives her own history. Head without trauma. No facial asymmetry. Eyes are normal. Extraocular movements are full. Palpation of the temporal arteries is nontender. Oropharynx is normal. Neck is supple without mass or adenopathy. Range of motion the neck is without discomfort. Inspection of her back shows no abnormality, trauma or rash. Palpation over her entire back from shoulders to buttock is nontender. Range of motion her shoulders is symmetric without significant discomfort. strength testing is full and symmetric in both upper extremities. Respirations are clear to auscultation. Cardiovascular: S1, S2, regular rate and rhythm. Abdomen: Bowel sounds active. Abdomen is soft without tenderness or mass. She has a firm inguinal mass which is nontender consistent with her hernia. Lower extremities with intact pedal pulses. She moves her lower extremities well. No edema. Const: Vital Signs, click to edit/add: Vital Signs - 24 hr 03/03/24 08:19 03/03/24 08:20 03/03/24 08:25 Temperature 98.3 F Pulse Rate Pulse Rate [Pulse Oximeter] 74 Respiratory Rate 40 H Blood Pressure Blood Pressure [Ri ght Arm] Blood Pressure [Ri ght Upper Arm] 151/75 H Pulse Oximetry 89 89 94 Oxygen Delivery Me thod Room Air Nasal Cannula Oxygen Flow Rate 2 03/03/24 08:25 03/03/24 08:30 03/03/24 08:32 Temperature Pulse Rate 76 77 76 Pulse Rate [Pulse Oximeter] Respiratory Rate 38 H Blood Pressure 148/81 H Blood Pressure [Ri ght Arm] Blood Pressure [Ri ght Upper Arm] Pulse Oximetry 96 97 97 Oxygen Delivery Me thod Oxygen Flow Rate 03/03/24 08:45 03/03/24 08:48 03/03/24 09:00 Temperature Pulse Rate 77 81 79 Pulse Rate [Pulse Oximeter] Respiratory Rate Blood Pressure 111/69 Blood Pressure [Ri ght Arm] Blood Pressure [Ri ght Upper Arm] Pulse Oximetry 96 95 93 Oxygen Delivery Me thod Oxygen Flow Rate 03/03/24 09:03 03/03/24 09:15 03/03/24 09:17 Temperature Pulse Rate 80 80 80 Pulse Rate [Pulse Oximeter] Respiratory Rate 32 H Blood Pressure 141/73 H 140/84 H Blood Pressure [Ri ght Arm] Blood Pressure [Ri ght Upper Arm] Pulse Oximetry 92 92 92 Oxygen Delivery Me thod Oxygen Flow Rate 03/03/24 09:54 03/03/24 10:02 03/03/24 10:17 Temperature Pulse Rate 90 84 82 Pulse Rate [Pulse Oximeter] Respiratory Rate 14 12 16 Blood Pressure 137/67 114/58 L 116/59 L Blood Pressure [Ri ght Arm] Blood Pressure [Ri ght Upper Arm] Pulse Oximetry 95 94 91 Oxygen Delivery Me thod OxyMask Oxygen Flow Rate 2 03/03/24 10:32 03/03/24 10:47 03/03/24 11:00 Temperature Pulse Rate 80 81 76 Pulse Rate [Pulse Oximeter] Respiratory Rate 12 14 Blood Pressure 128/63 127/68 Blood Pressure [Ri ght Arm] Blood Pressure [Ri ght Upper Arm] Pulse Oximetry 90 93 88 Oxygen Delivery Me thod Room Air Room Air Oxygen Flow Rate 03/03/24 11:02 03/03/24 11:17 03/03/24 11:32 Temperature Pulse Rate 77 76 72 Pulse Rate [Pulse Oximeter] Respiratory Rate 14 14 14 Blood Pressure 129/68 125/64 130/74 Blood Pressure [Ri ght Arm] Blood Pressure [Ri ght Upper Arm] Pulse Oximetry 93 94 94 Oxygen Delivery Me thod OxyMask Oxygen Flow Rate 1 1 1 03/03/24 11:50 03/03/24 12:00 03/03/24 12:38 Temperature 98.3 F Pulse Rate 75 Pulse Rate [Pulse Oximeter] 74 Respiratory Rate 14 16 24 Blood Pressure Blood Pressure [Ri ght Arm] Blood Pressure [Ri ght Upper Arm] 151/75 H Pulse Oximetry 94 92 Oxygen Delivery Me thod Room Air Oxygen Flow Rate 1 03/03/24 12:41 03/03/24 15:37 Temperature 98.2 F 99.8 F H Pulse Rate Pulse Rate [Pulse Oximeter] 86 78 Respiratory Rate 24 20 Blood Pressure Blood Pressure [Ri ght Arm] 151/69 H 143/64 H Blood Pressure [Ri ght Upper Arm] Pulse Oximetry 92 90 Oxygen Delivery Me thod Room Air Room Air Oxygen Flow Rate Documenting provider has reviewed patient's vital signs: yes Hospitalist - H&P: Result Labs Labs: Short CBC 03/03/24 Range/Units 08:25 WBC 13.84 H (4.50-11.00) K/uL Hgb 14.0 (12.0-16.0) gm/dL Hct 44.9 (33.0-51.0) % Plt Count 325 (140-440) K/uL BMP 03/03/24 08:25 Sodium 140 Potassium 4.1 Chloride 107 Carbon Dioxide 24 BUN 15 Creatinine 0.6 Glucose 134 H Calcium 9.2 Cardiac Enzymes 03/03/24 Range/Units 08:25 Troponin I < 0.01 L (0.01-0.04) ng/mL Liver Function 03/03/24 Range/Units 08:25 Total Bilirubin 0.7 (0.1-1.5) mg/dL Direct Bilirubin 0.4 (0.0-0.5) mg/dL AST 21 (12-35) U/L ALT 12 (4-35) U/L Alkaline Phosphatase 101 (40-150) U/L Albumin 4.2 (3.3-5.0) g/dL Urine 03/03/24 Range/Units 09:35 Urine Color [place] A (Yellow) Urine Appearance Slightly Cloudy A (Clear) Urine pH 7.5 (5.0-8.5) Ur Specific [place] 1.015 (1.000-1.030) Urine Protein Trace A (Negative) Urine Glucose (UA) Negative (Negative) Imaging CT scan - chest: Radiologist's impression: NDICATION: Shortness of breath. Elevated D-dimer. TECHNIQUE: CT chest PE was acquired with 95 cc Isovue 370 IV contrast. COMPARISON: None. FINDINGS: Heart and vasculature: Contrast opacification of the pulmonary arterial tree is adequate. No sign of pulmonary embolism. Heart size is normal. Thoracic aorta and pulmonary artery are normal in caliber. Lungs and pleura: Small left basilar pleural effusion with adjacent atelectasis favored over infiltrate. Small consolidation in the lingula could represent chronic scarring favored over pneumonia. Small areas of scarring also present in the right lung. No suspicious nodules. There are calcified granulomas. No pneumothorax. Lymph nodes/mediastinum: No mediastinal, hilar, or axillary adenopathy. Chest wall: No masses. Upper abdomen: No acute or significant findings. Bones: Unremarkable for age. IMPRESSION: 1. No pulmonary embolism. 2. Small left basilar pleural effusion with adjacent atelectasis favored over infiltrate. Scattered areas of scarring in both lungs. 3. No other acute or specific findings to explain shortness of breath. CT scan - abdomen: Radiologist's impression: INDICATION: Left flank pain TECHNIQUE: CT abdomen and pelvis without contrast. COMPARISON: None. FINDINGS: Lower chest: Lingular and left lower lobe atelectasis and consolidation. Small left effusion. Right basilar atelectasis. Liver: Too small low-attenuation lesion left hepatic lobe.. To characterize Gallbladder and bile ducts: No stones or inflammation. No biliary dilatation. Pancreas: Unremarkable. No mass or inflammation. Spleen: Normal in size. No masses. Adrenal glands: Normal in size. No nodules. Kidneys: No renal calculi. No hydronephrosis. 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 GI tract: Diverticulosis. Vasculature: Abdominal aorta is normal in caliber. Lymph nodes: No lymphadenopathy. Peritoneum/Abdominal Wall: Left inguinal hernia containing colon. There is fat stranding within the inguinal hernia sac. Mild diverticulitis not excluded. Bowel is otherwise unremarkable. Normal appendix. There is no obstruction visualized. Pelvis: Unremarkable. No pelvic masses. Bones: Unremarkable for age. IMPRESSION: 1. No renal calculi or hydronephrosis. 2. Diverticulosis. Small left inguinal hernia containing colon. There is fat stranding within the hernia sac. Mild diverticulitis not excluded. There is no bowel obstruction seen. Assessment and Plan Assessment and plan (1) Back pain: Problem comment: Patient has had 2 episodes of severe left back pain extending from the left shoulder down to the left buttock. The cause for this is uncertain. I favor an inflammatory process for this. No obvious infection identified at this time. Considerations would include atypical polymyalgia rheumatica and atypical rheumatoid arthritis with the left pleural effusion. Status: Acute (2) Pleural effusion, left: Problem comment: Small left pleural effusion of uncertain cause. ? Inflammatory process such as rheumatoid arthritis. Status: Acute (3) Incarcerated inguinal hernia: Problem comment: Currently asymptomatic. Consider elective repair per surgery Status: Acute Plan Patient is admitted for the hospital for evaluation of 2 episodes of severe back pain with increased inflammatory markers and finding of small pleural effusion. Will initiate additional serologic testing looking for causes. Pleural effusion is currently quite small and likely too small to sample. Will initiate prednisone 20 mg now and consider low-dose prednisone short course pending outpatient followup. Consider rheumatology evaluation. Total Time Spent Total Time Spent: 80 minutes
[2024-03-03 16:37] LABS: Erythrocyte SedimentationRate* 39 mm/hr (2-20)
--- NOTE | 2024-03-03 18:41 | PC.NURSE ---
End of shift-- Very pleasant and cooperative, alert and oriented patient was admitted to Med-Surg. VSS and highest temp 99.8F temporal. SPO2 >90% on RA. Pt c/o sharp back pain which she rates as high as 8 out of 10. Pt was given Ultram and Prednisone per MD order and has denied relief, but did state that pain was not too bad when she was up to the bathroom. Left base of lungs diminished, but otherwise CTA. She denied nausea, ate half of a regular dinner and tolerated it well. She was up to the bathroom with SBA/ independent and tolerated it well.
[2024-03-03] MEDS: ACETAMINOPHEN 650 MG TABLET ER 1300 MG PO (20:39)
[2024-03-03 20:58] LABS: Troponin I* < 0.01 ng/mL (0.01-0.04)
[2024-03-04] VITALS (7 sets, daily range): BP systolic 112–143; BP diastolic 54–85; PULSE 74–84; RESP 20–28; TEMP 36.7–37.5; O2SAT 93–95
[2024-03-04] MEDS: MORPHINE 2 MG/ML inj IVP ×3 (02:30→08:24)
[2024-03-04] MEDS: TRAMADOL HCL 50 MG TABLET PO (04:46)
--- NOTE | 2024-03-04 05:39 | PC.NURSE ---
Patient pleasant, alert and oriented. Reported left chest and back pain rated 9/10 last evening. BP, respirations and Temp elevated at that time. Dr Sears updated. EKG, troponin level and PRN Morphine IVP ordered. Morphine effective for chest pain. Patient continued to report?back pain rated 4-9/10 during the night, but denied any further chest pain since that time. Given PRN Morphine and Tramadol for pain. Ambulated independently in room. ?
[2024-03-04 06:34] LABS: Basophils Percent Auto 0.1 % (0.0-3.0); Hematocrit 41.6 % (33.0-51.0); Immature Granulocytes Pct Auto 0.3 %; Lymphocytes Percent Auto 5.9 % (20-44); Mean Corpuscular HGB Conc 31 gm/dL (32-36); Mean Corpuscular Hemoglobin 32 pg (26-34); Mean Corpuscular Volume 101 fL (80-100); Monocytes Percent Auto 7.1 % (0.0-11.0); Neutrophils Percent Auto 86.6 % (42.0-72.0); Platelet Count* 280 K/uL (140-440); RDW Coefficient of Variation % 14.6 % (11.5-15.5); Red Blood Count 4.12 m/uL (4.00-5.20); White Blood Count* 17.54 K/uL (4.50-11.00)
[2024-03-04 07:11] LABS: C Reactive Protein* 22.1 mg/dL (0.5-1.0); Troponin I* < 0.01 ng/mL (0.01-0.04)
[2024-03-04 07:12] LABS: Slide Review Reflex No
[2024-03-04] MEDS: AMLODIPINE 5 MG TABLET PO (08:24)
[2024-03-04] MEDS: SODIUM CHLORIDE 0.9 % (FLUSH) 10 ML SYRINGE 5 ML IVF ×2 (08:25→20:46)
--- NOTE | 2024-03-04 09:27 | PM.GSPN ---
Subjective Subjective Date Seen: 03/04/24 Interval history: Mariposa feels the same. She still has pain with deep inspiration. She states that she slept well. The pain medication helped. She has no nausea or vomiting. She continues to deny abdominal pain. She has no pain in her groin. She is not passing any gas and has not had a bowel movement since admission. Exam Narrative: Exam Narrative: General: Patient is in no acute distress CV: Regular rate Respiratory: Mildly tachypneic with a respiratory rate of 20. Saturations are in the low 90s on 1 L nasal cannula. Abdomen: Protuberant. Nontender. Left groin hernia is palpable. This remains non reducible. Patient denies tenderness or discomfort at the hernia site. Const: Vital Signs, click to edit/add: Vital Signs - 24 hr 03/03/24 09:54 03/03/24 10:02 03/03/24 10:17 Temperature Pulse Rate 90 84 82 Pulse Rate [Pulse Oximeter] Respiratory Rate 14 12 16 Blood Pressure 137/67 114/58 L 116/59 L Blood Pressure [Ri ght Arm] Blood Pressure [Ri ght Upper Arm] Pulse Oximetry 95 94 91 Oxygen Delivery Me thod OxyMask Oxygen Flow Rate 2 03/03/24 10:32 03/03/24 10:47 03/03/24 11:00 Temperature Pulse Rate 80 81 76 Pulse Rate [Pulse Oximeter] Respiratory Rate 12 14 Blood Pressure 128/63 127/68 Blood Pressure [Ri ght Arm] Blood Pressure [Ri ght Upper Arm] Pulse Oximetry 90 93 88 Oxygen Delivery Me thod Room Air Room Air Oxygen Flow Rate 03/03/24 11:02 03/03/24 11:17 03/03/24 11:32 Temperature Pulse Rate 77 76 72 Pulse Rate [Pulse Oximeter] Respiratory Rate 14 14 14 Blood Pressure 129/68 125/64 130/74 Blood Pressure [Ri ght Arm] Blood Pressure [Ri ght Upper Arm] Pulse Oximetry 93 94 94 Oxygen Delivery Me thod OxyMask Oxygen Flow Rate 1 1 1 03/03/24 11:50 03/03/24 12:00 03/03/24 12:38 Temperature 98.3 F Pulse Rate 75 Pulse Rate [Pulse Oximeter] 74 Respiratory Rate 14 16 24 Blood Pressure Blood Pressure [Ri ght Arm] Blood Pressure [Ri ght Upper Arm] 151/75 H Pulse Oximetry 94 92 Oxygen Delivery Me thod Room Air Oxygen Flow Rate 1 03/03/24 12:41 03/03/24 15:00 03/03/24 15:37 Temperature 98.2 F 99.8 F H Pulse Rate Pulse Rate [Pulse Oximeter] 86 78 78 Respiratory Rate 24 20 20 Blood Pressure Blood Pressure [Ri ght Arm] 151/69 H 143/64 H Blood Pressure [Ri ght Upper Arm] Pulse Oximetry 92 90 Oxygen Delivery Me thod Room Air Room Air Oxygen Flow Rate 03/03/24 19:55 03/03/24 22:29 03/03/24 22:29 Temperature 101.1 F H 99.2 F Pulse Rate Pulse Rate [Pulse Oximeter] 87 84 Respiratory Rate 40 H 22 22 Blood Pressure Blood Pressure [Ri ght Arm] 154/77 H 124/60 Blood Pressure [Ri ght Upper Arm] Pulse Oximetry 90 93 93 Oxygen Delivery Me thod Room Air Nasal Cannula Nasal Cannula Oxygen Flow Rate 1 1 03/04/24 02:11 Temperature 98.9 F Pulse Rate Pulse Rate [Pulse Oximeter] 80 Respiratory Rate 20 Blood Pressure Blood Pressure [Ri ght Arm] 143/73 H Blood Pressure [Ri ght Upper Arm] Pulse Oximetry 93 Oxygen Delivery Me thod Nasal Cannula Oxygen Flow Rate 1 Labs/Imaging Labs Labs: White blood cell count today is up to 17 CRP is up to 22. Progress Note:A&P Assessment and plan (1) Pleural effusion, left: Status: Acute (2) Back pain: Status: Acute (3) Incarcerated inguinal hernia: Status: Acute Plan The patient is an 83-year-old female with an incarcerated left inguinal hernia containing colon, who presented with pleuritic chest pain on the left side. She does have consolidation and effusion on this side. The case was discussed with hospitalist today. It was thought initially that this could be inflammatory in nature and she was given steroids. This could explain her elevated white blood cell count, however she does not feel better and also her CRP continues to go up. I recommend treating her for possible pneumonia and pleuritis. I again explained that given her laboratory values I continue to have concern for her incarcerated hernia, however she has no pain in this area. Therefore I think a watchful waiting approach continues to be the best course of action. If the patient develops any abdominal symptoms, then surgery should be contacted for potential emergent hernia repair. -regular diet is okay at this time
[2024-03-04] MEDS: cefTRIAXone 1 GM in 0.9 % SODIUM CHLORIDE Mini-bag 100 ML IVPB (09:50)
[2024-03-04] MEDS: CELECOXIB 200 MG CAPSULE PO (09:50)
--- NOTE | 2024-03-04 10:15 | PM.IMPN1 ---
Progress Note: A&P Assessment and plan (1) Community acquired pneumonia: Problem details: 2 CTs read by 2 different radiologists, documenting left lower lobe consolidation, atelectasis, small effusion Leukocytosis with left shift on admission, up this morning. Did receive oral steroid yesterday but has also had a fever and has not yet had antibiotics CRP trending up. Procalcitonin negative. Strep pneumo/Legionella pending Hypoxic, intermittent tachypnea, requiring O2 supplementation, currently 1 L per NC, continue to wean as able. Initiating IV ceftriaxone and azithromycin, monitoring response Encourage incentive spirometry, aerobika Status: Acute (2) Back pain: Problem details: Patient has had 2 episodes of severe left back pain extending from the left shoulder down to the left buttock. Currently pleuritic in nature Ddx include pneumonia, atypical polymyalgia rheumatica and atypical rheumatoid arthritis with the left pleural effusion Pending CCP antibody, IgG, IgA, RF, JOSEFA Working diagnosis during this admission currently pleuritic pain in setting of community-acquired pneumonia. Antibiotics initiated as above, monitoring response Continue scheduled Tylenol, oxycodone prn Status: Acute (3) Pleural effusion, left: Problem details: Small left pleural effusion. With consolidation noted. Manage as community-acquired pneumonia as above, monitoring response Status: Acute (4) Incarcerated inguinal hernia: Problem details: Currently asymptomatic. General surgery, Dr. Mac, consulted. Discussed, will manage pneumonia during hospital course. Outpatient follow-up with General surgery, monitoring for new or worsening symptoms during hospitalization. Status: Acute (5) Hypertension: Problem details: Continue amlodipine Status: Chronic Time Spent With Patient Total time spent: Total time spent caring for the patient today was 45 minutes. This includes time spent for the visit reviewing the chart, time spent during the visit, time spent after the visit and documentation and planning in coordination of care. Subjective Date Seen: 03/04/24 Interval history: Patient is seen this morning with at bedside. Continues to have left-sided discomfort, dull at rest, sharp with deep breathing. Does not worsen with change in position. Continues to require oxygen, currently 1 L per N/C. Documented oxygen saturations currently low 90s, has had readings in the upper 80s. Fever of 101.1? around 8:00 p.m. last night. Denies new or worsening cough though is not normally oxygen dependent. Slept well last night. Exam Narrative: Exam Narrative: PHYSICAL EXAM General: Pleasant, conversant, NAD HEENT: Normocephalic, atraumatic, sclera white, EOMI, oral mucosa moist Cardiovascular: RRR, S1S2. No pitting edema Pulmonary: CTA slightly diminished without rhonchi, rales, expiratory wheezes. No dyspnea on room air Abdominal: Soft, nondistended, NTTP Neurological: Alert, answering questions appropriately, cranial nerves intact, no focal findings Extremities: No gross joint deformity or swelling. AROMI. Neurovascularly intact Skin: Warm, dry. Const: Vital Signs, click to edit/add: Vital Signs - 24 hr 03/03/24 10:17 03/03/24 10:32 03/03/24 10:47 Temperature Pulse Rate 82 80 81 Pulse Rate [Pulse Oximeter] Respiratory Rate 16 12 14 Blood Pressure 116/59 L 128/63 127/68 Blood Pressure [Ri ght Arm] Blood Pressure [Ri ght Upper Arm] Pulse Oximetry 91 90 93 Oxygen Delivery Me thod Room Air Oxygen Flow Rate 03/03/24 11:00 03/03/24 11:02 03/03/24 11:17 Temperature Pulse Rate 76 77 76 Pulse Rate [Pulse Oximeter] Respiratory Rate 14 14 Blood Pressure 129/68 125/64 Blood Pressure [Ri ght Arm] Blood Pressure [Ri ght Upper Arm] Pulse Oximetry 88 93 94 Oxygen Delivery Me thod Room Air OxyMask Oxygen Flow Rate 1 1 03/03/24 11:32 03/03/24 11:50 03/03/24 12:00 Temperature 98.3 F Pulse Rate 72 75 Pulse Rate [Pulse Oximeter] 74 Respiratory Rate 14 14 16 Blood Pressure 130/74 Blood Pressure [Ri ght Arm] Blood Pressure [Ri ght Upper Arm] 151/75 H Pulse Oximetry 94 94 Oxygen Delivery Me thod Oxygen Flow Rate 1 03/03/24 12:38 03/03/24 12:41 03/03/24 15:00 Temperature 98.2 F Pulse Rate Pulse Rate [Pulse Oximeter] 86 78 Respiratory Rate 24 24 20 Blood Pressure Blood Pressure [Ri ght Arm] 151/69 H Blood Pressure [Ri ght Upper Arm] Pulse Oximetry 92 92 Oxygen Delivery Me thod Room Air Room Air Oxygen Flow Rate 1 03/03/24 15:37 03/03/24 19:55 03/03/24 22:29 Temperature 99.8 F H 101.1 F H Pulse Rate Pulse Rate [Pulse Oximeter] 78 87 Respiratory Rate 20 40 H 22 Blood Pressure Blood Pressure [Ri ght Arm] 143/64 H 154/77 H Blood Pressure [Ri ght Upper Arm] Pulse Oximetry 90 90 93 Oxygen Delivery Me thod Room Air Room Air Nasal Cannula Oxygen Flow Rate 1 03/03/24 22:29 03/04/24 02:11 Temperature 99.2 F 98.9 F Pulse Rate Pulse Rate [Pulse Oximeter] 84 80 Respiratory Rate 22 20 Blood Pressure Blood Pressure [Ri ght Arm] 124/60 143/73 H Blood Pressure [Ri ght Upper Arm] Pulse Oximetry 93 93 Oxygen Delivery Me thod Nasal Cannula Nasal Cannula Oxygen Flow Rate 1 1 Labs Labs: Laboratory Results - last 24 hr 03/03/24 03/03/24 03/03/24 08:25 11:38 12:26 WBC RBC Hgb Hct MCV MCH MCHC RDW Coeff of Reuben Plt Count Neut % (Auto) Lymph % (Auto) [place] % (Auto) Eos % (Auto) Baso % (Auto) Neut # (Auto) Lymph # (Auto) [place] # (Auto) Eos # (Auto) Baso # (Auto) Abs Immat Gran (auto) Imm/Tot Granulo (auto) ESR 39 H VBG pH 7.387 VBG pCO2 46 VBG pO2 31.2 VBG HCO3 28 Troponin I C-Reactive Protein Procalcitonin 0.07 Lab Acknowledgement Test Added 03/03/24 03/04/24 03/04/24 20:25 05:40 10:02 WBC 17.54 H RBC 4.12 Hgb 13.0 Hct 41.6 MCV 101 H MCH 32 MCHC 31 L RDW Coeff of Reuben 14.6 Plt Count 280 Neut % (Auto) 86.6 H Lymph % (Auto) 5.9 L [place] % (Auto) 7.1 Eos % (Auto) 0.0 Baso % (Auto) 0.1 Neut # (Auto) 15.20 H Lymph # (Auto) 1.00 [place] # (Auto) 1.20 H Eos # (Auto) 0.00 Baso # (Auto) 0.00 Abs Immat Gran (auto) 0.10 Imm/Tot Granulo (auto) 0.3 ESR VBG pH VBG pCO2 VBG pO2 VBG HCO3 Troponin I < 0.01 L < 0.01 L C-Reactive Protein 22.1 H Procalcitonin Lab Acknowledgement Test Added
--- NOTE | 2024-03-04 10:30 | REH.PT ---
Hold PT Eval at this time secondary to upper back pain with all deep breathing that is exacerbated with mobility. Pt beginning antibiotic tx for pnx this am. Will assess in 24 hours.
[2024-03-04] MEDS: AZITHROMYCIN 500 MG in 0.9 % SODIUM CHLORIDE 250 ml 250 ML 255 MG IVPB (10:47)
[2024-03-04 10:52] LABS: Legionella pneumo Ag Urine L. pneumo Negative (Negative); S pneumo Ag Urine S. pneumo Negative (Negative)
[2024-03-04] MEDS: ACETAMINOPHEN 650 MG TABLET ER PO ×3 (12:39→20:45)
[2024-03-04] MEDS: OXYCODONE 5 MG TABLET 2.5 MG PO (18:58)
--- NOTE | 2024-03-04 19:05 | PC.NURSE ---
End of shift [id number] ? Pt alert, oriented, pleasant. Up with standby assistance, tolerating O2 via nasal cannula at 2L and able to be weaned to 1.5L during shift to maintain oxygenation at 90% or greater per MD order. Pt reported pain in L back as 9/10 when moving and 2/10 when at rest. Medication given per MAR with pt reporting improved comfort. Aqua K pad in place. Pt observed to sleep during shift, family at bedside during waking hours. Tolerating regular diet, noted to report poor appetite at beginning of shift. Encouraged to increase fluid intake. Pt receptive to pulmonary hygiene education given by RN. Noted to be SOB with exertion but observed to recover quickly with appropriate breathing techniques and O2 via nasal cannula. Appears to be resting comfortably in chair at end of shift with call light within reach. ?
[2024-03-04] MEDS: SENNOSIDES/DOCUSATE TABLET 1 TAB PO (20:45)
[2024-03-05 03:00] VITALS: BP 137/69; PULSE 84; RESP 20; TEMP 37.7; O2SAT 94
--- NOTE | 2024-03-05 04:46 | PC.NURSE ---
Shift note: Pt is doing well ambulating independently in room. Complained of intermittent back pain with activity but refused pain medication. Oxygen given at 1.5L through NC. Low grade fever of 99.9 recorded at 0300. Alert and oriented.
--- NOTE | 2024-03-05 05:50 | PC.NURSE ---
Nurse note: Oxygen discontinued at 0530. Pt was able to maintain O2>90% on RA. However, O2 desaturate with activity.
[2024-03-05 06:25] LABS: Hematocrit 40.3 % (33.0-51.0); Hemoglobin* 12.7 gm/dL (12.0-16.0); Mean Corpuscular HGB Conc 32 gm/dL (32-36); Mean Corpuscular Hemoglobin 32 pg (26-34); Mean Corpuscular Volume 101 fL (80-100); Platelet Count* 305 K/uL (140-440); Red Blood Count 4.01 m/uL (4.00-5.20); Slide Review Reflex No; White Blood Count* 17.38 K/uL (4.50-11.00)
[2024-03-05 06:34] LABS: Chloride* 103 mmol/L (96-114)
[2024-03-05 06:35] LABS: Potassium* 3.9 mmol/L (3.6-5.1); Sodium* 136 mmol/L (135-149)
[2024-03-05 06:37] LABS: Creatinine* 0.5 mg/dL (0.5-1.5); Est. Creatinine Clearance* 35.52; Estimated Glomerular Filt Rate 92 ml/min
[2024-03-05 06:38] LABS: Anion Gap 6 mEq/L (7-15); Blood Urea Nitrogen* 16 mg/dL (7-30); Calcium* 8.9 mg/dL (8.4-10.6); Carbon Dioxide* 27 mmol/L (20-32); Glucose* 116 mg/dL (60-115)
[2024-03-05 07:50] VITALS: BP 142/72; PULSE 86; RESP 28; TEMP 37.2; O2SAT 90
[2024-03-05] MEDS: cefTRIAXone 1 GM in 0.9 % SODIUM CHLORIDE Mini-bag 100 ML IVPB (08:34)
[2024-03-05] MEDS: CELECOXIB 200 MG CAPSULE PO (09:19)
[2024-03-05] MEDS: AMLODIPINE 5 MG TABLET PO (09:19)
[2024-03-05] MEDS: SENNOSIDES/DOCUSATE TABLET 1 TAB PO ×2 (09:19→20:29)
[2024-03-05] MEDS: ACETAMINOPHEN 650 MG TABLET ER PO ×4 (09:19→20:29)
[2024-03-05] MEDS: SODIUM CHLORIDE 0.9 % (FLUSH) 10 ML SYRINGE 5 ML IVF ×2 (09:20→20:29)
[2024-03-05] MEDS: AZITHROMYCIN 500 MG in 0.9 % SODIUM CHLORIDE 250 ml 250 ML 255 MG IVPB (09:29)
[2024-03-05 10:38] LABS: C Reactive Protein* 39.2 mg/dL (0.5-1.0)
[2024-03-05 11:09] VITALS: BP 122/57; PULSE 78; RESP 26; TEMP 37.7; O2SAT 90
--- NOTE | 2024-03-05 11:18 | PM.IMPN1 ---
Progress Note: A&P Assessment and plan (1) Community acquired pneumonia: Problem details: 2 CTs read by 2 different radiologists, documenting left lower lobe consolidation, atelectasis, small effusion Leukocytosis with left shift on admission - just starting to trend down. Received one dose of steroid on admission, restarting this / CRP continues to trend up - no new or worsening symptoms, no fevers. Antibiotics started 24 hours ago Procalcitonin negative. Strep pneumo/Legionella negative Hypoxic, intermittent tachypnea, requiring O2 supplementation, currently <1 L per NC, continue to wean as able IV ceftriaxone and azithromycin, monitoring response Encourage incentive spirometry, aerobika, ambulation Status: Acute (2) Hypoxia: Problem details: In setting of suspected pneumonia - managing with antibiotics, pleural effusion, atelectasis Symptomatic pleuritic pain - managing with steroids Continue supplemental oxygen as needed, weaning as able VBG, trop unremarkable on admission BNP 362, RAFAEL (do not see previous results) ordered for further investigation Status: Acute (3) Back pain: Problem details: Patient has had 2 episodes of severe left back pain extending from the left shoulder down to the left buttock. Currently pleuritic in nature Ddx include pneumonia, atypical polymyalgia rheumatica and atypical rheumatoid arthritis with the left pleural effusion Pending CCP antibody, IgG, IgA, RF, JOSEFA Working diagnosis during this admission currently pleuritic pain in setting of community-acquired pneumonia. Antibiotics initiated as above, monitoring response Continue scheduled Tylenol, oxycodone prn, restart prednisone for 5 day course Status: Acute (4) Pleural effusion, left: Problem details: Small left pleural effusion. With consolidation noted. Manage as community-acquired pneumonia as above, monitoring response ECHO ordered Status: Acute (5) Incarcerated inguinal hernia: Problem details: Remains asymptomatic. General surgery, Dr. Mac, consulted. Discussed, will manage pneumonia during hospital course. Outpatient follow-up with General surgery Monitoring for new or worsening symptoms during hospitalization - contact General Surgery if concerns Status: Acute (6) Hypertension: Problem details: Continue amlodipine Status: Chronic Time Spent With Patient Total time spent: Total time spent caring for the patient today was 45 minutes. This includes time spent for the visit reviewing the chart, time spent during the visit, time spent after the visit and documentation and planning in coordination of care. Subjective Date Seen: 03/05/24 Interval history: Seen again this morning with at bedside. Reports feeling may be slightly better than yesterday but no significant improvement yet. Continues to have stabbing left-sided posterior rib cage pain. Was weaned to room air overnight. Currently sitting with small amount of oxygen on, satting low 90s. Dips below 90 with ambulation. Last fever over 100? was more than 36 hours ago now. Continues to deny abdominal pain. Still very little appetite. No nausea vomiting. Exam Narrative: Exam Narrative: PHYSICAL EXAM General: Pleasant, conversant, NAD Cardiovascular: RRR, S1S2. No pitting edema Pulmonary: CTA without rhonchi, rales, expiratory wheezes. No dyspnea. Moving air with less pain this morning Abdominal: Soft, nondistended, NTTP Neurological: Alert, answering questions appropriately, cranial nerves intact, no focal findings Extremities: No gross joint deformity or swelling. AROMI. Neurovascularly intact Skin: Warm, dry. Const: Vital Signs, click to edit/add: Vital Signs - 24 hr 03/04/24 12:56 03/04/24 17:29 03/04/24 17:30 Temperature 99.5 F 98.0 F Pulse Rate [Pulse Oximeter] 79 80 Respiratory Rate 24 Blood Pressure [Ri t Arm] 121/63 136/58 L Pulse Oximetry 95 93 93 Oxygen Delivery Me thod Nasal Cannula Nasal Cannula Nasal Cannula Oxygen Flow Rate 2 1.5 1.5 03/04/24 19:00 03/04/24 22:55 03/04/24 22:55 Temperature 99.5 F Pulse Rate [Pulse Oximeter] 78 74 Respiratory Rate 20 20 20 Blood Pressure [Ri ght Arm] 112/54 L Pulse Oximetry 93 93 Oxygen Delivery Me thod Nasal Cannula Nasal Cannula Oxygen Flow Rate 1.5 1.5 03/04/24 22:55 03/05/24 03:00 03/05/24 07:50 Temperature 99.4 F 99.9 F H 98.9 F Pulse Rate [Pulse Oximeter] 74 84 86 Respiratory Rate 20 20 28 H Blood Pressure [Ri ght Arm] 138/85 137/69 142/72 H Pulse Oximetry 93 94 90 Oxygen Delivery Me thod Nasal Cannula Nasal Cannula Room Air Oxygen Flow Rate 1.5 1.5 03/05/24 07:50 03/05/24 07:50 Temperature Pulse Rate [Pulse Oximeter] 86 Respiratory Rate 28 H 28 H Blood Pressure [Ri ght Arm] Pulse Oximetry 90 Oxygen Delivery Me thod Room Air Oxygen Flow Rate Labs Labs: Laboratory Results - last 24 hr 03/05/24 03/05/24 06:00 08:53 WBC 17.38 H RBC 4.01 Hgb 12.7 Hct 40.3 MCV 101 H MCH 32 MCHC 32 Plt Count 305 Sodium 136 Potassium 3.9 Chloride 103 Carbon Dioxide 27 Anion Gap 6 L BUN 16 Creatinine 0.5 Estimated Creat Clear 35.52 Estimated GFR 92 Glucose 116 H Calcium 8.9 C-Reactive Protein 39.2 H Lab Acknowledgement Test Added
[2024-03-05] MEDS: predniSONE 20 MG TABLET PO (11:44)
--- NOTE | 2024-03-05 11:58 | PM.GSPN ---
Subjective Subjective Date Seen: 03/05/24 Interval history: El fermin is feeling somewhat better on my exam, however she states that she was very uncomfortable this morning. She has been coughing up phlegm. She denies any abdominal pain. She states she is not passing gas. She does not feel as though her abdomen is distended. She has no groin pain. She has had low-grade fevers. Exam Narrative: Exam Narrative: General: No acute distress CV: Regular rate Respiratory: Breathing appears nonlabored. She is on nasal cannula this morning. Abdomen. Soft. Patient appears mildly protuberant however she is sitting up in a chair. Hernia feels smaller to palpation today. The patient had mild tenderness today when I pressed, however she stated that it was very mild. No discomfort at rest. Const: Vital Signs, click to edit/add: Vital Signs - 24 hr 03/04/24 12:56 03/04/24 17:29 03/04/24 17:30 Temperature 99.5 F 98.0 F Pulse Rate [Pulse Oximeter] 79 80 Respiratory Rate 24 24 24 Blood Pressure [Le ft Arm] Blood Pressure [Ri ght Arm] 121/63 136/58 L Pulse Oximetry 95 93 93 Oxygen Delivery Me thod Nasal Cannula Nasal Cannula Nasal Cannula Oxygen Flow Rate 2 1.5 1.5 03/04/24 19:00 03/04/24 22:55 03/04/24 22:55 Temperature 99.5 F Pulse Rate [Pulse Oximeter] 78 74 Respiratory Rate 20 20 20 Blood Pressure [Le ft Arm] Blood Pressure [Ri ght Arm] 112/54 L Pulse Oximetry 93 93 Oxygen Delivery Me thod Nasal Cannula Nasal Cannula Oxygen Flow Rate 1.5 1.5 03/04/24 22:55 03/05/24 03:00 03/05/24 07:50 Temperature 99.4 F 99.9 F H 98.9 F Pulse Rate [Pulse Oximeter] 74 84 86 Respiratory Rate 20 20 28 H Blood Pressure [Le ft Arm] Blood Pressure [Ri ght Arm] 138/85 137/69 142/72 H Pulse Oximetry 93 94 90 Oxygen Delivery Me thod Nasal Cannula Nasal Cannula Room Air Oxygen Flow Rate 1.5 1.5 03/05/24 07:50 03/05/24 07:50 03/05/24 11:09 Temperature 99.8 F H Pulse Rate [Pulse Oximeter] 86 78 Respiratory Rate 28 H 28 H 26 H Blood Pressure [Le ft Arm] 122/57 L Blood Pressure [Ri ght Arm] Pulse Oximetry 90 90 Oxygen Delivery Me thod Room Air Room Air Oxygen Flow Rate Labs/Imaging Labs Labs: White blood cell count remains elevated at 17. CRP is significantly elevated at 39. Progress Note:A&P Assessment and plan (1) Hypoxia: Status: Acute (2) Community acquired pneumonia: Status: Acute (3) Pleural effusion, left: Status: Acute (4) Incarcerated inguinal hernia: Status: Acute Plan The patient is an 83-year-old female with likely a pneumonia and pleural effusion with significant pleuritic chest pain. She also has an incarcerated left inguinal hernia containing bowel. This continues to appear asymptomatic though she was mildly tender she stated today when I pressed on it. - continue antibiotics and pulmonary cares. -certainly again this incarcerated hernia is concerning, however in the setting of pneumonia, would like to avoid fixing this acutely. I again explained to the patient and her that if she were to develop worsening pain of the hernia or if it were obstructive well inpatient, I would recommend taking her to the operating room despite having pneumonia. -she has not had a bowel movement since the morning of admission. Will continue to monitor this. -could also consider repeat imaging if there is concern for obstruction.
[2024-03-05 12:12] LABS: NT Pro B Type NatriureticPept* 1050 pg/mL
[2024-03-05 15:27] VITALS: BP 132/68; PULSE 78; RESP 22; TEMP 37; O2SAT 91
[2024-03-05 16:00] LABS: Rheumatoid Factor <10 IU/mL (0-14)
--- NOTE | 2024-03-05 18:07 | PC.NURSE ---
End of Shift: Patient pleasant and cooperative. Patient vitally stable, lungs diminished, BS WNL, IV SL and intact. Patient rates body pain at most 9/10, only scheduled pain meds given. Patient SBA/walker. Patient tolerating regular, and urinating well. Patient has been up in chair all shift. Patient on RA while awake during the day, otherwise at most 1 L when sleeping.
[2024-03-05 20:30] VITALS: BP 115/71; PULSE 76; RESP 20; TEMP 36.9; O2SAT 92
[2024-03-06] VITALS (11 sets, daily range): BP systolic 132–166; BP diastolic 68–82; PULSE 79–89; RESP 18–20; TEMP 36.5–37.5; O2SAT 90–92
[2024-03-06 00:35] LABS: Anti-Nuclear Ab(ANA)IgG ELISA None Detected (None Detected)
[2024-03-06 06:28] LABS: Hematocrit 37.6 % (33.0-51.0); Hemoglobin* 12.1 gm/dL (12.0-16.0); Mean Corpuscular HGB Conc 32 gm/dL (32-36); Mean Corpuscular Hemoglobin 32 pg (26-34); Mean Corpuscular Volume 100 fL (80-100); Platelet Count* 339 K/uL (140-440); Red Blood Count 3.77 m/uL (4.00-5.20); White Blood Count* 15.61 K/uL (4.50-11.00)
[2024-03-06 06:29] LABS: Slide Review Reflex No
[2024-03-06 06:36] LABS: Chloride* 104 mmol/L (96-114); Potassium* 3.7 mmol/L (3.6-5.1); Sodium* 139 mmol/L (135-149)
[2024-03-06 06:39] LABS: Anion Gap 5 mEq/L (7-15); Blood Urea Nitrogen* 14 mg/dL (7-30); Carbon Dioxide* 30 mmol/L (20-32); Creatinine* 0.4 mg/dL (0.5-1.5); Est. Creatinine Clearance* 35.52; Estimated Glomerular Filt Rate 97 ml/min
[2024-03-06 06:40] LABS: Calcium* 8.7 mg/dL (8.4-10.6); Glucose* 96 mg/dL (60-115)
--- NOTE | 2024-03-06 07:00 | PC.NURSE ---
END OF SHIFT NOTE: PT PLEASANT AND COOPERATIVE. A&Ox4. DENIES CP & N/V. PT REPORTS SOB ON EXERTION.?AMBULATES IN ROOM WITH SBA/INDEPENDENT WITH WALKER. VSS ON RA; AFEBRILE. CALL LIGHT WITHIN PT?S REACH.?
[2024-03-06] MEDS: CELECOXIB 200 MG CAPSULE PO (07:57)
[2024-03-06] MEDS: predniSONE 20 MG TABLET PO (07:57)
[2024-03-06] MEDS: cefTRIAXone 1 GM in 0.9 % SODIUM CHLORIDE Mini-bag 100 ML IVPB (07:57)
[2024-03-06] MEDS: AMLODIPINE 5 MG TABLET PO (07:57)
[2024-03-06] MEDS: SENNOSIDES/DOCUSATE TABLET 1 TAB PO (07:57)
[2024-03-06] MEDS: ACETAMINOPHEN 650 MG TABLET ER PO (07:58)
[2024-03-06] MEDS: SODIUM CHLORIDE 0.9 % (FLUSH) 10 ML SYRINGE 5 ML IVF ×2 (07:58→21:57)
[2024-03-06] MEDS: polyethylene glycoL 3350 17 GM PACK PO (08:15)
[2024-03-06] MEDS: BENZOCAINE/MENTHOL 1 EACH LOZENGE MUCOUS MEM (08:43)
[2024-03-06] MEDS: AZITHROMYCIN 250 MG TABLET 500 MG PO (09:46)
--- NOTE | 2024-03-06 12:33 | P.IMPN_ITS ---
Progress Note: A&P Assessment and plan (1) Community acquired pneumonia: Problem details: 2 CTs read by 2 different radiologists, documenting left lower lobe consolidation, atelectasis, small effusion Leukocytosis with left shift on admission - just starting to trend down. Received one dose of steroid on admission, restarting this 03/05 CRP continues to trend up - no new or worsening symptoms, no fevers. Antibiotics started 24 hours ago Procalcitonin negative. Strep pneumo/Legionella negative Hypoxic, intermittent tachypnea, requiring O2 supplementation, currently <1 L per NC, continue to wean as able IV ceftriaxone and azithromycin, monitoring response Encourage incentive spirometry, aerobika, ambulation - 03/06 symptoms of back and pleuritic pain as well as SOB are improving. Hypoxic with ambulation, good recovery. Continue ceftriaxone and azithromycin. RT to do home O2 assessment tomorrow. Possible d/c home tomorrow. Status: Acute (2) Hypoxia: Problem details: In setting of suspected pneumonia - managing with antibiotics, pleural effusion, atelectasis Symptomatic pleuritic pain - managing with steroids Continue supplemental oxygen as needed, weaning as able VBG, trop unremarkable on admission BNP 362, TTE (do not see previous results) ordered for further investigation Status: Acute (3) Back pain: Problem details: Patient has had 2 episodes of severe left back pain extending from the left shoulder down to the left buttock. Currently pleuritic in nature Ddx include pneumonia, atypical polymyalgia rheumatica and atypical rheumatoid arthritis with the left pleural effusion Pending CCP antibody, IgG, IgA, RF, JOSEFA Working diagnosis during this admission currently pleuritic pain in setting of community-acquired pneumonia. Antibiotics initiated as above, monitoring response Continue scheduled Tylenol, oxycodone prn, restarted prednisone 03/05 for 5 day course Status: Acute (4) Pleural effusion, left: Problem details: Small left pleural effusion. With consolidation noted. Manage as community- acquired pneumonia as above, monitoring response ECHO ordered Status: Acute (5) Incarcerated inguinal hernia: Problem details: Remains asymptomatic. General surgery, Dr. Mac, consulted. Discussed, will manage pneumonia during hospital course. Outpatient follow-up with General surgery Monitoring for new or worsening symptoms during hospitalization - contact General Surgery if concerns Status: Acute (6) Hypertension: Problem details: Continue amlodipine Status: Chronic Subjective Date Seen: 08/07/24 Interval history: Mariposa is feeling better overall. She is having less pain and less SOB than she did when she came into the hospital. Exam Narrative: Exam Narrative: General: No acute distress. Awake, alert, oriented. No pallor. No jaundice. Oropharynx: Clear. Mucous membranes moist. Cardiovascular: Regular rate and rhythm. No murmurs, gallops, or rubs. Respiratory: Clear to auscultation bilaterally. No wheezes or crackles. Abdomen: Bowel sounds present, soft, nondistended, nontender. Const: Vital Signs, click to edit/add: Vital Signs - 24 hr 03/05/24 15:27 03/05/24 15:27 03/05/24 15:27 Temperature 98.6 F Pulse Rate [Pulse Oximeter] 78 78 Respiratory Rate 22 22 22 Blood Pressure [Le ft Arm] 132/68 Blood Pressure [Ri ght Arm] Pulse Oximetry 91 91 Oxygen Delivery Me thod Nasal Cannula Nasal Cannula Oxygen Flow Rate 0.5 0.5 03/05/24 20:30 03/06/24 00:50 03/06/24 00:50 Temperature 98.4 F Pulse Rate [Pulse Oximeter] 76 89 Respiratory Rate 20 20 20 Blood Pressure [Le ft Arm] Blood Pressure [Ri ght Arm] 115/71 Pulse Oximetry 92 92 Oxygen Delivery Me thod Room Air Room Air Oxygen Flow Rate 03/06/24 00:50 03/06/24 03:40 03/06/24 07:45 Temperature 97.8 F 97.7 F Pulse Rate [Pulse Oximeter] 89 81 80 Respiratory Rate 20 18 20 Blood Pressure [Le ft Arm] 132/68 Blood Pressure [Ri ght Arm] 166/81 H 142/82 H 145/75 H Pulse Oximetry 92 90 90 Oxygen Delivery Me thod Room Air Room Air Room Air Oxygen Flow Rate 03/06/24 09:00 Temperature Pulse Rate [Pulse Oximeter] Respiratory Rate 18 Blood Pressure [Le ft Arm] Blood Pressure [Ri ght Arm] Pulse Oximetry 90 Oxygen Delivery Me thod Room Air Oxygen Flow Rate Labs Labs: Laboratory Results - last 24 hr 03/03/24 03/06/24 08:25 05:56 WBC 15.61 H RBC 3.77 L Hgb 12.1 Hct 37.6 MCV 100 MCH 32 MCHC 32 Plt Count 339 Sodium 139 Potassium 3.7 Chloride 104 Carbon Dioxide 30 Anion Gap 5 L BUN 14 Creatinine 0.4 L Estimated Creat Clear 35.52 Estimated GFR 97 Glucose 96 Calcium 8.7 C-Reactive Protein 38.0 H Fld JOSEFA IgG SUZI None Detected Rheum Factor (Ref Lab) <10
--- NOTE | 2024-03-06 12:45 | PM.GSPN ---
Subjective Subjective Date Seen: 03/06/24 Interval history: Mariposa feels better overall. She had a bowel movement today. Feels her breathing is getting better though she still have some discomfort. Fever curve is better. Exam Narrative: Exam Narrative: General: No acute distress Abdomen: Mildly protuberant but soft and nontender. Groin hernia remains nontender but non-reducible. Const: Vital Signs, click to edit/add: Vital Signs - 24 hr 03/05/24 15:27 03/05/24 15:27 03/05/24 15:27 Temperature 98.6 F Pulse Rate [Pulse Oximeter] 78 78 Respiratory Rate 22 22 22 Blood Pressure [Le ft Arm] 132/68 Blood Pressure [Ri ght Arm] Pulse Oximetry 91 91 Oxygen Delivery Me thod Nasal Cannula Nasal Cannula Oxygen Flow Rate 0.5 0.5 03/05/24 20:30 03/06/24 00:50 03/06/24 00:50 Temperature 98.4 F Pulse Rate [Pulse Oximeter] 76 89 Respiratory Rate 20 20 20 Blood Pressure [Le ft Arm] Blood Pressure [Ri ght Arm] 115/71 Pulse Oximetry 92 92 Oxygen Delivery Me thod Room Air Room Air Oxygen Flow Rate 03/06/24 00:50 03/06/24 03:40 03/06/24 07:45 Temperature 97.8 F 97.7 F Pulse Rate [Pulse Oximeter] 89 81 80 Respiratory Rate 20 18 20 Blood Pressure [Le ft Arm] 132/68 Blood Pressure [Ri ght Arm] 166/81 H 142/82 H 145/75 H Pulse Oximetry 92 90 90 Oxygen Delivery Me thod Room Air Room Air Room Air Oxygen Flow Rate 03/06/24 09:00 Temperature Pulse Rate [Pulse Oximeter] Respiratory Rate 18 Blood Pressure [Le ft Arm] Blood Pressure [Ri ght Arm] Pulse Oximetry 90 Oxygen Delivery Me thod Room Air Oxygen Flow Rate Labs/Imaging Labs Labs: White blood cell count is down to 15. CRP is down to 38 from 39. Progress Note:A&P Assessment and plan (1) Hypoxia: Status: Acute (2) Community acquired pneumonia: Status: Acute (3) Incarcerated inguinal hernia: Status: Acute (4) Pleural effusion, left: Status: Acute (5) Back pain: Status: Acute Plan The patient is an 83-year-old female with left-sided pneumonia and incarcerated left inguinal hernia. She is markedly improved today. Fortunately she has been having bowel movements and therefore is not obstructed from her hernia. I do recommend that this hernia be repaired once she has recovered from her acute respiratory illness, or of course sooner if she were to develop obstruction or strangulation. The patient understands that this would be evident by increased pain at the site and or abdominal pain, nausea and vomiting. She may discharge home when she is deemed medically appropriate by the hospitalist. She can follow up with me as an outpatient in 2 weeks.
--- NOTE | 2024-03-06 14:33 | CRLHL7_ITS ---
For Patients: As a result of the Century Cures Act, medical imaging exams and procedure reports are released immediately into your electronic medical record. You may view this report before your referring provider. If you have questions, please contact your health care provider. INDICATIONS: Pneumonia follow-up. Difficulty swallowing. TECHNIQUE: CT chest was acquired with 75 cc of Isovue 370 IV contrast. COMPARISON: CT chest with contrast 03/03/2024. FINDINGS: Small left pleural effusion has slightly increased. No right pleural effusion or pericardial effusion. Calcified nodes consistent with prior granulomatous disease. No pathologic lymphadenopathy. Aortic atherosclerosis. Thoracic aorta and main pulmonary arteries are normal in caliber. Coronary artery calcifications. Heart size is within normal limits. Soft tissues of the thoracic wall are unremarkable. No pneumothorax. Central airways are patent. Dense opacities in the posterior left lower lobe have slightly increased. Dense opacity in the posterior left upper lobe are similar. Mild scarring or atelectasis in the right middle lobe is unchanged. Visualized upper abdomen is unremarkable. Degenerative changes of the spine. No acute or suspicious osseous abnormality. IMPRESSION: Small left pleural effusion has slightly increased. Left lower lobe atelectasis or airspace disease has also slightly increased. Dictated by Daniel Mendes MD @ 03/06/2024 3:52:10 PM Please note that all CT scans at this facility use dose modulation, iterative reconstruction, and/or weight-based dosing when appropriate to reduce radiation dose to as low as reasonably achievable. Dictated by: Daniel Mendes MD @ 03/06/2024 15:53:00 (Electronically Signed)
[2024-03-06 17:51] LABS: CCP Antibody, IgG and IgA 20 Units (0-19)
--- NOTE | 2024-03-06 19:18 | PC.NURSE ---
End of Shift: The patient is alert and orientated, VS noted to be hypertensive, O2 >90% on RA at rest.... with activity she is noted to desaturate with ambulation 85-86%. SOB with exertion. Productive cough was noted this afternoon after drinking and eating. The patient stated that this has worsened, MD was notified... repeat chest ct completed and speech consult was ordered for tomorrow. SBA... calls appropriately. LAURA GORE BSN
[2024-03-07 03:25] VITALS: O2SAT 89
[2024-03-07 03:30] VITALS: BP 145/74; PULSE 82; RESP 22; TEMP 37.2; O2SAT 92
--- NOTE | 2024-03-07 06:48 | PC.NURSE ---
End of shift note [id number]: Pt alert & oriented x 4 and able to make needs known. She transfers/ambulates with SBA and has been denying pain when asked. Pt has been denying pain when at rest, uses Aqua K pad for comfort. Sputum noted to be clear/white/creamy in color. Pt refused Tylenol at HS as she continues to c/o difficulty swallowing. MD previously notified on 03/06/24. IS encouraged as lung sounds remain diminished bilaterally though pt only able to achieve 500 mL inspiratory volume. IV to L hand/wrist patent and SL. Oxygen worn at 1 LPM for part of the night as O2 sat was noted to be 89% on RA at rest. ?
[2024-03-07 06:57] LABS: Hematocrit 38.7 % (33.0-51.0); Hemoglobin* 12.4 gm/dL (12.0-16.0); Mean Corpuscular HGB Conc 32 gm/dL (32-36); Mean Corpuscular Hemoglobin 32 pg (26-34); Mean Corpuscular Volume 99 fL (80-100); Platelet Count* 397 K/uL (140-440); Red Blood Count 3.93 m/uL (4.00-5.20); White Blood Count* 13.25 K/uL (4.50-11.00)
[2024-03-07 07:08] LABS: Chloride* 105 mmol/L (96-114); Potassium* 3.6 mmol/L (3.6-5.1); Sodium* 139 mmol/L (135-149)
[2024-03-07 07:11] LABS: Creatinine* 0.5 mg/dL (0.5-1.5); Est. Creatinine Clearance* 35.52; Estimated Glomerular Filt Rate 92 ml/min
[2024-03-07 07:12] LABS: Anion Gap 6 mEq/L (7-15); Blood Urea Nitrogen* 12 mg/dL (7-30); Calcium* 8.8 mg/dL (8.4-10.6); Carbon Dioxide* 28 mmol/L (20-32); Glucose* 97 mg/dL (60-115)
[2024-03-07 07:19] LABS: Slide Review Reflex No
[2024-03-07 07:48] LABS: C Reactive Protein* 29.6 mg/dL (0.5-1.0)
[2024-03-07 08:14] VITALS: BP 143/76; PULSE 85; RESP 20; TEMP 36.7; O2SAT 92
[2024-03-07] MEDS: AMLODIPINE 5 MG TABLET PO (08:17)
[2024-03-07] MEDS: AZITHROMYCIN 250 MG TABLET 500 MG PO (08:17)
[2024-03-07] MEDS: predniSONE 20 MG TABLET PO (08:17)
[2024-03-07] MEDS: CELECOXIB 200 MG CAPSULE PO (08:18)
[2024-03-07] MEDS: SODIUM CHLORIDE 0.9 % (FLUSH) 10 ML SYRINGE 5 ML IVF (08:18)
[2024-03-07 09:00] VITALS: RESP 18; O2SAT 91
[2024-03-07 10:38] VITALS: O2SAT 90; O2SAT 92
--- NOTE | 2024-03-07 10:48 | P.IMPN_ITS ---
Progress Note: A&P Assessment and plan (1) Community acquired pneumonia: Problem details: 2 CTs read by 2 different radiologists, documenting left lower lobe consolidation, atelectasis, small effusion Leukocytosis with left shift on admission - just starting to trend down. Received one dose of steroid on admission, restarting this 03/05 CRP continues to trend up - no new or worsening symptoms, no fevers. Antibiotics started 24 hours ago Procalcitonin negative. Strep pneumo/Legionella negative Hypoxic, intermittent tachypnea, requiring O2 supplementation, currently <1 L per NC, continue to wean as able IV ceftriaxone and azithromycin, monitoring response Encourage incentive spirometry, aerobika, ambulation - 03/06 symptoms of back and pleuritic pain as well as SOB are improving. Hypoxic with ambulation, good recovery. - 03/07 RT assessed for home oxygen need, maintaining saturations low 90 at rest with quick recovery with ambulation, no recommendation for home oxygen. WBC trending down, CRP trending down Status: Acute (2) Hypoxia: Problem details: In setting of suspected pneumonia - managing with antibiotics, pleural effusion, atelectasis - improving Symptomatic pleuritic pain - managing with steroids Continue supplemental oxygen as needed, weaning as able VBG, trop unremarkable on admission BNP 362 TTE 03/06/24 shows normal wall thickness, normal global systolic function with EF 60-65%. Right ventricular cavity size is normal, global systolic RV function is normal. Aortic valve is trileaflet sclerotic, no stenosis or trivial regurgitation. Mitral valve is sclerotic, trace mitral regurgitation Assessed by RT, no home oxygen required Status: Acute (3) Back pain: Problem details: Patient has had 2 episodes of severe left back pain extending from the left shoulder down to the left buttock. Currently pleuritic in nature Ddx include pneumonia, atypical polymyalgia rheumatica and atypical rheumatoid arthritis with the left pleural effusion Pending CCP antibody, IgG, IgA, RF, JOSEFA Working diagnosis during this admission currently pleuritic pain in setting of community-acquired pneumonia. Antibiotics initiated as above, monitoring response Continue scheduled Tylenol, oxycodone prn, restarted prednisone 03/05 for 5 day course Status: Acute (4) Pleural effusion, left: Problem details: Small left pleural effusion. With consolidation noted. Manage as community- acquired pneumonia as above, monitoring response ECHO as above Repeat CT shows slight increase in pleural effusion as well as slight increase in atelectasis airspace disease Status: Acute (5) Incarcerated inguinal hernia: Problem details: Remains asymptomatic. General surgery, Dr. Mac, consulted. Discussed, will manage pneumonia during hospital course. Outpatient follow-up with General surgery Monitoring for new or worsening symptoms during hospitalization - contact General Surgery if concerns Status: Acute (6) Hypertension: Problem details: Continue amlodipine Status: Chronic (7) Dysphagia: Problem details: Onset evening of 03/05/2024. Previous history of food occasionally getting stuck. Now spitting up even saliva [employer] assessed, questioning esophageal etiology, recommending ENT. Recommending soft diet or anything tolerated until able to be evaluated by ENT, possibly Monday ENT consult Rapid strep ordered Status: Acute Time Spent With Patient Total time spent: Total time spent caring for the patient today was 45 minutes. This includes time spent for the visit reviewing the chart, time spent during the visit, time spent after the visit and documentation and planning in coordination of care. Subjective Date Seen: 03/07/24 Interval history: Patient is seen with at bedside today. Sitting up in a chair. Initially tells me she is not feeling much better, however, when we compare this to how she felt when she came in she does admit there has been significant improvement. Continues to have left-sided posterior rib cage pain, but improved. The evening of Monday, developed pain with swallowing. Feels better to spit up even saliva. Has remained afebrile. No Nausea vomiting. Exam Narrative: Exam Narrative: PHYSICAL EXAM General: Pleasant, conversant, NAD Cardiovascular: RRR, S1S2. No pitting edema Pulmonary: CTA without rhonchi, rales, expiratory wheezes. No dyspnea on room air this morning Abdominal: Soft, nondistended, NTTP Neurological: Alert, answering questions appropriately, cranial nerves intact, no focal findings Extremities: No gross joint deformity or swelling. AROMI. Neurovascularly intact Skin: Warm, dry. Const: Vital Signs, click to edit/add: Vital Signs - 24 hr 03/06/24 12:00 03/06/24 15:00 03/06/24 15:39 Temperature 99.5 F 98.3 F Pulse Rate [Pulse Oximeter] 83 85 Respiratory Rate 20 18 20 Blood Pressure [Le ft Arm] 145/70 H 141/70 H Blood Pressure [Ri ght Arm] Pulse Oximetry 90 90 92 Oxygen Delivery Me thod Room Air Room Air Room Air Oxygen Flow Rate 03/06/24 19:29 03/06/24 23:00 03/06/24 23:46 Temperature 97.7 F Pulse Rate [Pulse Oximeter] 82 79 Respiratory Rate 18 18 18 Blood Pressure [Le ft Arm] Blood Pressure [Ri ght Arm] 134/69 Pulse Oximetry 92 90 Oxygen Delivery Me thod Room Air Room Air Oxygen Flow Rate 03/06/24 23:47 03/07/24 03:25 03/07/24 03:30 Temperature 98.4 F 98.9 F Pulse Rate [Pulse Oximeter] 79 82 Respiratory Rate 18 22 Blood Pressure [Le ft Arm] Blood Pressure [Ri ght Arm] 150/77 H 145/74 H Pulse Oximetry 90 89 92 Oxygen Delivery Me thod Room Air Room Air Nasal Cannula Oxygen Flow Rate 1 03/07/24 08:14 03/07/24 09:00 Temperature 98.0 F Pulse Rate [Pulse Oximeter] 85 Respiratory Rate 20 18 Blood Pressure [Le ft Arm] 143/76 H Blood Pressure [Ri ght Arm] Pulse Oximetry 92 91 Oxygen Delivery Me thod Room Air Room Air Oxygen Flow Rate Labs Labs: Laboratory Results - last 24 hr 03/03/24 03/07/24 08:25 06:14 WBC 13.25 H RBC 3.93 L Hgb 12.4 Hct 38.7 MCV 99 MCH 32 MCHC 32 Plt Count 397 Sodium 139 Potassium 3.6 Chloride 105 Carbon Dioxide 28 Anion Gap 6 L BUN 12 Creatinine 0.5 Estimated Creat Clear 35.52 Estimated GFR 92 Glucose 97 Calcium 8.8 C-Reactive Protein 29.6 H CCP IgG/IgA Ab 20 H
[2024-03-07 11:00] VITALS: BP 142/79; PULSE 80; RESP 18; TEMP 36.8; O2SAT 91
--- NOTE | 2024-03-07 11:24 | CRLHL7_ITS ---
For Patients: As a result of the Century Cures Act, medical imaging exams and procedure reports are released immediately into your electronic medical record. You may view this report before your referring provider. If you have questions, please contact your health care provider. INDICATION: Difficulty swallowing TECHNIQUE: Modified barium swallow. Fluoroscopic time 1 minute 9 seconds. COMPARISON: CT soft tissue neck same day FINDINGS/IMPRESSION: Small amount of barium within yogurt and a small amount Gastrografin administered. Inability to clear contrast beyond the cervical esophagus. The lower oropharynx is distended. No aspiration. Direct visualization with EGD recommended. Called to Dr. Schumacher following the completion of the exam. Dictated by Yonatan Kay MD @ 03/08/2024 5:40:28 AM (Electronically Signed)
--- NOTE | 2024-03-07 11:24 | CRLHL7_ITS ---
For Patients: As a result of the Century Cures Act, medical imaging exams and procedure reports are released immediately into your electronic medical record. You may view this report before your referring provider. If you have questions, please contact your health care provider. INDICATION: Dysphagia. COMPARISON: None. TECHNIQUE: Noncontrast CT soft tissues neck. FINDINGS: Normal bilateral parotid and submandibular glands. Atrophic thyroid gland. Scattered small normal-sized cervical lymph nodes bilaterally. No supraclavicular superior mediastinal adenopathy. No enlarged lymph nodes in the partially visualized axilla. Nasopharynx and oropharynx are clear. No inflammation within the paravertebral fat pads are Rich ritual space. Normal thickness of the epiglottis. Normal glottis was symmetric vocal cords. Airway is widely patent. Partially visualized small pleural effusion or atelectasis at the medial left posterior lung. Tiny calcified granuloma left upper lobe. Normal alignment of the cervical spine. Cervical spondylosis. No prevertebral soft tissue swelling. Visualized paranasal sinuses and mastoid air cells are clear. Visualized orbits are unremarkable. IMPRESSION: 1. No adenopathy. 2. Normal deep soft tissues of the neck. 3. Cervical spondylosis. 4. No prevertebral soft tissue swelling Please note that all CT scans at this facility use dose modulation, iterative reconstruction, and/or weight-based dosing when appropriate to reduce radiation dose to as low as reasonably achievable. Dictated by Dayne Rangel MD @ 03/07/2024 12:35:23 PM (Electronically Signed)
--- NOTE | 2024-03-07 13:03 | P.DS_ITS ---
DS: Providers Provider Date Seen: 03/07/24 Date of admission: 03/04/24 09:32 Primary care physician: Piero Vega MD Admitting Clinician: Marie Shane MD Consults: 03/03/24 11:18 Consult to Physician [CONS] Urgent Comment: Dr. bates Consulting Provider: Laura Bates Has provider been notified: Yes 03/03/24 13:01 Consult to Physical Therapy [CONS] Routine Comment: Reason(s) for PT Consult:: Evaluate Ambulation Any Restrictions?:: No Restrictions 03/06/24 14:33 Consult to Speech Therapy [CONS] Routine Comment: Reason(s) for Speech Consult:: Swallowing Difficulty 03/07/24 08:00 Consult to Respiratory Therapy [CONS] Routine Comment: Reason(s) for RT Consult:: Consult 03/07/24 11:04 Consult to Physician [CONS] Routine Comment: Onset dsyphagia 03/05. OCCASIONAL CAREGIVER assessed - ?esophageal Consulting Provider: Manolo Ray Has provider been notified: No Attending Physician on discharge: Goldie Schumacher [facility], [facility] Date of Discharge: 03/07/24 DS: Diagnosis Discharge Diagnosis (1) Community acquired pneumonia: Status: Acute Problem details: 2 CTs read by 2 different radiologists, documenting left lower lobe consolidation, atelectasis, small effusion Leukocytosis with left shift on admission - just starting to trend down. Received one dose of steroid on admission, restarting this 03/05 CRP continues to trend up - no new or worsening symptoms, no fevers. Antibiotics started 24 hours ago Procalcitonin negative. Strep pneumo/Legionella negative Hypoxic, intermittent tachypnea, requiring O2 supplementation, currently <1 L per NC, continue to wean as able IV ceftriaxone and azithromycin, monitoring response Encourage incentive spirometry, aerobika, ambulation - 03/06 symptoms of back and pleuritic pain as well as SOB are improving. Hypoxic with ambulation, good recovery. - 03/07 RT assessed for home oxygen need, maintaining saturations low 90 at rest with quick recovery with ambulation, no recommendation for home oxygen. WBC trending down, CRP trending down (2) Hypoxia: Status: Acute Problem details: In setting of suspected pneumonia - managing with antibiotics, pleural effusion, atelectasis - improving Symptomatic pleuritic pain - managing with steroids Continue supplemental oxygen as needed, weaning as able VBG, trop unremarkable on admission BNP 362 TTE 03/06/24 shows normal wall thickness, normal global systolic function with EF 60-65%. Right ventricular cavity size is normal, global systolic RV function is normal. Aortic valve is trileaflet sclerotic, no stenosis or trivial regurgitation. Mitral valve is sclerotic, trace mitral regurgitation Assessed by RT, no home oxygen required (3) Back pain: Status: Acute Problem details: Patient has had 2 episodes of severe left back pain extending from the left shoulder down to the left buttock. Currently pleuritic in nature Ddx include pneumonia, atypical polymyalgia rheumatica and atypical rheumatoid arthritis with the left pleural effusion Pending CCP antibody, IgG, IgA, RF, JOSEFA Working diagnosis during this admission currently pleuritic pain in setting of community-acquired pneumonia. Antibiotics initiated as above, monitoring response Continue scheduled Tylenol, oxycodone prn, restarted prednisone 03/05 for 5 day course (4) Pleural effusion, left: Status: Acute Problem details: Small left pleural effusion. With consolidation noted. Manage as community-ac quired pneumonia as above, monitoring response ECHO as above Repeat CT shows slight increase in pleural effusion as well as slight increase in atelectasis airspace disease (5) Incarcerated inguinal hernia: Status: Acute Problem details: Remains asymptomatic. General surgery, Dr. Bates, consulted. Discussed, will manage pneumonia during hospital course. Outpatient follow-up with General surgery Monitoring for new or worsening symptoms during hospitalization - contact General Surgery if concerns (6) Hypertension: Status: Chronic Problem details: Continue amlodipine (7) Dysphagia: Status: Acute Problem details: Onset evening of 03/05/2024. Reports food getting stuck at sternal notch then pain which radiates to both ears when attempting to swallow. Currently even spitting up saliva. Previous history of food occasionally getting stuck. OCCASIONAL CAREGIVER assessed, questioning esophageal etiology, recommending ENT. Recommending soft diet or anything tolerated until able to be evaluated by ENT, possibly Monday ENT consult- recommending CT soft tissue neck and barium swallow. CT soft tissue neck shows no adenopathy, normal deep soft tissues of the neck, cervical spondylosis. No prevertebral soft tissue swelling. Received call from radiologist, patient unable to swallow contrast for barium study. Recommending scope. Scope capabilities including ability to repair any possible perforation not available at this facility per ART Otero, recommending transfer to appropriate facility. Rapid strep ordered for completeness DS: Summary Hospital Course Hospital Course: [age] year old female was admitted to the medical floor for management pleuritic left-sided pain. Course of care and details as noted above. Patient was initiated on IV antibiotics as well as oral prednisone for suspected community-acquired pneumonia and pleuritic pain with pleural effusion. Symptomatically, clinically showing improvement. However on the evening of 03/05, patient developed dysphagia described as any solid or liquid, including saliva stopping at the sternal notch, followed by pain with attempted swallowing. CT soft tissue neck was unremarkable. Unable to complete a barium swallow study. Recommended scope for further evaluation and management. As unavailable at this facility, in setting of risk for perforation and repair, patient is transfer to acute care hospital for further management. Currently, no bed availability at [facility]. Discussed with ART Whitlock, who believes it is reasonable for patient to be transferred for upper scope within the next 24 hours. Currently, [facility] bed [facility]. Discussed with Dr. Zafar, TeleHospitalist Jelly, accepting for transfer. Remainder of chronic medical comorbidities were monitored and managed with home medications. Status at Discharge Overall status at discharge: patient is progressing back to baseline Time Spent with Patient Time attestation: Total time spent providing and/or coordinating discharge services: Time spent: Greater than 30 minutes Exam Narrative: Exam Narrative: PHYSICAL EXAM General: Pleasant, conversant, NAD Cardiovascular: RRR Pulmonary: No dyspnea Neurological: Alert, answering questions appropriately Skin: Warm, dry. Const: Vital Signs, click to edit/add: Vital Signs - 24 hr 03/06/24 15:00 03/06/24 15:39 03/06/24 19:29 Temperature 98.3 F 97.7 F Pulse Rate [Pulse Oximeter] 85 82 Respiratory Rate 18 20 18 Blood Pressure [Le ft Arm] 141/70 H Blood Pressure [Ri ght Arm] 134/69 Pulse Oximetry 90 92 92 Oxygen Delivery Me thod Room Air Room Air Room Air Oxygen Flow Rate 03/06/24 23:00 03/06/24 23:46 03/06/24 23:47 Temperature 98.4 F Pulse Rate [Pulse Oximeter] 79 79 Respiratory Rate 18 18 18 Blood Pressure [Le ft Arm] Blood Pressure [Ri ght Arm] 150/77 H Pulse Oximetry 90 90 Oxygen Delivery Me thod Room Air Room Air Oxygen Flow Rate 03/07/24 03:25 03/07/24 03:30 03/07/24 08:14 Temperature 98.9 F 98.0 F Pulse Rate [Pulse Oximeter] 82 85 Respiratory Rate 22 20 Blood Pressure [Le ft Arm] 143/76 H Blood Pressure [Ri ght Arm] 145/74 H Pulse Oximetry 89 92 92 Oxygen Delivery Me thod Room Air Nasal Cannula Room Air Oxygen Flow Rate 1 03/07/24 09:00 Temperature Pulse Rate [Pulse Oximeter] Respiratory Rate 18 Blood Pressure [Le ft Arm] Blood Pressure [Ri ght Arm] Pulse Oximetry 91 Oxygen Delivery Me thod Room Air Oxygen Flow Rate DS: Data Data Completed and Pending Labs on day of discharge: Labs from last 24 hours 03/07/24 03/03/24 06:14 08:25 WBC 13.25 H RBC 3.93 L Hgb 12.4 Hct 38.7 MCV 99 MCH 32 MCHC 32 Plt Count 397 Sodium 139 Potassium 3.6 Chloride 105 Carbon Dioxide 28 Anion Gap 6 L BUN 12 Creatinine 0.5 Estimated Creat Clear 35.52 Estimated GFR 92 Glucose 97 Calcium 8.8 C-Reactive Protein 29.6 H CCP IgG/IgA Ab 20 H Preliminary micro results at discharge 03/06/24 09:56 Sputum Culture - Preliminary Sputum - Expectorated Sputum Imaging CT soft tissue neck: Attestation: I have reviewed the pertinent imaging results. Radiologist's impression: Noncontrast CT soft tissues neck. FINDINGS: Normal bilateral parotid and submandibular glands. Atrophic thyroid gland. Scattered small normal-sized cervical lymph nodes bilaterally. No supraclavicular superior mediastinal adenopathy. No enlarged lymph nodes in the partially visualized axilla. Nasopharynx and oropharynx are clear. No inflammation within the paravertebral fat pads are Rich ritual space. Normal thickness of the epiglottis. Normal glottis was symmetric vocal cords. Airway is widely patent. Partially visualized small pleural effusion or atelectasis at the medial left posterior lung. Tiny calcified granuloma left upper lobe. Normal alignment of the cervical spine. Cervical spondylosis. No prevertebral soft tissue swelling. Visualized paranasal sinuses and mastoid air cells are clear. Visualized orbits are unremarkable. IMPRESSION: 1. No adenopathy. 2. Normal deep soft tissues of the neck. 3. Cervical spondylosis. 4. No prevertebral soft tissue swelling CT scan - chest: Attestation: I have reviewed the pertinent imaging results. Radiologist's impression: CT chest was acquired with 75 cc of Isovue 370 IV contrast. COMPARISON: CT chest with contrast 03/03/2024. FINDINGS: Small left pleural effusion has slightly increased. No right pleural effusion or pericardial effusion. Calcified nodes consistent with prior granulomatous disease. No pathologic lymphadenopathy. Aortic atherosclerosis. Thoracic aorta and main pulmonary arteries are normal in caliber. Coronary artery calcifications. Heart size is within normal limits. Soft tissues of the thoracic wall are unremarkable. No pneumothorax. Central airways are patent. Dense opacities in the posterior left lower lobe have slightly increased. Dense opacity in the posterior left upper lobe are similar. Mild scarring or atelectasis in the right middle lobe is unchanged. Visualized upper abdomen is unremarkable. Degenerative changes of the spine. No acute or suspicious osseous abnormality. IMPRESSION: Small left pleural effusion has slightly increased. Left lower lobe atelectasis or airspace disease has also slightly increased. CTA chest: Attestation: I have reviewed the pertinent imaging results. Radiologist's impression: CT chest PE was acquired with 95 cc Isovue 370 IV contrast. COMPARISON: None. FINDINGS: Heart and vasculature: Contrast opacification of the pulmonary arterial tree is adequate. No sign of pulmonary embolism. Heart size is normal. Thoracic aorta and pulmonary artery are normal in caliber. Lungs and pleura: Small left basilar pleural effusion with adjacent atelectasis favored over infiltrate. Small consolidation in the lingula could represent chronic scarring favored over pneumonia. Small areas of scarring also present in the right lung. No suspicious nodules. There are calcified granulomas. No pneumothorax. Lymph nodes/mediastinum: No mediastinal, hilar, or axillary adenopathy. Chest wall: No masses. Upper abdomen: No acute or significant findings. Bones: Unremarkable for age. IMPRESSION: 1. No pulmonary embolism. 2. Small left basilar pleural effusion with adjacent atelectasis favored over infiltrate. Scattered areas of scarring in both lungs. 3. No other acute or specific findings to explain shortness of breath. CT abdomen pelvis: Attestation: I have reviewed the pertinent imaging results. Radiologist's impression: CT abdomen and pelvis without contrast. COMPARISON: None. FINDINGS: Lower chest: Lingular and left lower lobe atelectasis and consolidation. Small left effusion. Right basilar atelectasis. Liver: Too small low-attenuation lesion left hepatic lobe.. To characterize Gallbladder and bile ducts: No stones or inflammation. No biliary dilatation. Pancreas: Unremarkable. No mass or inflammation. Spleen: Normal in size. No masses. Adrenal glands: Normal in size. No nodules. Kidneys: No renal calculi. No hydronephrosis. 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 GI tract: Diverticulosis. Vasculature: Abdominal aorta is normal in caliber. Lymph nodes: No lymphadenopathy. Peritoneum/Abdominal Wall: Left inguinal hernia containing colon. There is fat stranding within the inguinal hernia sac. Mild diverticulitis not excluded. Bowel is otherwise unremarkable. Normal appendix. There is no obstruction visualized. Pelvis: Unremarkable. No pelvic masses. Bones: Unremarkable for age. IMPRESSION: 1. No renal calculi or hydronephrosis. 2. Diverticulosis. Small left inguinal hernia containing colon. There is fat stranding within the hernia sac. Mild diverticulitis not excluded. There is no bowel obstruction seen. Discharge Plan Discharge Disposition: [facility] Discharge Location: [facility] Date of Admission: 03/04/24 09:32 Attending Provider on Discharge: Goldie Schumacher Primary Care Provider: Piero Vega Condition: Stable Discharge Orders: Transfer of Care to Other Hospital (ORDER); Ordered 03/07/24 Ordered By: Goldie Schumacher Additional Instructions: Patient is transferred to [facility] for further evaluation and management of suspected esophageal stricture, obstruction. Gastroenterology, scope services not available. Following your hospital stay, if you develop pain in your left groin, particularly over the area of your hernia, or abdominal pain, please call or return to the emergency room for evaluation. Otherwise, outpatient follow up with General Surgery for further management recommendations of your inguinal hernia. Oxygen: No Urinary Catheter: No Drips/Lines: NS IVF @ 75ml/hr Services not available here: GI/Scope
[2024-03-07] MEDS: 0.9 % SODIUM CHLORIDE 1000 ml 1,000 ML 75 ML IV (13:53)
[2024-03-07 14:03] LABS: Strep A DNA Probe* NOT DETECTED (Not Detectd)
--- NOTE | 2024-03-07 15:52 | PC.NURSE ---
Transfer Note: The patient was transported to [facility] via non emergent EMS left the unit @ 1508, report was given. IV in L wrist. Alert and orientated, SOB with exertion otherwise VSS on RA. Reports minimal Lower Left back pain. Belongings sent with the patient and her . Bharati GORE BSN
== END 2024-03-07 15:08 | disposition short-term general hospital (02) | DRG 194 ==
LOC: ED 11:24 → MEDSURG 12:08
PROVIDERS: Family Medicine; Admitting Provider Physician Assistant; Emergency Provider Family Medicine; PCP Family Medicine; Visit Provider Family Medicine
DX: J18.9 Pneumonia, unspecified organism (principal); J91.8 Pleural effusion in other conditions classified elsewhere; K40.31 Unilateral inguinal hernia, with obstruction, without gangrene, recurrent; J98.11 Atelectasis; M54.9 Dorsalgia, unspecified; I10 Essential (primary) hypertension; R09.02 Hypoxemia; R13.10 Dysphagia, unspecified
CPT/HCPCS: 36415; 70490; 71260; 71275; 74176; 74230; 80048; 80076; 81001; 82803; 83605; 83880; 84145; 84484; 85025; 85027; 85379; 85651; 86039; 86140; 86200; 86431; 87070; 87086; 87449; 87631; 87635; 87651; 87899; 92610; 92611; 93005; 93306; 94664; 94761; 97161; 97530; 99285; A9270; G0378; J0456; J0696; J1885; J2270; J7030; J7050; J7512; Q9967

== ENCOUNTER 2024-03-07 15:02 | Outpatient (CLI) | payer MEDICARE, BC, SELFPAY | END 2024-03-07 15:03 | disposition home or self-care (01) | LOC: AMB 03-09 13:52 | PROVIDERS: PCP Family Medicine; Visit Provider Student in an Organized Health Care Education/Training Program | DX: J18.9 Pneumonia, unspecified organism (principal); R13.10 Dysphagia, unspecified | CPT/HCPCS: A0425; A0429 ==

== ENCOUNTER 2025-03-24 11:03 | Outpatient (CLI) | payer MEDICARE, BC, SELFPAY | END 2025-03-24 11:04 | disposition home or self-care (01) | PROVIDERS: PCP Family Medicine; Visit Provider Family Medicine | DX: E78.00 Pure hypercholesterolemia, unspecified (principal); I10 Essential (primary) hypertension; Z79.899 Other long term (current) drug therapy | CPT/HCPCS: 80048; 82607; 84443 ==

== ENCOUNTER 2025-04-04 10:48 | Emergency (ER) | payer MEDICARE, BC, SELFPAY ==
--- OUTSIDE RECORDS SUMMARY | 2024-05-20 08:00 | XMS_ITS ---
Author Organization [facility] Address [address] [place] [address] Care Team Providers Care Laundry Laborer Name Role Phone Niall Vega Primary Care Provider IRAIDA Matt [phone] REASON FOR VISIT Surgery 05/06 Transoral endoscopic treatment of Zenker's diverticulum Encounters Encounter Location Date Provider Diagnosis [facility] [address] [place] [address] 05/20/2024 IRAIDA PACK Plan Of Treatment No Information Progress Notes * Mariposa HENYR AnnDOB:1939 (84 yo F)Acc No.[id number]:05/20/2024 Patient: Mariposa Melendrez Provider: Francis PACK MD :1940 A ge:84 Y S ex:Female Date:05/20/2024 Address:[address] [place], [place] [id number] Pcp:Niall Vega Subjective: * Chief Complaints: * S urgery 05/06 Transoral endoscopic treatment of Zenker's diverticulum * Electronic signature of ADIS PACK MD on 04/04/2025 at 11:48 AM CDT Sign off status: Pending * Provider: Francis PACK MD Date: 1 Generated for Eve kenny/Rita/eTransmitting on: 0 04/04/2025 11:48 AM CDT
--- OUTSIDE RECORDS SUMMARY | 2024-05-28 02:30 | XMS_ITS ---
Author Organization [facility] Address [address] [place] [address] Care Team Providers Care Family Services Worker Name Role Phone Niall Vega Primary Care Provider IRAIDA Matt [phone] REASON FOR VISIT FVSD/ Transoral endoscopic treatment of zenker's diverticulum Encounters Encounter Location Date Provider Diagnosis [facility] Out[facility] [address] [id number] 05/28/2024 IRAIDA PACK Plan Of Treatment No Information Progress Notes * Mariposa HENRY AnnDOB:1939 (84 yo F)Acc No.[id number]:05/28/2024 Patient: Mariposa Melendrez [place] Provider: Francis PACK MD :1940 A ge:84 Y S ex:Female Date:05/28/2024 Address:[address] [place] [address] [address] [id number] Pcp:Niall Vega Subjective: * Chief Complaints: * F VSD/ Transoral endoscopic treatment of zenker's diverticulum * Electronic signature of ADIS PACK MD on 04/04/2025 at 11:47 AM CDT Sign off status: Pending * Provider: Francis PACK MD Date: 1 Generated for Printi ng/Faxing/eTransmitting on: 0 04/04/2025 11:47 AM CDT
--- OUTSIDE RECORDS SUMMARY | 2024-06-10 06:15 | XMS_ITS ---
Author Organization [facility] Address [address] [place] [address] Care Team Providers Care Skinning Machine Feeder Name Role Phone Niall Vega Primary Care Provider IRAIDA Matt [phone] REASON FOR VISIT Surgery 10-29 Transoral endoscopic treatment of Zenker's diverticulum Encounters Encounter Location Date Provider Diagnosis [facility] [address] [place] [address] 06/10/2024 IRAIDA PACK Plan Of Treatment No Information Progress Notes * Mariposa HENRY AnnDOB:1939 (84 yo F)Acc No.[id number]:06/10/2024 Patient: Mariposa Melendrez Provider: Francis PACK MD :1940 A ge:84 Y S ex:Female Date:06/10/2024 Address:[address] [place], [place] [id number] Pcp:Niall Vega Subjective: * Chief Complaints: * S urgery 10-29 Transoral endoscopic treatment of Zenker's diverticulum * Electronic signature of ADIS PACK MD on 04/04/2025 at 11:46 AM CDT Sign off status: Pending * Provider: Francis PACK MD Date: 1 08/10/2023 Generated for Eve kenny/Rita/eTransmitting on: 0 04/04/2025 11:46 AM CDT
--- OUTSIDE RECORDS SUMMARY | 2025-04-04 10:53 | XMS_ITS | Clinical Summary ---
Author Organization [place] Address Counts include 234 beds at the [facility] [place] [address] Care Team Providers Care Clip On Sunglasses Inspector Name Role Phone Niall Vega MD Primary Care Provider [phone] Allergies No known active allergies Medications acetaminophen (TYLENOL) 500 MG tablet Take 1,000 mg by mouth every 6 hours as needed. Active amLODIPine (NORVASC) 5 MG tablet Take 5 mg by mouth daily. 01/11/2024 Active celecoxib (CELEBREX) 200 MG capsule Take 200 mg by mouth daily. 01/22/2024 Active Social History Tobacco Use Types Packs/Day Years Used Date Smoking Tobacco: Never Smokeless Tobacco: Never Tobacco Cessation:Counseling Given: Not Answered Alcohol Use Standard Drinks/Week Comments Yes 0 (1 standard drink = 0.6 oz pur e alcohol) 1 per week Interpersonal Safety Answer Date Record ed Do you feel physically and e motionally safe where you currently live? Yes 06/04/2024 Within the past 12 months, h ave you been hit, slapped, kicked or otherwise physically hurt by someone? No 06/04/2024 Within the past 12 months, h ave you been humiliated or emotionally abused in other ways by your partner or ex-partner? No 06/04/2024 Comments No Sex and Gender Information Value Date Recorded Sex Assigned at Not on file Legal Sex Female 9:03 AM CDT Gender Identity Not on file Sexual Orientation Not on file Last Filed Vital Signs Vital Sign Reading Time Taken Comments Blood Pressure 115/58 06/04/2024 10:20 AM TIEING MACHINE OPERATOR Pulse 71 06/04/2024 10:20 AM TIEING MACHINE OPERATOR Temperature 36.4 C (97.5 F) 06/04/2024 10:20 AM TIEING MACHINE OPERATOR Respiratory Rate 16 06/04/2024 10:20 AM TIEING MACHINE OPERATOR Oxygen Saturation 93% 06/04/2024 10:20 AM TIEING MACHINE OPERATOR Inhaled Oxygen Concentration - - Weight 62.3 kg (137 lb 4.8 oz) 06/04/2024 5:54 A M TIEING MACHINE OPERATOR Height 162.6 cm (5' 4) 06/04/2024 5:54 AM TIEING MACHINE OPERATOR Body Mass Index 23.57 06/04/2024 5:54 AM TIEING MACHINE OPERATOR Plan of Treatment Health Maintenance Due Date Last Done Comments ADVANCE CARE PLANNING 1940 ANNUAL REVIEW OF HM ORDERS 1940 DEXA 1940 FALL RISK ASSESSMENT 2003 MEDICARE ANNUAL WELLNESS VISIT 2003 ZOSTER VACCINE (2 of 3) 01/17/2008 11/22/2007 RSV VACCINE (1 - 1-dose 75+ series) 2013 COVID-19 VACCINE ( - season) 2024 05/11/2021, 09/29/2020, 09/08/2020 PHQ-2 (once per calendar year) 2024 INFLUENZA VACCINE (#1) 2025 3, 05/20/2022, 05/11/2021, Additional history exists DTAP/TDAP/TD VACCINE (3 - Td or Tdap) 02/04/2030 02/05/2020, 12/07/2010, 07/07/2005, Additional history exists PNEUMOCOCCAL VACCINE 50+ YEARS Completed 12/24/2014, 11/22/2007 HPV VACCINE (No Doses Required) Completed MENINGITIS VACCINE Aged Out No longer eligible based on patient's age to complete this topic Insurance BS [employer] [facility] [employer] Advance Directives For more information, please contact: [phone] Documents on File Type Date Recorded 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 Advance Directives and Living Will 05/16/2024 Health Care Directiv e 12/16/2015 Healthcare Agents on File Name Relationship Healthcare Agent Relationship Communication Leonel Dukes Spouse Health Care Agent Gabriel Dukes Unknown [employer] Altern[employer] te Health Care Agent Flako Dukes Unknown [employer] te Health Care Agent Higinio Dukes Unknown [employer] Alterna te Health Care Agent Care Teams Clip On Sunglasses Inspector Relationship Specialty Start Date End Date Niall Vega MD [facility] [id number] [place] [id number] PCP - General Family Medicine 04/30/24
--- OUTSIDE RECORDS SUMMARY | 2025-04-04 10:53 | XMS_ITS | Patient Health Record ---
Author Organization [facility] Address [address] [place] [address] Care Team Providers Care Yarn Carrier Name Role Phone Niall Vega Primary Care Provider IRAIDA Matt Unavailable [phone] HERON KUMAR Unavailable [phone] Allergies No Known Allergies Reason For Referral No Information Medications Medication SIG (Take, Route, Frequency, Duration) Notes Start Date End Date Status amLODIPine Besylate 5 MG Tablet Oral; Duration: 90 Days Acti ve amLODIPine Besylate 5 MG Tablet Oral; Duration: 90 Days Acti ve Celecoxib 200 MG Capsule Oral; Duration: 90 Days Active Social History Tobacco Use: Social History Observation Description Date Details (start date - stop date) Never Smoker NA - NA Social History Tobacco Use: Social Info Question Answer Notes Tobacco Control (Standard) Tobacco use: Nonsmoker Problems Problem Type SNOMED Code ICD Code Onset Dates Problem Status W/U Status Risk Notes Problem Odynophagia (41053266) Odynophagia (R13.10) Active confirmed Problem Dysphagia (44111898) Pharyngoesophageal dysphagia (R13.14) Active confirmed Problem Zenker's diverticulum (842219765) Zenker's diverticulum (K22.5) Active confirmed Problem Pneumonia (152528430) Pneumonia (J18.9) Active confirmed Problem Cough (42503097) Cough (R05.9) Active confirmed Vital Signs Height-cm 162.56 cm 06/17/2024 Weight-kg 58.06 kg 06/17/2024 Height 64 in 06/17/2024 Weight 128 lbs 06/17/2024 BMI 21.97 kg/m2 06/17/2024 Encounters Encounter Location Date Provider Diagnosis [facility] [place] [address] [place] [address] 04/22/2024 IRAIDA SIRENA Pharyngoesophageal dysphagia R13.14 and Zenker's diverticulum K22.5 [facility] [address] [place] [id number] 06/04/2024 IRAIDA PACK [facility] [place] [address] [place] [address] 06/17/2024 IRAIDA PACK Zenker's diverticulu m K22.5 [facility] [address] [place] [address] 04/15/2024 HERON KUMAR [facility] [address] [place] [address] 04/26/2024 IRAIDA PACK Assessments Encounter Date Diagnosis (ICD Code) Assessment Notes Treatment Notes Treatment Clinical Notes Section Notes 04/22/2024 Pharyngoesophageal dysphagia (ICD-10 - R13.14) 04/22/2024 Zenker's diverticulu m (ICD-10 - K22.5) She has a 2.5 cm Zenker's diverticulum which is causing her dysphagia. Barium swallow from [facility] was reviewed. Recommend treatment of the Zenker's and recommended transoral endoscopic Zenker's diverticuliculotom y. We discussed the potential risks and benefits of the procedure. Discussed with her that this is done with a transoral approach with cutting the cricopharyngeus muscle and opening up the pouch but not actually removing the pouch. Most patients will have success with this approach and have much improvement of their dysphagia. We discussed there are some patients who do not have success. If those patients need additional surgeries might need an open approach. I discussed the rare risk of mediastinitis which can be life-threatening. Discussed that if she could go home same day but always a chance she needs overnight observation 06/17/2024 Zenker's diverticulu m (ICD-10 - K22.5) Uneventful routine postoperative course after endoscopic treatment of Zenker's diverticulum. She is advancing her diet and she is doing very well. She does not have any complaints of ongoing dysphagia. May follow-up as needed. Plan Of Treatment No Information Insurance Providers Payer Name Payer Address Payer Phone Subscriber Number Group Number Insured Name Patient Relationship to Insured Coverage Start Date Coverage End Date [employer]ARE [address] [address] [place], [place] [id number] Mariposa Dukes Self - patient is the insured 3 MEDICARE [address] [place] [address] [id number] Mariposa Dukes Self - patient is the insured 3 Medical (General) History Surgical History Surgery Date(Month/Year) shoulder transoral endoscopic diverticulotomy of Zenker's BD 06/04/2024 Hospitalization History Reason Date(Month/Year) Same as Surgical history
--- OUTSIDE RECORDS SUMMARY | 2025-04-04 10:53 | XMS_ITS | Clinical Summary ---
Author Organization [facility] Address [address] [place] [address] Care Team Providers Care Hair Or Beauty Salon Manager Name Role Phone Mark Murillo MD Primary Care Provider Unavail able Allergies No known active allergies Medications amLODIPine (NORVASC) 5 mg tablet Take 5 mg by mouth once daily. 4 Active celecoxib (CELEBREX) 200 mg capsule Take 200 mg by mouth once daily with a meal. 4 Active acetaminophen (Tylenol Extra Strength) 500 mg tablet Take 1,000 mg by mouth two times daily. Max acetaminophen dose: 4000mg in 24 hrs. Active Active Problems Problem Noted Date Diagnosed Date Dysphagia 03/07/2024 Social History Tobacco Use Types Packs/Day Years Used Date Smoking Tobacco: Never Smokeless Tobacco: Never Tobacco Cessation:Counseling Given: Not Answered Alcohol Use Standard Drinks/Week Comments Yes 1 (1 standard drink = 0.6 oz pur e alcohol) Social Connections Answer Date Recorded Do you often feel lonely or isolated from those around you? 0 03/07/2024 Financial Resource Strain Answer Date R ecorded Difficulty of Paying Living Expenses 3 03/07/2024 Difficulty of Paying Living Expenses Not on file 03/07/2024 Food Insecurity Answer Date Recorded Do you worry your food will run out before you are able to buy more? 1 03/07/2024 Transportation Needs Answer Date Record ed Does lack of transportation keep you from medica l appointments? 1 03/07/2024 Does lack of transportation keep you from work, meetings or getting things that you need? 1 03/07/2024 Housing Stability Answer Date Recorded What is your housing situation today? 1 03/07/2024 Interpersonal Safety Answer Date Record ed Are you being hit, kicked, p ushed or yelled at (see row info)? No 03/07/2024 Interpersonal Safety Abuse 12 - 18 Not on file 03/07/2024 Interpersonal Safety Ambulatory Vulnerability No t on file 03/07/2024 Utilities Answer Date Recorded Do you have trouble paying f or utilities (for example, heat, electricity, water, phone)? 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 Gender Identity Not on file Sexual Orientation Not on file Obstetrics History Last Filed Vital Signs Vital Sign Reading Time Taken Comments Blood Pressure 158/76 03/11/2024 8:33 AM CDT Pulse 88 03/11/2024 8:33 AM CDT Temperature 36.8 C (98.3 F) 03/11/2024 8:33 AM CDT Respiratory Rate 18 03/11/2024 8:33 AM CDT Oxygen Saturation 92% 03/11/2024 8:33 AM CDT Inhaled Oxygen Concentration - - Weight 68.1 kg (150 lb 1.6 oz) 03/10/2024 7:27 A M CDT Height - - Body Mass Index - - Plan of Treatment Health Maintenance Due Date Last Done Comments Tetanus booster 1949 Depression screening for age 12+ 1950 BMI (ht and wt on same day) for age 18+ 1956 Pneumococcal series for age 50+ (1 of 1 - PCV) 1988 Zoster (shingles) series for age 50+ (1 of 2) 1988 DEXA/DXA scan for age 65+ 2003 RSV vaccine for adults or (1 - 1-dose 75+ series) 2013 COVID-19 vaccine series ( season) 2024 05/11/2021, 09/29/2020, 09/08/2020 Influenza Vaccine (#1) 2025 Hepatitis B series for 19+ Aged Out N o longer eligible based on patient's age to complete this topic Insurance MEDICARE PART A HB ONLY [facility] [employer] [place] BLUE [place] ONLY Advance Directives * Full Code (Latest Code Status on File) Date Activated Date Inactivated Comments 03/07/2024 5:26 PM 03/11/2024 5:52 PM Question Answer Comments Code Status Discussion: Reviewed Preferences Care Teams Hair Or Beauty Salon Manager Relationship Specialty Start Date End Date Mark Murillo MD PCP - General 12/28/07
[2025-04-04 10:54] VITALS: BP 160/76; PULSE 76; RESP 16; TEMP 36.8; O2SAT 94; BMI 23.9
--- NOTE | 2025-04-04 11:15 | ED.GENADULT ---
HPI - General Adult General Chief complaint: Laceration/Wound Stated complaint: Head Laceration Time Seen by Provider: 04/04/25 11:15 History of Present Illness HPI narrative: Patient was washing floor by hand, slipped on wet floor and has subsequent laceration on right forehead. Denies LOC. Was unable to get up until her returned home 84-year-old woman presenting to the emergency department following a head injury where she has cut her forehead. As is her usual practice was washing, cleaning the house this Monday morning. She slipped in some water on the floor of the kitchen and fell striking her right side forehead. As she has been here she started to have more discomfort in her left shoulder; more sore than anything. She reports having had shoulder replacement bilaterally. Denies neck or back pain. No loss of consciousness. No nausea. No visual changes. She is not anticoagulated. No abdominal pain Related Data Home Medications ?Medication ?Instructions ?Recorded ?Confirmed acetaminophen 500 mg tablet 1,000 mg PO DAILY 03/24/25 03/24/25 (Tylenol Extra Strength) Previous Rx's ?Medication ?Instructions ?Recorded amlodipine 5 mg tablet 5 mg PO DAILY #90 tabs 03/24/25 celecoxib 200 mg capsule (Celebrex) 200 mg PO DAILY pain #90 caps 03/24/25 Allergies Allergy/AdvReac Type Severity Reaction Status Date / Time No Known Allergies Allergy Verified 04/04/25 10:53 Review of Systems Status of ROS: Reports: 6 or more systems reviewed and unremarkable except as noted in History and below [facility] Medical History Zenker's diverticulum ?K22.5 - Diverticulum of esophagus, acquired (ICD-10) Community acquired pneumonia ?J18.9 - Pneumonia, unspecified organism (ICD-10) Surgical History S/P removal of Zenker's diverticulum ?Z98.890 - Other specified postprocedural states (ICD-10) ?Z87.19 - Personal history of other diseases of the digestive system (ICD-10) 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) ?Z96.619 - Presence of unspecified artificial shoulder joint (ICD-10) 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 Code status is DNR. She does not smoke. She drinks 1 drink a week. What is your current living situation?: I presently have a place to live Problems where you live: no known problems Problems where you live details: N/A In the past 12 months, utilities in danger of being shut off: no In past 12 months, lack of transportation kept you from medical appts, meetings, work, or getting things needed for daily living: no In the past 12 mos, have been you worried that your food would run out before you had money to buy more?: never true In the past 12 mos, the food you bought just didn't last and you didn't have money to buy more?: never true Highest level of school completed/degree received: some college, no degree Smoking Status: Never smoker Do you use any of these nicotine containing products: None Second hand tobacco smoke exposure: No How often do you have a drink containing alcohol: monthly or less Alcohol type: hard liquor How many standard drinks containing alcohol do you have on a typical day: 1 or 2 How often do you have six or more drinks on one occasion: Never AUDIT-C Alcohol total score: 1 Non-prescribed substance use: denies use Caffeine: Yes (1 cup coffee daily) Are you now , , , , never or living with a partner: Social isolation score (0-1 are the most socially isolated patients): 1 How often does anyone, including family, friends and others, physically hurt you: never How often does anyone, including family, friends and others, insult or talk down to you: never How often does anyone, including family, friends and others, threaten you with harm: never How often does anyone, including family, friends and others, scream or curse at you: never Gender Identity: female Are you currently sexually active: No service: No Exam Narrative: Exam Narrative: Very pleasant. Good energy. Skin is warm and dry. There is a 1 in slightly arcing laceration apex superior in the forehead left side above brow. Not encroaching on the worship. It gaps. Bleeds lightly when manipulated. Head otherwise is atraumatic. Cranial nerves 2-12 are intact. Extraocular movements are full. Pupils are 3 mm and equal. Neck is supple nontender. Back nontender. There is some kyphosis. Palpation over the shoulders does not elicit much in way of pain. I do not appreciate any swelling. There is muscle atrophy over the shoulders. Breathing easily. Heart in regular rate and rhythm. Appears to be moving all extremities without particular difficulty. Const: Vital Signs, click to edit/add: Vital Signs - 24 hr 04/04/25 10:54 Temperature 98.2 F Pulse Rate [Pulse Oximeter] 76 Respiratory Rate 16 Blood Pressure [Ri ght Upper Arm] 160/76 H Pulse Oximetry 94 Oxygen Delivery Me thod Room Air Documenting provider has reviewed patient's vital signs: yes Course Vital Signs Vital signs: Initial Vital Signs Temperature 98.2 F 04/04/25 10:54 Temperature Source Temporal Artery Scan 04/04/25 10:54 Pulse Rate 76 04/04/25 10:54 Respiratory Rate 16 04/04/25 10:54 Blood Pressure 160/76 H 04/04/25 10:54 Blood Pressure Mean 104 04/04/25 10:54 Pulse Oximetry 94 04/04/25 10:54 Oxygen Delivery Method Room Air 04/04/25 10:54 Vital Signs Temperature 98.2 F 04/04/25 10:54 Pulse Rate 76 04/04/25 10:54 Respiratory Rate 16 04/04/25 10:54 Blood Pressure 160/76 H 04/04/25 10:54 Pulse Oximetry 94 04/04/25 10:54 Oxygen Delivery Method Room Air 04/04/25 10:54 Temperature 98.2 F 04/04/25 10:54 Pulse Rate 76 04/04/25 10:54 Respiratory Rate 16 04/04/25 10:54 Blood Pressure 160/76 H 04/04/25 10:54 Pulse Oximetry 94 04/04/25 10:54 Oxygen Delivery Method Room Air 04/04/25 10:54 Medical Decision Making MDM Narrative Medical decision making narrative: We discussed methods of repair as well as potential head imaging. Does not appear to have significant injury elsewhere. It would appear that her left shoulder took some of the impact. Appears neurologically intact. I think suturing of this laceration would be a good idea. She admits a fear of needles. Return to inject lidocaine with epinephrine. Injected a total of 1.5 mL. Tolerated well. Excellent anesthesia is achieved. Cleansed further with Shur-Clens type solution. Closed with interrupted 6 0 Ethilon sutures. Total of 4. Very good wound approximation control bleeding. Antibiotic ointment and Band-Aid placed. Tolerated quite well. Tetanus current. Mutually agreed to defer any head imaging pending other symptoms. See patient discharge plan for further discussion sutures out in 6 - 7 days. antibiotic ointment for 3 - 4 days and then to a dry dressing. ok to get wet but try not to soak while sutures are in. for further scar reduction/wound healing if desired -- after the scab falls off, can apply daily vitamin e oil or something like maderma or silicone-containing ointments or bandaids daily. especially protect from sun exposure for the first 9 - 12 months. Watch for spreading redness after 2 days accompanied by heat, swelling, marked increase in pain, purulent drainage. Be seen also for marked increase in headache, visual changes, nausea. Medical Records Medical records reviewed: Yes I reviewed the patient's medical records Discharge Plan Discharge Clinical Impression: Closed head injury, Forehead laceration Patient Disposition: Home w/ Parent or Adult Condition: Improved Additional Instructions: sutures out in 6 - 7 days. antibiotic ointment for 3 - 4 days and then to a dry dressing. ok to get wet but try not to soak while sutures are in. for further scar reduction/wound healing if desired -- after the scab falls off, can apply daily vitamin e oil or something like maderma or silicone-containing ointments or bandaids daily. especially protect from sun exposure for the first 9 - 12 months. Watch for spreading redness after 2 days accompanied by heat, swelling, marked increase in pain, purulent drainage. Be seen also for marked increase in headache, visual changes, nausea. Prescriptions: No Action acetaminophen [Tylenol Extra Strength] 500 mg tablet 1,000 mg PO DAILY amlodipine 5 mg tablet 5 mg PO DAILY Qty: 90 3RF celecoxib [Celebrex] 200 mg capsule 200 mg PO DAILY Qty: 90 3RF Follow Up/Referrals: Piero Vega MD [Primary Care Provider, Family Practice] Stand Alone Forms: [employer] Info Instructions
== END 2025-04-04 12:14 | disposition home or self-care (01) ==
PROVIDERS: Emergency Provider Family Medicine; PCP Family Medicine
DX: S01.112A Laceration without foreign body of left eyelid and periocular area, initial encounter (principal); W01.0XXA Fall on same level from slipping, tripping and stumbling without subsequent striking against object, initial encounter
CPT/HCPCS: 12001; 99283; 99284